=== PATIENT | male | born 1950 | race Two or more races ===

== ENCOUNTER 2024-10-28 11:52 | Inpatient (IN) | payer MEDICARE, MEDICAID ==
[2024-10-28] VITALS (27 sets, daily range): BP systolic 96–140; BP diastolic 65–86; PULSE 37–60; RESP 22–25; TEMP 96.8–99; O2SAT 93–100
[~2024-10-28] VITALS: Ht 177.8 cm; Wt 62.0 kg
[2024-10-28] MEDS: NOREPINEPHRINE 8 MG/250ML KIT 250 ML IV SCH (12:00)
--- NOTE | 2024-10-28 12:04 | ED.PDOC ---
CPR-HPI HPI Comments 72-year-old male with reported PMHx HTN, CAD brought in by EMS presents s/p cardiac arrest. Per EMS, patient was in the car with his and then suddenly became unresponsive. Bystander CPR was commenced for a total of 5 minutes till EMS arrived on scene. Patient was down for approximately 20 minutes then stable ROSC was achieved. Patient was given 3 rounds of Epi, 1 Sodium Bicarb, and 1 Calcium. Blood sugar for EMS was 130. Time Seen by MD: 11:48 Reviewed Notes: Automobile Service Advisor Notes, Medications, Allergies Allergies: Coded Allergies: UNOBTAINABLE (Unverified , 10/28/24) Information Source: Emergency Med Personnel Mode of Arrival: EMS Timing: Minutes Duration: Down time prior EMS: (5 mins), Total time prior hopital: (25 minutes) Onset: At rest, Witnessed Available Hx: Prior Cardiac Disease Inital rhythm: PEA Treatment: CPR, IV, Epinephrine Response: Sustained return of pulse Past Medical History PAST MEDICAL HISTORY: CAD, HTN Surgical History: Unknown Family History Family History: Unknown Social History Smoker: Unknown Alcohol: Unknown Drugs: Unknown Lives In: Home Constitutional: denies: chills, diaphoresis, fatigue, fever, malaise, sweats, weakness, others EENTM: denies: blurred vision, double vision, ear bleeding, ear discharge, ear drainage, ear pain, ear ringing, eye pain, eye redness, hearing loss, mouth pain, mouth swelling, nasal discharge, nose bleeding, nose congestion, nose pain, photophobia, tearing, throat pain, throat swelling, voice changes, others Respiratory: denies: cough, hemoptysis, orthopnea, SOB at rest, shortness of breath, SOB with excertion, stridor, wheezing, others Cardiovascular: denies: chest pain, dizzy spells, diaphoresis, Dyspnea on exertion, edema, irregular heart beat, left arm pain, lightheadedness, palpitations, PND, syncope, others Gastrointestinal: denies: abdomen distended, abdominal pain, blood streaked bowels, constipated, diarrhea, dysphagia, difficulty swallowing, hematemesis, melena, nausea, poor appetite, poor fluid intake, rectal bleeding, rectal pain, vomiting, others Genitourinary: denies: burning, dysuria, flank pain, frequency, hematuria, incontinence, penile discharge, penile sore, pain, testicle pain, testicle swelling, urgency, others Neurological: denies: dizziness, fainting, headache, left sided numbness, left sided weakness, numbness, paresthesia, pre-existing deficit, right sided numbness, right sided weakness, seizure, speech problems, tingling, tremors, weakness, others Musculoskeletal: denies: back pain, gout, joint pain, joint swelling, muscle pain, muscle stiffness, neck pain, others Integumetry: denies: bruises, change in color, change in hair/nails, dryness, laceration, lesions, lumps, rash, wounds, others Allergic/Immunocompromised: denies: Difficulty Healing, Frequent Infections, Hives, Itching, others Hematologic/Lymphatic: denies: anemia, blood clots, easy bleeding, easy bruising, swollen glands, others Endocrine: denies: excessive hunger, excessive sweating, excessive thirst, excessive urination, flushing, intolerance to cold, intolerance to heat, unexplained weight gain, unexplained weight loss, others Psychiatric: denies: anxiety, bipolar disorder, depression, hopeless, panic disorder, schizophrenia, sleepless, suicidal, others Unable to Obtain due to: Medical Urgency (S/P CPR) All Other Systems: Reviewed and Negative Physical Exam General Appearance: Severe Distress (S/P CPR) HEENT: NOT DONE Neck: NOT DONE Respiratory: NOT DONE Cardiovascular: NOT DONE Breast Exam: Deferred Gastrointestinal: NOT DONE Genitalia: Deferred Pelvic: Deferred Rectal: Deferred Extremities: NOT DONE Neurologic: NOT DONE Cerebellar Function: NOT DONE Reflexes: NOT DONE Skin: NOT DONE Lymphatic: NOT DONE Was a procedure done? 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 Physician, Other (Assisted by resident) Indication: Hypotension, Volume resuscitation Room prepared for procedure: Yes Production Foreman performed hand hygien: Yes Maximal sterile barrier precau: Mask/Eye shield, Sterile gown, Cap, Sterlie gloves, Large sterlie drape Skin Preparation: Chlorhexidine gluconate Skin preparation completely dr: Yes Insertion site: Right, Internal jugular Central line catheter type: [id number] dialysis Number of lumens: 3 Central line exchanged over a: Yes Antiseptic ointment applied to: Yes Post Assessment: Chest X-Ray, Proper placement, No Pneumothorax Informed consent obtained: No Risks/benefits/alt described: No Differential Dx CPR Differential Diagnosis: Cardiopulmonary arrest, Cardiac Tamponade, Heart Block, Myocardial Infarction, Pneumothorax, Pulmonary Embolus, Respiratory Failure X-Ray, Labs, Meds, VS Vital Signs Date Time Temp Pulse Resp B/P (MAP) Pulse Ox O2 Delivery O2 Flow Rate FiO2 10/28/24 15:48 44 24 166/83 (110) 40 94 10/28/24 15:21 163/88 10/28/24 15:07 98.6 57 25 135/86 97 100 98.6 10/28/24 15:00 96.3 43 24 168/85 (112) 94 96.3 10/28/24 15:00 168/85 10/28/24 14:45 44 24 94 10/28/24 14:45 163/76 10/28/24 14:41 98.6 57 25 135/86 97 98.6 10/28/24 14:41 57 25 97 Mechanical Ventilator+ 100 100 10/28/24 14:30 96.4 37 23 156/129 (138) 100 96.4 10/28/24 14:30 37 23 100 Mechanical Ventilator+ 50 50 10/28/24 14:30 156/129 10/28/24 14:30 44 21 163/76 (105) 95 10/28/24 14:15 37 23 156/129 (138) 100 10/28/24 14:00 48 24 149/78 (101) 100 10/28/24 14:00 149/78 10/28/24 14:00 149/78 10/28/24 14:00 149/78 10/28/24 13:47 46 24 102/60 (74) 50 96 10/28/24 13:45 130/64 10/28/24 13:30 145/79 10/28/24 13:30 45 24 145/79 (101) 100 10/28/24 13:15 48 22 102/60 (74) 100 10/28/24 13:00 94/49 10/28/24 13:00 94/49 10/28/24 13:00 42 24 94/49 (64) 100 10/28/24 12:45 42 17 79/44 (56) 98 10/28/24 12:30 42 20 100/61 (74) 98 10/28/24 12:15 43 15 107/58 (74) 100 10/28/24 12:06 45 24 65/38 (47) 100 100 10/28/24 12:00 54 18 70/36 (47) 99 10/28/24 12:00 66/35 10/28/24 12:00 66/35 10/28/24 11:54 51 10/28/24 11:52 98.6 57 25 135/86 (102) 98.6 Lab Test 10/28/24 17:32 10/28/24 17:10 10/28/24 15:54 10/28/24 15:02 Range/Units Sodium Level 137 136-145 mmol/L Potassium Level 4.9 # 3.5-5.1 mmol/L Chloride Level 105 98-107 mmol/L Carbon Dioxide Level 23 20-31 mmol/L Anion Gap 9 5-15 Blood Urea Nitrogen 61 #H 9-23 mg/dL Creatinine 4.93 H 0.700-1.30 mg/dL Glomerular Filtration Rate Calc 12 >90 mL/min BUN/Creatinine Ratio 12.4 10.0-20.0 Serum Glucose 127 H 74-106 mg/dL Lactic Acid Level 2.6 *H 0.4-2.0 mmol/L Calcium Level 7.3 L 8.7-10.4 mg/dL Total Bilirubin 0.6 0.2-1.0 mg/dL Direct Bilirubin 0.3 <0.3 mg/dL Aspartate Amino Transferase (AST) Pending Alanine Aminotransferase (ALT) Pending Alkaline Phosphatase 68 46-116 U/L Troponin I High Sensitivity 337 *H 238 *H </=54 ng/L Total Protein 4.9 L 5.7-8.2 g/dL Albumin 3.3 3.2-4.8 g/dL POC Glucose 140 H 114 H 70-106 mg/dl Test 10/28/24 14:54 10/28/24 13:48 10/28/24 13:46 10/28/24 12:10 Range/Units Sodium Level 135 L 136 136-145 mmol/L Potassium Level 7.4 *H 6.0 *H 3.5-5.1 mmol/L Chloride Level 103 104 98-107 mmol/L Carbon Dioxide Level 17 L 15 L 20-31 mmol/L Anion Gap 15 17 H 5-15 Blood Urea Nitrogen 50 H 55 H 9-23 mg/dL Creatinine 4.83 H 4.69 H 0.700-1.30 mg/dL Glomerular Filtration Rate Calc 12 13 >90 mL/min BUN/Creatinine Ratio 10.4 11.7 10.0-20.0 Serum Glucose 117 H 136 H 74-106 mg/dL Calcium Level 7.7 L 8.0 L 8.7-10.4 mg/dL Total Bilirubin 0.5 0.4 0.2-1.0 mg/dL Aspartate Amino Transferase (AST) 2686 H 2766 H 13-40 U/L Alanine Aminotransferase (ALT) 2252 H 2388 H 7-40 U/L Alkaline Phosphatase 71 72 46-116 U/L Total Protein 5.2 L 5.3 L 5.7-8.2 g/dL Albumin 3.4 3.5 3.2-4.8 g/dL Blood Gas Specimen Type Arterial Blood Gas Sample Site Left radial Blood Gas Patient Temperature 37.0 Arterial Blood Date Drawn [id number] Arterial Blood pH 7.214 *L 7.350-7.450 Arterial Blood Partial Pressure CO2 42.1 35.0-48.0 mmHg Arterial Blood Partial Pressure O2 517.9 *H 83.0-108.0 mmHg Arterial Blood HCO3 16.6 L 21.0-28.0 mmol/L Arterial Blood Oxygen Saturation 99.9 H 94.0-98.0 % Arterial Blood Base Excess -10.6 L -2.0-3.0 mmol/L Arterial Blood Oxyhemoglobin 98.3 H 94.0-98.0 % Arterial Blood Carboxyhemoglobin 1.1 0.5-1.5 % Arterial Blood Methemoglobin 0.5 0.0-1.5 % Cristhian Test Modified Blood Gas Total Hemoglobin 11.30 L 13.5-17.5 g/dL Blood Gas Set Respiration Rate 24.0 Blood Gas Modality Vent - ac Blood Gas Spontaneous Rate 24 FiO2 % 100.0 Blood Gas Tidal Volume 500.0 Blood Gas PEEP or CPAP 5.0 Blood Gas Critical Value Read Back Yes Blood Gas Notified Whom Blood Gas Notified Time [id number] Blood Gas Notified By Nakita yang Lactic Acid Level 4.9 *H 0.4-2.0 mmol/L Troponin I High Sensitivity 298 *H </=54 ng/L B-Type Natriuretic Peptide 661.66 0-100 pg/mL Urine Color Pending Urine Clarity Pending Urine pH Pending Urine Specific [place] Pending Urine Protein Pending Urine Ketones Pending Urine Blood Pending Urine Nitrite Pending Urine Bilirubin Pending Urine Urobilinogen Pending Urine Leukocyte Esterase Pending Urine RBC Pending Urine Microscopic WBC Pending Urine Squamous Epithelial Cells Pending Urine Bacteria Pending Urine Glucose Pending Phosphorus Level 11.7 H 2.4-5.1 mg/dL Magnesium Level 1.9 1.6-2.6 mg/dL Lipase 155 H 12-53 U/L Test 10/28/24 12:00 Range/Units White Blood Count 21.2 H 4.4-10.8 10^3/uL Red Blood Count 4.82 4.5-5.90 10^6/uL Hemoglobin 10.8 L 13.5-17.5 g/dL Hematocrit 39.2 L 41.0-53.0 % Mean Corpuscular Volume 81.2 80.0-100.0 fL Mean Corpuscular Hemoglobin 22.3 L 28.0-32.0 pg Mean Corpuscular Hemoglobin Concent 27.5 L 32.0-36.0 g/dL Red Cell Distribution Width 19.0 H 11.8-14.3 % Platelet Count 183 140-450 10^3/uL Mean Platelet Volume 8.5 6.9-10.8 fL Neutrophils (%) (Auto) 37.0-80.0 % Lymphocytes (%) (Auto) 10.0-50.0 % Monocytes (%) (Auto) 0.0-12.0 % Basophils (%) (Auto) 0.0-2.0 % Neutrophils # (Auto) 1.6-8.6 10 ^3/uL Lymphocytes # (Auto) 0.4-5.4 10 ^3/uL Monocytes # (Auto) 0-1.3 10 ^3/uL Differential Total Cells Counted 100.0 100 Neutrophils % (Manual) 78 37.0-80.0 Band Neutrophils % (Manual) 7 Lymphocytes % (Manual) 10 10.0-50.0 Monocytes % (Manual) 5 0-12 Eosinophils % (Manual) 0 0-7 Basophils % (Manual) 0 0.0-2.0 Metamyelocytes % (manual) 0 Myelocytes % (Manual) 0 Promyelocytes % (Manual) 0 Blast Cells % (Manual) 0 Reactive Lymphocytes 0 Platelet Estimate Adequate Hypochromasia (manual) Moderate Lactic Acid Level 7.7 *H 0.4-2.0 mmol/L Troponin I High Sensitivity 326 *H </=54 ng/L Current Medications Medications (Trade) Dose Ordered Sig/Sarita Route Start Time Stop Time Status Last Admin Calcium Gluconate/ Sodium Chloride 50 ml @ 100 mls/hr Q30M ONCE IV 10/28/24 13:15 10/28/24 13:44 DC 10/28/24 12:50 Sodium Bicarbonate 100 ml ONCE ONCE IV 10/28/24 13:15 10/28/24 13:16 DC 10/28/24 12:50 Cefepime HCl 50 ml @ 12.5 mls/hr ONCE ONCE IV 10/28/24 13:45 10/28/24 17:44 DC 10/28/24 15:08 Insulin Human Regular (InsuLIN R) 10 units ONCE ONCE IV 10/28/24 13:45 10/28/24 13:46 DC 10/28/24 15:37 Dextrose 50 ml ONCE ONCE IV 10/28/24 13:45 10/28/24 13:46 DC 10/28/24 15:37 Calcium Gluconate/ Sodium Chloride 50 ml @ 100 mls/hr Q30M IV 10/28/24 13:45 10/28/24 14:44 DC 10/28/24 14:00 Dopamine HCl/ Dextrose 250 ml @ 15.375 mls/ hr [id number] IV 10/28/24 13:45 10/28/24 14:00 Midazolam HCl 50 ml @ 1 mls/hr Q24H IV 10/28/24 14:45 10/28/24 15:21 Norepinephrine Bitartrate 250 ml @ 3.75 mls/hr Q24H IV 10/28/24 15:00 10/28/24 12:00 Time of 1ST Reevaluation: 12:00 Reevaluation 1ST: Unchanged Patient Education/Counseling: Pt Unresponsive Family Education/Counseling: No Family Present SEPSIS Sepsis Screen Physician Orders Ventilator Orders (10/28/24 12:00) Abg W/ Co-Ox (10/28/24 13:00) Respiratory Culture W/ Gs (10/28/24 12:00) Electrocardigram (10/28/24 11:59) Urinalysis (10/28/24 12:10) Chest Portable (10/28/24 12:10) Blood Culture (10/28/24 12:10) Head Without Contrast (10/28/24 12:10) Dobutamine 1000mcg/Ml (Dobutrex) (10/28/24 13:15) Sodium Chl 0.9% (So... W/Vasopressin (10/28/24 13:15) Dopamine 1600mcg/Ml D5w (10/28/24 13:45) Midazolam Drip 50 Mg/50ml (Versed Drip 5 (10/28/24 14:45) Rass Sedation Scale Q1HR (10/28/24 14:35) Norepinephrine 8 Mg/250ml Kit (Levophed) (10/28/24 15:00) Communication Order (10/28/24 14:52) Communication Order (10/28/24 14:52) Troponin-I Hs (10/28/24 16:56) Troponin-I Hs (10/28/24 18:56) Wound Culture W/ Gs (10/28/24 16:42) Comprehensive Metabolic Panel (10/28/24 17:17) Basic Metabolic Panel (10/28/24 21:39) Basic Metabolic Panel (10/29/24 01:39) Basic Metabolic Panel (10/29/24 05:39) Basic Metabolic Panel (10/29/24 09:39) Basic Metabolic Panel (10/29/24 13:39) Basic Metabolic Panel (10/29/24 17:39) Basic Metabolic Panel (10/29/24 21:39) Basic Metabolic Panel (10/30/24 01:39) Basic Metabolic Panel (10/30/24 05:39) Vancomycin Per Pharmacy (10/28/24 17:45) Piperacillin-Tazob 3.375gm (Zosyn 3.375g (10/28/24 18:00) Vital Signs Date Time Temp Pulse Resp B/P (MAP) Pulse Ox O2 Delivery O2 Flow Rate FiO2 10/28/24 15:48 44 24 166/83 (110) 40 94 10/28/24 15:21 163/88 10/28/24 15:07 98.6 57 25 135/86 97 100 98.6 10/28/24 15:00 96.3 43 24 168/85 (112) 94 96.3 7/30/25 15:00 168/85 10/28/24 14:45 44 24 94 10/28/24 14:45 163/76 10/28/24 14:41 98.6 57 25 135/86 97 98.6 10/28/24 14:41 57 25 97 Mechanical Ventilator+ 100 100 10/28/24 14:30 96.4 37 23 156/129 (138) 100 96.4 10/28/24 14:30 37 23 100 Mechanical Ventilator+ 50 50 10/28/24 14:30 156/129 10/28/24 14:30 44 21 163/76 (105) 95 10/28/24 14:15 37 23 156/129 (138) 100 10/28/24 14:00 48 24 149/78 (101) 100 10/28/24 14:00 149/78 10/28/24 14:00 149/78 10/28/24 14:00 149/78 10/28/24 13:47 46 24 102/60 (74) 50 96 10/28/24 13:45 130/64 10/28/24 13:30 145/79 10/28/24 13:30 45 24 145/79 (101) 100 10/28/24 13:15 48 22 102/60 (74) 100 10/28/24 13:00 94/49 10/28/24 13:00 94/49 10/28/24 13:00 42 24 94/49 (64) 100 10/28/24 12:45 42 17 79/44 (56) 98 10/28/24 12:30 42 20 100/61 (74) 98 10/28/24 12:15 43 15 107/58 (74) 100 10/28/24 12:06 45 24 65/38 (47) 100 100 10/28/24 12:00 54 18 70/36 (47) 99 10/28/24 12:00 66/35 10/28/24 12:00 66/35 10/28/24 11:54 51 10/28/24 11:52 98.6 57 25 135/86 (102) 98.6 Laboratory Tests Test 10/28/24 12:00 10/28/24 13:46 10/28/24 17:32 Lactic Acid Level 7.7 mmol/L (0.4-2.0) *H 4.9 mmol/L (0.4-2.0) *H 2.6 mmol/L (0.4-2.0) *H White Blood Count 21.2 10^3/uL (4.4-10.8) H Medications Medications Dose Ordered Sig/Sarita Route Start Time Stop Time Status Last Admin Dose Admin Calcium Gluconate/ Sodium Chloride 50 ml @ 100 mls/hr Q30M IV 10/28/24 13:45 10/28/24 14:44 DC 10/28/24 14:00 Calcium Gluconate/ Sodium Chloride 50 ml @ 100 mls/hr Q30M ONCE IV 10/28/24 13:15 10/28/24 13:44 DC 10/28/24 12:50 Cefepime HCl 50 ml @ 12.5 mls/hr ONCE ONCE IV 10/28/24 13:45 10/28/24 17:44 DC 10/28/24 15:08 Dextrose 50 ml ONCE ONCE IV 10/28/24 13:45 10/28/24 13:46 DC 10/28/24 15:37 Dopamine HCl/ Dextrose 250 ml @ 15.375 mls/ hr [id number] IV 10/28/24 13:45 10/28/24 14:00 Insulin Human Regular 10 units ONCE ONCE IV 10/28/24 13:45 10/28/24 13:46 DC 10/28/24 15:37 Midazolam HCl 50 ml @ 1 mls/hr Q24H IV 10/28/24 14:45 10/28/24 15:21 Norepinephrine Bitartrate 250 ml @ 3.75 mls/hr Q24H IV 10/28/24 15:00 10/28/24 12:00 Sodium Bicarbonate 100 ml ONCE ONCE IV 10/28/24 13:15 10/28/24 13:16 DC 10/28/24 12:50 Departure 1 Departure Time of Disposition: 18:43 (Patient presented in status post cardiac arrest. Patient was intubated in the field. A central line placed emergently and was started on vasopressors. Patient's empirically cover with antibiotics. We will admit patient for further workup and expert consultation) Impression: Primary Impression: Cardiac arrest Additional Impression: Acute hypoxic respiratory failure Disposition: ADMITTED INPATIENT Admit to: ICU Condition: Critical Critical Care Note Critical Care Time?: Yes Critical care comment: Status post cardiac arrest Authorized and Performed by: Ludwin Robertson MD Total critical care time: Approximately 192 minutes Due to a high probability of clinically significant, life threatening deterioration, the patient required my highest level of preparedness to intervene emergently and I personally spent this critical care time directly and personally managing the patient. This critical care time included obtaining a history; examining the patient; pulse oximetry; ordering and review of studies; arranging urgent treatment with development of a management plan; evaluation of patient's response to treatment; frequent reassessment; and, discussions with other providers. This critical care time was performed to assess and manage the high probability of imminent, life-threatening deterioration that could result in multi-organ failure. It was exclusive of separately billable procedures and treating other patients and teaching time. Please see my other sections and the rest of the note for further information on patient assessment and treatment. Heart Score Heart Score: Heart Score Response (Comments) Value History Highly Suspicious [address]-Deviation 2 Age >65 2 Risk Factors >3 or Hx ASHD 2 Troponin >3 x's Normal limit 2 Total 10 Stability Stability form required: No I personally scribed for LUDWIN ROBERTSON MD ([email or web address]) on 10/28/24 at 12:04. Electronically submitted by Scott Middleton [email or web address]). LUDWIN ROBERTSON MD Oct 28, 2024 12:04
[2024-10-28 12:46] LABS: Mean Corpuscular Volume 81.2 fL (80.0-100.0)
[2024-10-28 12:48] LABS: Hematocrit 39.2 % (41.0-53.0); Hemoglobin 10.8 g/dL (13.5-17.5); Mean Corpuscular Hemoglobin 22.3 pg (28.0-32.0)
[2024-10-28] MEDS: SODIUM BICARB 8.4% 50Meq/50ml SYR Vial IV ONE ×2 (12:50→14:32)
[2024-10-28] MEDS: CALCIUM GLUC 1,000mg/50ml-NS 50 ML IV ONE ×2 (12:50→18:52)
[2024-10-28 13:07] LABS: Lactic Acid w/Reflex 7.7 mmol/L (0.4-2.0)
--- NOTE | 2024-10-28 13:11 | DVHNC2 ---
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: Name of pallet stone inserter (BrayanDyllan) Indication: Hypotension, CVP monitoring, Volume resuscitation Room prepared for procedure: Yes Log Roper performed hand hygien: Yes Maximal sterile barrier precau: Mask/Eye shield, Sterile gown, Cap, Sterlie gloves, Large sterlie drape Skin Preparation: Chlorhexidine gluconate, Providine iodine Skin preparation completely dr: Yes Insertion site: Right, Internal jugular Central line catheter type: [id number] dialysis Number of lumens: 3 Central line exchanged over a: No Antiseptic ointment applied to: Yes Post Assessment: Chest X-Ray, No Pneumothorax Notes . A time out was performed. My hands were washed and used a sterile gown and gloves. RIGHT chest region was prepped using chlorhexidine scrub and draped in sterile fashion using a full drape and sterile probe cover and sterile gel employed. The medial and lateral heads of the sternocleidomastoid muscle were identified as was the carotid pulse. The Internal Jugular vein was identified using the ultrasound. Anesthesia was achieved over the vein using 1% lidocaine. Using real-time out of plane guidance, the introducer needle was inserted into the Internal Jugular vein under direct ultrasound visualization. Venous blood was withdrawn. The syringe was removed and a guidewire was advanced into the introducer needle. The guidewire was visualized in the Internal Jugular Vein by ultrasound. A small incision was made at the skin surface with a scalpel and the introducer needle was exchanged for a dilator over the guidewire. After appropriate dilation was obtained, the dilator was exchanged over the wire for a _ central venous catheter. The wire was removed and the catheter was sutured in place at 2 places. A sterile sorbaview shield was placed over the catheter at the insertion site. The patient tolerated the procedure without any hemodynamic compromise. At time of procedure completion, all ports aspirated and flushed properly. Post-procedure chest x-ray ruled out pneumothorax. Date of Service: Oct 28, 2024 Billing Provider: LUDWIN RIVAS MD Common Visit Codes: PROCEDURE ONLY Procedure Codes: 44755-SWPHFP NON-TUNNEL CV CATH DYLLAN CARDONA RESIDENT Oct 28, 2024 13:11
[2024-10-28 13:12] LABS: Albumin 3.5 g/dL (3.2-4.8); Alkaline Phosphatase 72 U/L (46-116); Anion Gap 17 (5-15); BUN/Creatinine Ratio 11.7 (10.0-20.0); Bilirubin, Total 0.4 mg/dL (0.2-1.0); Chloride 104 mmol/L (98-107); Magnesium 1.9 mg/dL (1.6-2.6)
[2024-10-28] MEDS: DOBUTamine 1000MCG/ML 250 ML IV ONE ×2 (13:15→14:33)
[2024-10-28] MEDS: VASOPRESSIN 20 UNITS in SODIUM CHL 0.9% 99 ML IV SCH (13:15)
[2024-10-28 13:26] LABS: Alanine Aminotransferase 2388 U/L (7-40); Blood Urea Nitrogen 55 mg/dL (9-23); Calcium 8.0 mg/dL (8.7-10.4); Carbon Dioxide 15 mmol/L (20-31); Glucose 136 mg/dL (74-106); Lipase 155 U/L (12-53); Sodium 136 mmol/L (136-145); Total Protein 5.3 g/dL (5.7-8.2)
[2024-10-28 13:30] LABS: Potassium 6.0 mmol/L (3.5-5.1)
[2024-10-28] MEDS: CALCIUM GLUC 1,000mg/50ml-NS 50 ML IV SCH (13:30)
[2024-10-28 13:32] LABS: Total Cells Counted 100.0 (100)
--- NOTE | 2024-10-28 13:40 | DVH ---
CHEST RADIOGRAPH Indication: cardiac arrest Technique: Single frontal view of the chest was obtained COMPARISON: None FINDINGS: Lines and Tubes: Endotracheal tube, enteric catheter and right central venous catheter in satisfactor y position. Lungs: Clear Pleura: No effusion. No pneumothorax. Cardiomediastinal contours: Unremarkable Bones: Unremarkable IMPRESSION: Endotracheal tube, enteric catheter and right central venous catheter in satisfactory position.
[2024-10-28 13:57] LABS: Base Excess -10.6 mmol/L (-2.0-3.0)
[2024-10-28] MEDS: DOPamine 1600MCG/ML D5W 250 ML IV SCH (14:00)
--- NOTE | 2024-10-28 14:31 | DVH ---
EXAM: CT HEAD WITHOUT CONTRAST HISTORY: cardiac arrest COMPARISON: None TECHNIQUE: Noncontrast axial CT images of the head were performed. Sagittal and coronal reformatted i mages were obtained. This CT exam was performed using 1 or more of the following dose reduction techn iques: Automated exposure control, adjustment of the mA and/or kv according to patient size, or the u se of iterative reconstruction techniques. Radiation Dose: CTDI volume is 55.89 mGy. Dose-length product is 1099.68 mGy*cm FINDINGS: There is mild global brain atrophy. No intracranial hemorrhage, mass, midline shift, hydrocephalus, o r evidence of acute large vessel infarct. There is mild sclerosis and fluid density in the bilateral mastoid air cells. There is mucosal thickening of the right ethmoid and sphenoid sinuses. No cranial fracture or scalp edema. Endotracheal tube and left NG tube are partially visualized. The patient is completely edentulous. IMPRESSION: 1. No acute intracranial process. 2. Mechanical ventilation with partially visualized Endotracheal tube and Left NG tube. 3. Mild right ethmoid and sphenoid sinus disease. 4. 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
[2024-10-28] MEDS: NOREPINEPHRINE 8 MG/250ML KIT 250 ML IV ONE (14:32)
[2024-10-28] MEDS: VASOPRESSIN 20 UNIT/ML ONE (14:34)
[2024-10-28] MEDS: CALCIUM GLUC 1,000mg/50ml-NS 100 ML IV ONE (14:34)
[2024-10-28] MEDS: MIDAZOLAM DRIP 50 mg/50mL 50 ML IV ONE (14:35)
[2024-10-28] MEDS: CEFEPIME 2GM/50ML NS 50 ML IV ONE (15:08)
[2024-10-28] MEDS: MIDAZOLAM DRIP 50 mg/50mL 50 ML IV SCH (15:21)
[2024-10-28] MEDS: DEXTROSE (50%) 50ML SYRG IV ONE (15:37)
[2024-10-28] MEDS: InsuLIN REG 1unit/0.01ml Soln (100units/ml) IV ONE ×2 (15:37→18:32)
[2024-10-28 16:45] LABS: Albumin 3.4 g/dL (3.2-4.8); Bilirubin, Total 0.5 mg/dL (0.2-1.0)
[2024-10-28 16:46] LABS: Chloride 103 mmol/L (98-107)
[2024-10-28 16:54] LABS: BUN/Creatinine Ratio 10.4 (10.0-20.0)
[2024-10-28 17:02] LABS: Sodium 135 mmol/L (136-145)
[2024-10-28 17:04] LABS: Alanine Aminotransferase 2252 U/L (7-40); Alkaline Phosphatase 71 U/L (46-116); Anion Gap 15 (5-15); Blood Urea Nitrogen 50 mg/dL (9-23); Calcium 7.7 mg/dL (8.7-10.4); Carbon Dioxide 17 mmol/L (20-31); Glucose 117 mg/dL (74-106); Potassium 7.4 mmol/L (3.5-5.1); Total Protein 5.2 g/dL (5.7-8.2)
[2024-10-28] MEDS ORDERED: VANCOMYCIN PER PHARMACY 0 MG IV SCH (17:45)
[2024-10-28] MEDS ORDERED: HYDROmorphone HCL 2 MG/ML VL/or syr IV PRN (17:45)
[2024-10-28] MEDS ORDERED: ONDANSETRON HCL 4 MG/2 ML VIAL IV PRN (17:45)
--- NOTE | 2024-10-28 17:56 | DVHHP2 ---
Admitting Diagnosis: Cardiac arrest achieved rosc History of Present Illness 72-year-old male with reported PMHx HTN, CAD brought in by EMS presents s/p cardiac arrest. Per EMS, patient was in the car with his and then suddenly became unresponsive. Bystander CPR was commenced for a total of 5 minutes till EMS arrived on scene. Patient was down for approximately 20 minutes then stable ROSC was achieved. Patient was given 3 rounds of Epi, 1 Sodium Bicarb, and 1 Calcium. Blood sugar for EMS was 130. PAST MEDICAL HISTORY: CAD, HTN Surgical History: Unknown Family History Family History: Unknown Social History Smoker: Unknown Alcohol: Unknown Drugs: Unknown Lives In: Home Allergies: Coded Allergies: UNOBTAINABLE (Unverified , 10/28/24) Current Medications Current Medications Medications (Trade) Dose Ordered Sig/Sarita Route PRN Reason Start Time Stop Time Status Last Admin Vasopressin 20 units/Sodium Chloride 100 ml @ 9 mls/hr Q11H7M IV 10/28/24 13:15 Calcium Gluconate/ Sodium Chloride 50 ml @ 100 mls/hr Q30M IV 10/28/24 13:45 10/28/24 14:44 DC 10/28/24 14:00 Dopamine HCl/ Dextrose 250 ml @ 15.375 mls/ hr [id number] IV 10/28/24 13:45 10/28/24 14:00 Midazolam HCl 50 ml @ 1 mls/hr Q24H IV 10/28/24 14:45 10/28/24 15:21 Norepinephrine Bitartrate 250 ml @ 3.75 mls/hr Q24H IV 10/28/24 15:00 10/28/24 12:00 Vancomycin HCl 0 ml @ 0 mls/hr UD IV 10/28/24 17:45 UNV Piperacillin Sod/ Tazobactam Sod 100 ml @ 100 mls/hr Q8H IV 10/28/24 17:45 UNV Sodium Chloride (Saline Lock Ns) 10 ml Q8HR IV 10/28/24 22:00 UNV Hydromorphone HCl (Dilaudid Injection) 0.5 mg Q4HP PRN IV SEVERE PAIN (7-10 PAIN SCALE) 10/28/24 17:45 UNV Ondansetron HCl (Zofran) 4 mg Q4HP PRN IV NAUSEA / VOMITING 10/28/24 17:45 UNV Vital Signs Vital Signs Date Time Temp Pulse Resp B/P (MAP) Pulse Ox O2 Delivery O2 Flow Rate FiO2 10/28/24 15:48 44 24 166/83 (110) 40 94 10/28/24 15:07 98.6 98.6 10/28/24 14:41 Mechanical Ventilator+ Physical Exam Generally-72 years old male, intubated, sedated. No apparent distress HEENT-atraumatic, normocephalic nine heart-sinus bradycardic Clear to auscultate bilaterally Abdomen soft nontender nondistended Musculoskeletal-no edema cyanosis Neuro-intubated and sedated SEPSIS Sepsis Screen Date sepsis recognized/suspect: Oct 28, 2024 Time Sepsis recognized/suspect: 115 Recent Procedure: No On Antibiotic Therapy: No Respiratory Rate >20: Yes Heart Rate >90: No Temp<36 C (96.8 F) or >38.3 C: No SBP <90 or MAP <65 mmHG: No New Acute Mental Status Change: Yes Is the patient on CPAP, BIPAP,: Yes Physician Orders Ventilator Orders (10/28/24 12:00) Abg W/ Co-Ox (10/28/24 13:00) Respiratory Culture W/ Gs (10/28/24 12:00) Electrocardigram (10/28/24 11:59) Urinalysis (10/28/24 12:10) Chest Portable (10/28/24 12:10) Blood Culture (10/28/24 12:10) Head Without Contrast (10/28/24 12:10) Dobutamine 1000mcg/Ml (Dobutrex) (10/28/24 13:15) Sodium Chl 0.9% (So... W/Vasopressin (10/28/24 13:15) Cefepime 2gm/50ml Ns (Maxipime 2gm/50ml) (10/28/24 13:45) Dopamine 1600mcg/Ml D5w (10/28/24 13:45) Midazolam Drip 50 Mg/50ml (Versed Drip 5 (10/28/24 14:45) Rass Sedation Scale Q1HR (10/28/24 14:35) Norepinephrine 8 Mg/250ml Kit (Levophed) (10/28/24 15:00) Communication Order (10/28/24 14:52) Communication Order (10/28/24 14:52) Troponin-I Hs (10/28/24 15:56) Troponin-I Hs (10/28/24 16:56) Troponin-I Hs (10/28/24 18:56) Lactic Acid W/ Reflex Order (10/28/24 15:56) Echo 2d Mode Cardiac Dop (10/28/24 15:56) Wound Culture W/ Gs (10/28/24 16:42) Comprehensive Metabolic Panel (10/28/24 17:17) Insulin R (Human) (Insulin R) (10/28/24 17:45) Calcitriol Injectable (Calcitriol Inject (10/28/24 17:45) Basic Metabolic Panel (10/28/24 17:39) Basic Metabolic Panel (10/28/24 21:39) Basic Metabolic Panel (10/29/24 01:39) Basic Metabolic Panel (10/29/24 05:39) Basic Metabolic Panel (10/29/24 09:39) Basic Metabolic Panel (10/29/24 13:39) Basic Metabolic Panel (10/29/24 17:39) Basic Metabolic Panel (10/29/24 21:39) Basic Metabolic Panel (10/30/24 01:39) Basic Metabolic Panel (10/30/24 05:39) Vancomycin Per Pharmacy (10/28/24 17:45) Piperacillin-Tazob 3.375gm (Zosyn 3.375g (10/28/24 17:45) Admit (10/28/24 17:40) Code Status (10/28/24 17:40) Vital Signs .PER UNIT PROTOCOL (10/28/24 17:40) Review Orders With Adm. (10/28/24 17:40) Encourage Activity As Tolerate (10/28/24 17:40) Npo (Nothing By Mouth) Diet (10/28/24 Dinner) Sodium Chloride Lock (Saline Lock Ns) (10/28/24 22:00) Notify Md Of Changes From Base (10/28/24 17:40) Advance Directive (10/28/24 17:40) Patient Condition (10/28/24 17:40) Allergies (10/28/24 17:40) Hydromorphone Injection (Dilaudid Inject (10/28/24 17:45) Ondansetron Hcl (Zofran) (10/28/24 17:45) Complete Blood Count (10/29/24 05:00) Complete Blood Count (10/30/24 05:00) Complete Blood Count (10/31/24 05:00) Complete Blood Count (11/01/24 05:00) Complete Blood Count (11/02/24 05:00) Comprehensive Metabolic Panel (10/29/24 05:00) Comprehensive Metabolic Panel (10/30/24 05:00) Comprehensive Metabolic Panel (10/31/24 05:00) Comprehensive Metabolic Panel (11/01/24 05:00) Comprehensive Metabolic Panel (11/02/24 05:00) Vital Signs Date Time Temp Pulse Resp B/P (MAP) Pulse Ox O2 Delivery O2 Flow Rate FiO2 10/28/24 15:48 44 24 166/83 (110) 40 94 10/28/24 15:21 163/88 10/28/24 15:07 98.6 57 25 135/86 97 100 98.6 10/28/24 15:00 168/85 10/28/24 14:45 44 24 94 10/28/24 14:45 163/76 10/28/24 14:41 98.6 57 25 135/86 97 98.6 10/28/24 14:41 57 25 97 Mechanical Ventilator+ 100 100 10/28/24 14:30 96.4 37 23 156/129 (138) 100 96.4 10/28/24 14:30 37 23 100 Mechanical Ventilator+ 50 50 10/28/24 14:30 156/129 10/28/24 14:30 44 21 163/76 (105) 95 10/28/24 14:15 37 23 156/129 (138) 100 10/28/24 14:00 48 24 149/78 (101) 100 10/28/24 14:00 149/78 10/28/24 14:00 149/78 10/28/24 14:00 149/78 10/28/24 13:47 46 24 102/60 (74) 50 96 10/28/24 13:45 130/64 10/28/24 13:30 145/79 10/28/24 13:30 45 24 145/79 (101) 100 10/28/24 13:15 48 22 102/60 (74) 100 10/28/24 13:00 94/49 10/28/24 13:00 94/49 10/28/24 13:00 42 24 94/49 (64) 100 10/28/24 12:45 42 17 79/44 (56) 98 10/28/24 12:30 42 20 100/61 (74) 98 10/28/24 12:15 43 15 107/58 (74) 100 10/28/24 12:06 45 24 65/38 (47) 100 100 10/28/24 12:00 54 18 70/36 (47) 99 10/28/24 12:00 66/35 10/28/24 12:00 66/35 10/28/24 11:54 51 10/28/24 11:52 98.6 57 25 135/86 (102) 98.6 Laboratory Tests Test 10/28/24 12:00 10/28/24 13:46 Lactic Acid Level 7.7 mmol/L (0.4-2.0) *H 4.9 mmol/L (0.4-2.0) *H White Blood Count 21.2 10^3/uL (4.4-10.8) H Medications Medications Dose Ordered Sig/Sarita Route Start Time Stop Time Status Last Admin Dose Admin Calcium Gluconate/ Sodium Chloride 50 ml @ 100 mls/hr Q30M IV 10/28/24 13:45 10/28/24 14:44 DC 10/28/24 14:00 Calcium Gluconate/ Sodium Chloride 50 ml @ 100 mls/hr Q30M ONCE IV 10/28/24 13:15 10/28/24 13:44 DC 10/28/24 12:50 Cefepime HCl 50 ml @ 12.5 mls/hr ONCE ONCE IV 10/28/24 13:45 10/28/24 17:44 10/28/24 15:08 Dextrose 50 ml ONCE ONCE IV 10/28/24 13:45 10/28/24 13:46 DC 10/28/24 15:37 Dopamine HCl/ Dextrose 250 ml @ 15.375 mls/ hr [id number] IV 10/28/24 13:45 10/28/24 14:00 Insulin Human Regular 10 units ONCE ONCE IV 10/28/24 13:45 10/28/24 13:46 DC 10/28/24 15:37 Midazolam HCl 50 ml @ 1 mls/hr Q24H IV 10/28/24 14:45 10/28/24 15:21 Norepinephrine Bitartrate 250 ml @ 3.75 mls/hr Q24H IV 10/28/24 15:00 10/28/24 12:00 Sodium Bicarbonate 100 ml ONCE ONCE IV 10/28/24 13:15 10/28/24 13:16 DC 10/28/24 12:50 Results Labs Test 10/28/24 17:10 10/28/24 15:54 10/28/24 14:54 10/28/24 13:48 Range/Units POC Glucose 140 H 70-106 mg/dl Troponin I High Sensitivity 238 *H </=54 ng/L Sodium Level 135 L 136-145 mmol/L Potassium Level 7.4 *H 3.5-5.1 mmol/L Chloride Level 103 98-107 mmol/L Carbon Dioxide Level 17 L 20-31 mmol/L Anion Gap 15 5-15 Blood Urea Nitrogen 50 H 9-23 mg/dL Creatinine 4.83 H 0.700-1.30 mg/dL Glomerular Filtration Rate Calc 12 >90 mL/min BUN/Creatinine Ratio 10.4 10.0-20.0 Serum Glucose 117 H 74-106 mg/dL Calcium Level 7.7 L 8.7-10.4 mg/dL Total Bilirubin 0.5 0.2-1.0 mg/dL Aspartate Amino Transferase (AST) 2686 H 13-40 U/L Alanine Aminotransferase (ALT) 2252 H 7-40 U/L Alkaline Phosphatase 71 46-116 U/L Total Protein 5.2 L 5.7-8.2 g/dL Albumin 3.4 3.2-4.8 g/dL Blood Gas Specimen Type Arterial Blood Gas Sample Site Left radial Blood Gas Patient Temperature 37.0 Arterial Blood Date Drawn [id number] Arterial Blood pH 7.214 *L 7.350-7.450 Arterial Blood Partial Pressure CO2 42.1 35.0-48.0 mmHg Arterial Blood Partial Pressure O2 517.9 *H 83.0-108.0 mmHg Arterial Blood HCO3 16.6 L 21.0-28.0 mmol/L Arterial Blood Oxygen Saturation 99.9 H 94.0-98.0 % Arterial Blood Base Excess -10.6 L -2.0-3.0 mmol/L Arterial Blood Oxyhemoglobin 98.3 H 94.0-98.0 % Arterial Blood Carboxyhemoglobin 1.1 0.5-1.5 % Arterial Blood Methemoglobin 0.5 0.0-1.5 % Cristhian Test Modified Blood Gas Total Hemoglobin 11.30 L 13.5-17.5 g/dL Blood Gas Set Respiration Rate 24.0 Blood Gas Modality Vent - ac Blood Gas Spontaneous Rate 24 FiO2 % 100.0 Blood Gas Tidal Volume 500.0 Blood Gas PEEP or CPAP 5.0 Blood Gas Critical Value Read Back Yes Blood Gas Notified Whom Blood Gas Notified Time [id number] Blood Gas Notified By Nakita ernandez rt Test 10/28/24 13:46 10/28/24 12:10 10/28/24 12:00 Range/Units Lactic Acid Level 4.9 *H 0.4-2.0 mmol/L B-Type Natriuretic Peptide 661.66 0-100 pg/mL Phosphorus Level 11.7 H 2.4-5.1 mg/dL Magnesium Level 1.9 1.6-2.6 mg/dL Lipase 155 H 12-53 U/L White Blood Count 21.2 H 4.4-10.8 10^3/uL Red Blood Count 4.82 4.5-5.90 10^6/uL Hemoglobin 10.8 L 13.5-17.5 g/dL Hematocrit 39.2 L 41.0-53.0 % Mean Corpuscular Volume 81.2 80.0-100.0 fL Mean Corpuscular Hemoglobin 22.3 L 28.0-32.0 pg Mean Corpuscular Hemoglobin Concent 27.5 L 32.0-36.0 g/dL Red Cell Distribution Width 19.0 H 11.8-14.3 % Platelet Count 183 140-450 10^3/uL Mean Platelet Volume 8.5 6.9-10.8 fL Neutrophils (%) (Auto) 37.0-80.0 % Lymphocytes (%) (Auto) 10.0-50.0 % Monocytes (%) (Auto) 0.0-12.0 % Basophils (%) (Auto) 0.0-2.0 % Neutrophils # (Auto) 1.6-8.6 10 ^3/uL Lymphocytes # (Auto) 0.4-5.4 10 ^3/uL Monocytes # (Auto) 0-1.3 10 ^3/uL Differential Total Cells Counted 100.0 100 Neutrophils % (Manual) 78 37.0-80.0 Band Neutrophils % (Manual) 7 Lymphocytes % (Manual) 10 10.0-50.0 Monocytes % (Manual) 5 0-12 Eosinophils % (Manual) 0 0-7 Basophils % (Manual) 0 0.0-2.0 Metamyelocytes % (manual) 0 Myelocytes % (Manual) 0 Promyelocytes % (Manual) 0 Blast Cells % (Manual) 0 Reactive Lymphocytes 0 Platelet Estimate Adequate Hypochromasia (manual) Moderate Primary Diagnosis Cardiac arrest achieved cirrhosis Septic shock Elevated troponin rule out ACS Lactic acidosis Left knee edema Acute hypoxic respiratory failure requiring intubation WILMER on CKD Hyperkalemia Plan Patient is on pressors for pressure support. goal MAP > 65 while septic IV vanco/zosyn Check BCx, sputum culture, urine culture daily abg continue vent daily SBT/SAT monitor urine output trend lactic acid until normalize trend trop until plateau. if elevated repeat ekg check echo cardiology consult nephrology consult checkurine sodium, urine creatinine check BMP q4h until normalize if elevated, follow hyperkalemia protocol or page physician full code NPO inset NGT scd for dvt ppx ppi for gi ppx Plan discussed with: Patient Problems List: (1) Cardiac arrest (2) WILMER (acute kidney injury) (3) Acute hypoxic respiratory failure Date of Service: Oct 28, 2024 Billing Provider: KELLY WALL MD Common Visit Codes: [id number] CARE 30-74 MIN, [id number] CARE-EACH +30MIN KELLY WALL MD Oct 28, 2024 17:56
[2024-10-28] MEDS: SODIUM CHLORIDE 0.9% 1,000 ML IV ONE (18:05)
[2024-10-28 18:12] LABS: Alkaline Phosphatase 68 U/L (46-116); BUN/Creatinine Ratio 12.4 (10.0-20.0); Carbon Dioxide 23 mmol/L (20-31)
[2024-10-28 18:13] LABS: Albumin 3.2 g/dL (3.2-4.8); Bilirubin, Total 0.6 mg/dL (0.2-1.0)
[2024-10-28 18:15] LABS: Anion Gap 9 (5-15)
[2024-10-28 18:16] LABS: Blood Urea Nitrogen 61 mg/dL (9-23); Calcium 7.3 mg/dL (8.7-10.4); Chloride 105 mmol/L (98-107); Glucose 127 mg/dL (74-106); Potassium 4.9 mmol/L (3.5-5.1); Sodium 137 mmol/L (136-145); Total Protein 4.9 g/dL (5.7-8.2)
[2024-10-28 18:17] LABS: Lactic Acid w/Reflex 2.6 mmol/L (0.4-2.0)
[2024-10-28 18:20] LABS: Albumin 3.3 g/dL (3.2-4.8); Alkaline Phosphatase 68.0 U/L (46-116); Bilirubin, Direct 0.3 mg/dL (<0.3); Bilirubin, Total 0.6 mg/dL (0.2-1.0); Total Protein 4.9 g/dL (5.7-8.2)
[2024-10-28] MEDS: CALCITRIOL 1 MCG/ML AMPULE IV ONE (18:24)
[2024-10-28] MEDS: PIPERACILLIN-TAZOB 3.375GM 100 ML IV ONE (18:36)
[2024-10-28 18:45] LABS: Alanine Aminotransferase 2140.0 U/L (7-40)
[2024-10-28 18:46] LABS: Alanine Aminotransferase 2147 U/L (7-40)
--- NOTE | 2024-10-28 19:37 | DVH ---
ABDOMINAL ULTRASOUND CLINICAL HISTORY: elevated liver enzyme and abeba TECHNIQUE: Multiple grayscale and color Doppler ultrasound images were obtained of the abdomen. WID: COMPARISON: None FINDINGS: Liver and Biliary System: Homogeneous echotexture, normal size measuring 16.1 cm. No focal hepatic observations. No intrahepatic bile duct dilatation. The common duct measures 0.8 cm at the malina h epatis. The gallbladder is distended with wall thickening and edema measuring 1.1 cm. There is 0.3 cm polyp along the gallbladder wall. Pancreas: Not well seen due to overlying bowel gas. Spleen: is within normal limits. Kidneys: The right kidney is 11.4 cm and the left kidney is 8.3 cm. Increased echogenicity of the bilateral kidneys. No hydronephrosis. There is a nonobstructing left lower pole renal calculus measur ing 1.4 cm Aorta: Visualized portions are normal in caliber. IVC: Visualized portions are normal in caliber. Peritoneal Space: Mild ascites IMPRESSION: Distention of the gallbladder with wall thickening and edema. No cholelithiasis. Acute acalculous cho lecystitis is in the differential. Mild dilatation of the common bile duct. If there is clinical concern for biliary obstruction, MRCP could be pursued for further evaluation. Increased echogenicity of the bilateral kidneys which could be due to medical renal disease. Mild ascites. Nonobstructing left lower pole renal calculus measuring 1.4 cm
[2024-10-28 20:12] LABS: INR 1.74 (0.9-1.15); Prothrombin Time 17.5 sec (9.3-11.8)
[2024-10-28] MEDS: VANCOMYCIN 1.5GM/300ML 300 ML IV ONE (20:25)
[2024-10-28 21:52] LABS: Chloride 104 mmol/L (98-107); Potassium 5.0 mmol/L (3.5-5.1); Sodium 137 mmol/L (136-145)
[2024-10-28 21:53] LABS: Anion Gap 12 (5-15); Carbon Dioxide 21 mmol/L (20-31)
[2024-10-28 21:58] LABS: BUN/Creatinine Ratio 11.6 (10.0-20.0); Glucose 106 mg/dL (74-106)
[2024-10-28] MEDS: SODIUM CHLOR 0.9% PF (SALINE LOCK) 10ML VIAL/SYR IV SCH (22:04)
[2024-10-28 22:09] LABS: Blood Urea Nitrogen 59 mg/dL (9-23); Calcium 7.3 mg/dL (8.7-10.4)
[2024-10-28 22:50] LABS: Hematocrit 33.7 % (41.0-53.0); Hemoglobin 10.3 g/dL (13.5-17.5); Mean Corpuscular Hemoglobin 22.3 pg (28.0-32.0); Mean Corpuscular Volume 73.0 fL (80.0-100.0); Nucleated Red Blood Cells % 0.0 %
[2024-10-28 23:03] LABS: INR 1.82 (0.9-1.15); Partial Thromboplastin Time 30.8 SEC (24.5-34.5); Prothrombin Time 18.2 sec (9.3-11.8)
[2024-10-28] MEDS: HEPARIN SODIUM (PORCINE) 5000 UNITS/ML 1ML VIAL IV ONE (23:26)
[2024-10-28] MEDS: HEPARIN DRIP/D5W 100UNITS/ML 250 ML IV SCH (23:27)
[2024-10-29] VITALS (111 sets, daily range): BP systolic 82–129; BP diastolic 52–82; PULSE 49–76; RESP 4–24; TEMP 98.1–100.4; O2SAT 91–100
[2024-10-29 05:24] LABS: Hematocrit 34.2 % (41.0-53.0); Hemoglobin 10.5 g/dL (13.5-17.5); Mean Corpuscular Hemoglobin 22.4 pg (28.0-32.0); Mean Corpuscular Volume 73.0 fL (80.0-100.0); Nucleated Red Blood Cells % 0.1 %
[2024-10-29] MEDS: PIPERACILLIN-TAZOB 3.375GM 100 ML IV SCH (05:37)
[2024-10-29 05:46] LABS: Alkaline Phosphatase 64 U/L (46-116); Anion Gap 12 (5-15); BUN/Creatinine Ratio 11.9 (10.0-20.0); Chloride 105 mmol/L (98-107); Glucose 98 mg/dL (74-106); Potassium 4.7 mmol/L (3.5-5.1); Sodium 136 mmol/L (136-145)
[2024-10-29 05:47] LABS: Bilirubin, Total 0.5 mg/dL (0.2-1.0)
[2024-10-29 05:56] LABS: INR 1.71 (0.9-1.15); Prothrombin Time 17.2 sec (9.3-11.8)
[2024-10-29 06:03] LABS: Alanine Aminotransferase 1762 U/L (7-40); Albumin 3.0 g/dL (3.2-4.8); Blood Urea Nitrogen 61 mg/dL (9-23); Calcium 6.5 mg/dL (8.7-10.4); Carbon Dioxide 19 mmol/L (20-31); Total Protein 4.9 g/dL (5.7-8.2)
[2024-10-29 06:06] LABS: Partial Thromboplastin Time 114.2 SEC (24.5-34.5)
[2024-10-29 06:21] LABS: Base Excess -6.8 mmol/L (-2.0-3.0)
[2024-10-29] MEDS: HEPARIN DRIP/D5W 100UNITS/ML 250 ML IV SCH ×2 (07:16→22:00)
[2024-10-29] MEDS: PANTOPRAZOLE 40 MG/10 ML VIAL INJ IV SCH (07:37)
--- NOTE | 2024-10-29 09:26 | DVHINCON2 ---
Date Seen: Oct 29, 2024 Referring Physician MD Silas Reason for Consultation Elevated troponin, rule out ACS History of Present Illness This is a 74-year-old male patient who presents to emergency room status post cardiopulmonary arrest with return of spontaneous circulation. At the time of assessment, the patient remains chemically sedated and mechanically ventilated. The patient's Antonette is at bedside and able to provide accurate history. Per the patient's , the patient was getting ready to take their dog to it's veterinary appointment. The patient was driving and suddenly became unresponsive. The patient's then pulled his cell phone out of his pocket and called emergency medical services. She states that it appeared that the patient had stopped breathing and she was not able to feel a pulse. She did not start CPR and waited for EMS to arrive. When EMS arrived, they began CPR and continued CPR en route to the hospital. According to ER documentation, ROS was achieved prior to emergency room arrival. Estimated downtime approximately 20 minutes per ER physician documentation. Initial twelve lead electrocardiogram done in the emergency room reveals sinus bradycardia with PVC and abnormal T- wave inversion in anterolateral leads. Initial troponin level of 326ng/L with flat trend thereafter. Significant past medical history includes coronary artery disease not amenable to catheter based intervention, myocardial infarction, and heavy tobacco use. The patient's state that the patient sees rn invasive in [place]. She states that the patient underwent a coronary angiogram over 10 years ago in which they found that the patient does have significant blockage but it was not amenable to any catheter based intervention; thus, patient does not have any stents placed. Past Medical History Past medical history reviewed. No other significant than mentioned above. Past Surgical History Right [id number] amputation Left knee replacement Left arm fasciotomy Family History Family history reviewed. Social History Patient has a 50 pack-year history, smokes approximately one pack per day No illicit drug use per patient's No alcohol use, per patient's Allergies: Coded Allergies: UNOBTAINABLE (Unverified , 10/28/24) Home Meds Unable to obtain Current Medications Current Medications Medications (Trade) Dose Ordered Sig/Sarita Route PRN Reason Start Time Stop Time Status Last Admin Vasopressin 20 units/Sodium Chloride 100 ml @ 9 mls/hr Q11H7M IV 10/28/24 13:15 Calcium Gluconate/ Sodium Chloride 50 ml @ 100 mls/hr Q30M IV 10/28/24 13:45 10/28/24 14:44 DC 10/28/24 14:00 Dopamine HCl/ Dextrose 250 ml @ 15.375 mls/ hr [id number] IV 10/28/24 13:45 10/29/24 02:10 Midazolam HCl 50 ml @ 1 mls/hr Q24H IV 10/28/24 14:45 10/29/24 04:21 Norepinephrine Bitartrate 250 ml @ 3.75 mls/hr Q24H IV 10/28/24 15:00 10/28/24 12:00 Vancomycin HCl 0 ml @ 0 mls/hr UD IV 10/28/24 17:45 Sodium Chloride (Saline Lock Ns) 10 ml Q8HR IV 10/28/24 22:00 10/29/24 07:37 Hydromorphone HCl (Dilaudid Injection) 0.5 mg Q4HP PRN IV SEVERE PAIN (7-10 PAIN SCALE) 10/28/24 17:45 Ondansetron HCl (Zofran) 4 mg Q4HP PRN IV NAUSEA / VOMITING 10/28/24 17:45 Piperacillin Sod/ Tazobactam Sod 100 ml @ 25 mls/hr Q12H IV 10/29/24 06:00 10/29/24 05:37 Pantoprazole Sodium (Protonix) 40 mg DAILY IV 10/29/24 10:00 10/29/24 07:37 Heparin Sodium/ Dextrose 250 ml @ 15 mls/hr [id number] IV 10/28/24 23:30 10/29/24 06:27 DC 10/28/24 23:27 Heparin Sodium/ Dextrose 250 ml @ 12 mls/hr [id number] IV 10/29/24 07:00 10/29/24 07:16 Review of Systems Constitutional: No symptom reported Ears, Nose, & Throat: No symptom reported Eyes: No symptom reported Neurological: No symptoms reported Pulmonary/Respiratory: Cardiopulmonary arrest Cardiovascular: Cardiopulmonary arrest Gastrointestinal: No symptom reported Genitourinary: No symptom reported Musculoskeletal: No symptom reported Skin: No symptom reported Psychiatric: No symptom reported Endocrine: No symptom reported Hematologic/Lymphatic: No symptom reported Vital Signs Vital Signs Date Time Temp Pulse Resp B/P (MAP) Pulse Ox O2 Delivery O2 Flow Rate FiO2 10/29/24 09:00 99.7 59 24 129/80 (96) 96 99.7 10/29/24 08:02 30 10/29/24 08:01 Mechanical Ventilator+ Physical Exam General Appearance: Calm, relaxed. Pulmonary/Respiratory: Clear, bilateral breaths sounds. Mechanically ventilated Cardiovascular/Chest: Regular rate and rhythm. Peripheral Pulses: 2+ Radial (R). 2+ Radial (L). Abdominal Exam: Normal bowel sounds. Ankle Exam: Negative ankle edema Lower extremities: Negative lower extremity edema Neuro/Mental Status: Chemically sedated Thoughts/Psych: Deferred Appearance: No acute distress. Skin Exam: Normal inspection. Normal color. Warm and dry. Right [id number] amputation Labs/Diagnostic Data Labs Test 10/29/24 06:13 10/29/24 04:43 10/28/24 21:35 10/28/24 19:30 Range/Units Blood Gas Specimen Type Arterial Blood Gas Sample Site Left radial Blood Gas Patient Temperature 37.0 Arterial Blood Date Drawn [id number] Arterial Blood pH 7.372 7.350-7.450 Arterial Blood Partial Pressure CO2 30.6 L 35.0-48.0 mmHg Arterial Blood Partial Pressure O2 74.5 L 83.0-108.0 mmHg Arterial Blood HCO3 17.4 L 21.0-28.0 mmol/L Arterial Blood Oxygen Saturation 92.6 L 94.0-98.0 % Arterial Blood Base Excess -6.8 L -2.0-3.0 mmol/L Arterial Blood Oxyhemoglobin 91.2 L 94.0-98.0 % Arterial Blood Carboxyhemoglobin 1.0 0.5-1.5 % Arterial Blood Methemoglobin 0.5 0.0-1.5 % Cristhian Test Modified Blood Gas Total Hemoglobin 11.10 L 13.5-17.5 g/dL Blood Gas Set Respiration Rate 24.0 Blood Gas Modality Vent - ac Blood Gas Spontaneous Rate 24 FiO2 % 30.0 Blood Gas Tidal Volume 500.0 Blood Gas PEEP or CPAP 5.0 White Blood Count 19.9 H 4.4-10.8 10^3/uL Red Blood Count 4.69 4.5-5.90 10^6/uL Hemoglobin 10.5 L 13.5-17.5 g/dL Hematocrit 34.2 L 41.0-53.0 % Mean Corpuscular Volume 73.0 L 80.0-100.0 fL Mean Corpuscular Hemoglobin 22.4 L 28.0-32.0 pg Mean Corpuscular Hemoglobin Concent 30.6 L 32.0-36.0 g/dL Red Cell Distribution Width 18.8 H 11.8-14.3 % Platelet Count 138 L 140-450 10^3/uL Mean Platelet Volume 8.1 6.9-10.8 fL Neutrophils (%) (Auto) 90.6 H 37.0-80.0 % Lymphocytes (%) (Auto) 3.6 L 10.0-50.0 % Monocytes (%) (Auto) 5.5 0.0-12.0 % Eosinophils (%) (Auto) 0.1 0.0-7.0 % Basophils (%) (Auto) 0.2 0.0-2.0 % Neutrophils # (Auto) 18.0 H 1.6-8.6 10 ^3/uL Lymphocytes # (Auto) 0.7 0.4-5.4 10 ^3/uL Monocytes # (Auto) 1.1 0-1.3 10 ^3/uL Eosinophils # (Auto) 0 0-0.8 10 ^3/uL Basophils # (Auto) 0 0-0.2 10 ^3/uL Nucleated Red Blood Cells 0.1 % Prothrombin Time 17.2 H 9.3-11.8 sec Prothrombin Time INR 1.71 H 0.9-1.15 Activated Partial Thromboplast Time 114.2 *H 24.5-34.5 SEC Sodium Level 136 136-145 mmol/L Potassium Level 4.7 3.5-5.1 mmol/L Chloride Level 105 98-107 mmol/L Carbon Dioxide Level 19 L 20-31 mmol/L Anion Gap 12 5-15 Blood Urea Nitrogen 61 H 9-23 mg/dL Creatinine 5.14 H 0.700-1.30 mg/dL Glomerular Filtration Rate Calc 11 >90 mL/min BUN/Creatinine Ratio 11.9 10.0-20.0 Serum Glucose 98 74-106 mg/dL Calcium Level 6.5 L 8.7-10.4 mg/dL Total Bilirubin 0.5 0.2-1.0 mg/dL Aspartate Amino Transferase (AST) 1267 H 13-40 U/L Alanine Aminotransferase (ALT) 1762 H 7-40 U/L Alkaline Phosphatase 64 46-116 U/L Total Protein 4.9 L 5.7-8.2 g/dL Albumin 3.0 L 3.2-4.8 g/dL Random Vancomycin Level 20.3 H 5-10 ug/mL Troponin I High Sensitivity 408 *H </=54 ng/L D-Dimer, Quantitative 9.19 H 0.0-0.49 mg/L FEU Test 10/28/24 17:32 10/28/24 17:10 10/28/24 13:48 10/28/24 13:46 Range/Units Lactic Acid Level 2.6 *H 0.4-2.0 mmol/L Direct Bilirubin 0.3 <0.3 mg/dL POC Glucose 140 H 70-106 mg/dl Blood Gas Critical Value Read Back Yes Blood Gas Notified Whom Blood Gas Notified Time [id number] Blood Gas Notified By Nakita ernandez rt B-Type Natriuretic Peptide 661.66 0-100 pg/mL Test 10/28/24 12:10 10/28/24 12:00 Range/Units Phosphorus Level 11.7 H 2.4-5.1 mg/dL Magnesium Level 1.9 1.6-2.6 mg/dL Lipase 155 H 12-53 U/L Differential Total Cells Counted 100.0 100 Neutrophils % (Manual) 78 37.0-80.0 Band Neutrophils % (Manual) 7 Lymphocytes % (Manual) 10 10.0-50.0 Monocytes % (Manual) 5 0-12 Eosinophils % (Manual) 0 0-7 Basophils % (Manual) 0 0.0-2.0 Metamyelocytes % (manual) 0 Myelocytes % (Manual) 0 Promyelocytes % (Manual) 0 Blast Cells % (Manual) 0 Reactive Lymphocytes 0 Platelet Estimate Adequate Hypochromasia (manual) Moderate Assessment Cardiopulmonary arrest status post CPR and return of spontaneous circulation NSTEMI, likely type 1 Shock, possibly mixed cardiogenic and septic Rule out structural heart disease History myocardial infarction History of coronary artery disease not amenable to catheter based intervention Acute kidney injury Shock liver Heavy tobacco use Plan/Recommendation We will continue following plan/recommendations (Dr. Landeros): * Transthoracic echocardiogram to evaluate cardiac function * Heparin drip per ACS protocol * Eventual coronary angiogram * Vasopressors for hemodynamic support * Close Cardiac surveillance; notify cardiology team immediately for any ECG changes Case discussed with . NSTEMI, likely type 1. Estimated downtime approximately 20 minutes before ROSC achieved. During physical assessment, pat ient is pupils are pinpoint and nonreactive. The patient would benefit from a coronary angiogram with left heart catheterization with proven intact neurological function. Consider Neurology consult. Thank you for allowing us to care for this patient. Please call with any questions or concerns. Critical care time spent: 44 minutes This medical document was created using an electronic medical record system with voice recognition software and computerized dictation system. Although this document has been carefully reviewed, there might still be some phonetic and typographical errors. Occasional wrong-word or ``sound-alike substitutions may have occurred due to the inherent limitations of voice recognition software. These areas are purely typographical due to imperfections of the software programs and do not reflect any compromise in the patient's medical care. Ple ase read the chart carefully and recognize, using context, where these substitutions have occurred. Plan discussed with: Spouse NYHA Physical activity limitations: NA Date of Service: Oct 29, 2024 Billing Provider: ROGER PENA Cardiology Common Codes: [id number] INP/OBS CARE (High) Cardiology Consultation Codes: [id number] CONSULT <45MIN ROGER PENA Oct 29, 2024 09:26
[2024-10-29] MEDS: SODIUM CHLORIDE 0.9% 1,000 ML IV ONE (10:45)
[2024-10-29] MEDS: MAGNESIUM SULFATE 1GM/100ML 100 ML IV ONE ×3 (10:45→21:45)
[2024-10-29 11:14] LABS: Chloride 103 mmol/L (98-107); Potassium 4.4 mmol/L (3.5-5.1); Sodium 137 mmol/L (136-145)
[2024-10-29 11:15] LABS: Anion Gap 14 (5-15); Calcium 6.7 mg/dL (8.7-10.4); Carbon Dioxide 20 mmol/L (20-31)
[2024-10-29 11:20] LABS: BUN/Creatinine Ratio 11.8 (10.0-20.0); Glucose 93 mg/dL (74-106)
[2024-10-29 11:21] LABS: Blood Urea Nitrogen 68 mg/dL (9-23)
--- NOTE | 2024-10-29 11:26 | DVHPNRES ---
Progress Note Date Seen: Oct 29, 2024 Resident Creating Document: BLANCA FRIEDMAN RESIDENT Medical Necessity Reason Pt with a Central, PICC or Fol: Yes The following are medically ne: Central Line, Carrasco Catheter Subjective Review of Systems Patient is a 74-year-old male hyperlipidemia, 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 As per the patient was going out in his car and when the stopped to give him a message, he rolled down the window and when she started speaking to him she noticed that he was staring blankly and was not responding. Emergency services were called and CPR was initiated. Patient was defibrillated 4 times as per the . According to the report from the emergency physician bystander CPR was commenced for a total of 5 minutes still EMS arrived on the scene and patient was down for approximately 20 minutes before achieving ROSC in the field. Patient was given 3 rounds of epinephrine, 1 sodium bicarb, 1 calcium. Prior to the event patient was apparently normal, no recent surgery, no history of immobilization, no recent cancer diagnosis and the did not report of patient complaining of any chest pain, shortness of breath, fever, cough, abdominal pain, dysuria. She reported that yesterday patient did say he was not feeling well and was feeling achy. On arrival to the ED patient was bradycardic with the ECG showing sinus bradycardia, T-wave inversions in the lead V3-V4 and troponin levels were elevated. He had low blood pressure and was started on vasopressors with norepinephrine and dopamine. 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 Peripheral artery disease Surgical history: Right below-knee amputation, multiple surgeries for left knee replacement Social history: Patient is a long-term smoker with a 50 pack year smoking history, no alcohol or any other drug usage reported Home medications: Albuterol, testosterone, carvedilol 12.5 b.i.d., Protonix, aspirin Review of systems Patient seen and examined at the bedside. Currently sedated and on mechanical ventilation Patient had urine output of about a 150-175 mL till the afternoon, 1 L of fluid was given in the end the patient was put on 75 mL per hour of maintenance fluid Patient's heart rate was stable and dopamine drip was discontinued, continue on norepinephrine drip. Cardiology were consulted Objective vital signs Vital Sign Date Time Temp Pulse Resp B/P (MAP) Pulse Ox O2 Delivery O2 Flow Rate FiO2 10/29/24 10:30 99.7 70 22 96/63 (74) 94 99.7 10/29/24 09:56 30 10/29/24 08:01 Mechanical Ventilator+ Total Intake and Output 10/28/24 10/28/24 10/29/24 15:00 23:00 07:00 Intake Total 125.375 ml 624.875 ml 1044.325 ml Output Total 80 ml Balance 125.375 ml 624.875 ml 964.325 ml medications Current Medications Medications Dose Ordered Sig/Sarita Route Start Time Stop Time Status Last Admin Dose Admin Vasopressin 20 units/Sodium Chloride 100 ml @ 9 mls/hr [id number] IV 10/28/24 13:15 Midazolam HCl 50 ml @ 1 mls/hr Q24H IV 10/28/24 14:45 10/29/24 04:21 5 MLS/HR Norepinephrine Bitartrate 250 ml @ 3.75 mls/hr Q24H IV 10/28/24 15:00 10/28/24 12:00 37.5 MLS/HR Vancomycin HCl 0 ml @ 0 mls/hr UD IV 10/28/24 17:45 Sodium Chloride 10 ml Q8HR IV 10/28/24 22:00 10/29/24 07:37 10 ML Piperacillin Sod/ Tazobactam Sod 100 ml @ 25 mls/hr Q12H IV 10/29/24 06:00 10/29/24 05:37 25 MLS/HR Pantoprazole Sodium 40 mg DAILY IV 10/29/24 10:00 10/29/24 07:37 40 MG Heparin Sodium/ Dextrose 250 ml @ 12 mls/hr [id number] IV 10/29/24 07:00 10/29/24 07:16 12 MLS/HR Examination Gen - no pallor, no icterus, no cyanosis, no clubbing, no LAD, no edema . Skin - Patients skin is warm and dry. HEENT - normocephalic, atraumatic, moist mucous membranes. Neck - full ROM, no LAD, no JVD Pulmonary - B/L equal breath sounds with mild rales, no wheezing, no stridor. cardiovascular - regular S1,S2 heard, no added sounds, no murmurs heard. peripheral pulses normal radial 2+, poor pedal pulses in the left side. capillary refill normal <2 secs in upper extremities GI - soft, abdomen. Bowel sounds normoactive Neurological - patient is sedated and on mechanical ventilation with a RASS of - 4 laboratory and microbiology Laboratory Tests 10/29/24 10:15 10/29/24 04:43 Test 10/29/24 10:15 Range/Units Serum Glucose Pending Labs and/or images reviewed: Labs reviewed by me Problem List/Assessment/Plan Problem List/Assessment/Plan Neurology Acute metabolic encephalopathy s/p cardiopulmonary arrest - head CT shows no acute intracranial abnormality, mild right ethmoid and sphenoid sinus disease - patient has a good gag reflex and grimaces on painful physical stimulation Cardiovascular S/p cardiopulmonary arrest with ROSC Cardiogenic shock NSTEMI likely type 1 H/o coronary artery disease without any intervention Sinus bradycardia, resolving Probable underlying heart failure, systolic versus diastolic - initial ECG showed sinus bradycardia with a PVCs and T-wave inversions in lead V3 V4, troponins elevated - on norepinephrine - discontinuing dopamine - judicious fluid use - on heparin drip as per ACS protocol Respiratory Status post cardiopulmonary arrest on mechanical ventilation pulmonary vascular congestion likely due to cardiogenic shock Probable COPD - chest x-ray shows mild cephalization of pulmonary vessels - judicious fluids - FiO2 30%, peep of 5, Nephrology/metabolic WILMER on CKD likely due to acute tubular necrosis from shock Probable underlying CKD Anion gap metabolic acidosis is likely from lactic acidosis from shock - low urine output - given IV fluids, 75 mL/hour - monitor input output - monitor kidney function - lactic acid improving, acidosis resolved GI Shock liver Possible infectious/inflammatory colitis Possible cholecystitis Mild colonic diverticulosis - transaminases trending down - abdominal ultrasound showed distended gallbladder with wall thickening and edema, mild dilatation of the CBD, increased echogenicity of bilateral kidneys - CT abdomen pelvis without contrast showed mild wall thickening throughout the large bowel, bladder wall thickening, distended gallbladder Infectious disease Sepsis possible from cholecystitis/UTI/knee wound/pneumonia - on broad-spectrum antibiotic coverage with vancomycin and Zosyn - wound cultures, urine cultures, blood cultures, sputum cultures pending Hematology Microcytic hypochromic anemia likely from iron-deficiency Possible anemia from CKD - monitor H&H DVT prophylaxis: On heparin drip PUD prophylaxis: On Protonix Right IJV CVC inserted on 10/28 Intubated on 10/28 Carrasco's catheter on 10/28 Goals of care discussed with the for over 25 minutes. All questions and concerns were answered and was explained about the critical condition of the patient Code status: Full code Critical care time spent excluding procedures: 87 minutes Plan discussed with Dr. Nascimento Plan discussed with: Spouse, Other (RN Ciara) My Orders My Orders Orders - BLANCA FRIEDMAN Procedure Category Date Status Time Ventilator Orders RT 10/29/24 Transmitted 09:56 Abg W/ Co-Ox RT 10/29/24 Logged 13:00 Magnesium LAB 10/29/24 In Process 10:36 Lipid Panel LAB 10/29/24 In Process 10:36 Urine Sodium LAB 10/29/24 Logged 10:36 Urine LAB 10/29/24 Logged Protein/Creatinine Sodium Chloride 0.9% PHA 10/29/24 Logged 10:45 Urine Bacterial PARTHA 10/29/24 Uncollected Culture 10:36 Magnesium Sulfate PHA 10/29/24 Logged 1gm/100ml 10:45 Date of Service: Oct 29, 2024 Billing Provider: JOSE A NASCIMENTO MD Common Visit Codes: 93390-[id number] CARE 30-74 MIN, [id number] CARE-EACH +30MIN BLANCA FRIEDMAN Oct 29, 2024 11:26 JOSE A NASCIMENTO MD Oct 31, 2024 12:29
[2024-10-29 11:30] LABS: Triglycerides 88.0 mg/dL (< 150)
[2024-10-29 11:31] LABS: Magnesium 1.5 mg/dL (1.6-2.6)
[2024-10-29 11:32] LABS: Cholesterol 78.0 mg/dL (< 200); HDL Cholesterol 23.0 mg/dL (40-59)
[2024-10-29 12:18] LABS: Protein, Urine 91.5 mg/dL (1-14)
[2024-10-29 13:48] LABS: INR 1.54 (0.9-1.15); Partial Thromboplastin Time 38.9 SEC (24.5-34.5); Prothrombin Time 15.6 sec (9.3-11.8)
[2024-10-29] MEDS: DOPamine 1600MCG/ML D5W 250 ML IV SCH (14:00)
[2024-10-29] MEDS: SODIUM CHLORIDE 0.9% 1,000 ML IV SCH (14:00)
--- NOTE | 2024-10-29 14:16 | DVH ---
INDICATION: resp failure TECHNIQUE: Single frontal view of the chest was obtained COMPARISON: XY CHEST PORTABLE on DOS: 10/28/24, XY CHEST PORTABLE on DOS: 10/28/24 FINDINGS: Lines and Tubes: Endotracheal tube, enteric catheter and right central venous catheter in satisfactor y position. Lungs: Clear Pleura: No effusion. No pneumothorax. Cardiomediastinal contours: Unremarkable Bones: Unremarkable IMPRESSION: No interval change.
[2024-10-29 14:39] LABS: Base Excess -7.4 mmol/L (-2.0-3.0)
--- NOTE | 2024-10-29 14:41 | CONS ---
Pharmacy Clinical Information: 10/29/24 @ 1310 aPTT: 38.9 Current rate: 1200 units/hr No bolus Increase rate 200 units/hr @ 1310 New rate: 1400 units/hr Next aPTT order @ 1900 INDIRA Bustillos [facility] Oct 29, 2024 14:41
--- NOTE | 2024-10-29 15:39 | DVHINCON2 ---
Date of service: Oct 29, 2024 Referring Physician Reason for Consultation WILMER History of Present Illness 74 years old male with past medical history of coronary artery disease, hypertension, right below-knee amputation, back surgery with implant, presented with chief complaints of altered mental status and having cardiac arrest inpatients driveway suddenly when he was about to start driving out of home, HPI obtained from who is bedside approximately 25 minutes CPR was done Currently patient intubated and sedated on multiple vasopressors has Carrasco catheter Patient's denies having Chronic kidney disease Past Medical History per hpi Past Surgical History per hpi Allergies: Coded Allergies: UNOBTAINABLE (Unverified , 10/28/24) Current Medications Current Medications Medications (Trade) Dose Ordered Sig/Sarita Route PRN Reason Start Time Stop Time Status Last Admin Vancomycin HCl 0 ml @ 0 mls/hr UD IV 10/28/24 17:45 Sodium Chloride (Saline Lock Ns) 10 ml Q8HR IV 10/28/24 22:00 10/29/24 07:37 Hydromorphone HCl (Dilaudid Injection) 0.5 mg Q4HP PRN IV SEVERE PAIN (7-10 PAIN SCALE) 10/28/24 17:45 10/29/24 11:03 DC Ondansetron HCl (Zofran) 4 mg Q4HP PRN IV NAUSEA / VOMITING 10/28/24 17:45 10/29/24 11:03 DC Piperacillin Sod/ Tazobactam Sod 100 ml @ 25 mls/hr Q12H IV 10/29/24 06:00 10/29/24 05:37 Pantoprazole Sodium (Protonix) 40 mg DAILY IV 10/29/24 10:00 10/29/24 07:37 Heparin Sodium/ Dextrose 250 ml @ 15 mls/hr [id number] IV 10/28/24 23:30 10/29/24 06:27 DC 10/28/24 23:27 Heparin Sodium/ Dextrose 250 ml @ 14 mls/hr [id number] IV 10/29/24 07:00 10/29/24 07:16 Sodium Chloride 1,000 ml @ 75 mls/hr [id number] IV 10/29/24 13:00 UNV Dopamine HCl/ Dextrose 250 ml @ 15.375 mls/ hr [id number] IV 10/29/24 13:15 UNV Review of Systems Patient intubated H&P Exam Vital Signs/I&O Vital Sign Date Time Temp Pulse Resp B/P (MAP) Pulse Ox O2 Delivery O2 Flow Rate FiO2 10/29/24 15:00 98.6 64 22 109/71 (84) 95 98.6 10/29/24 14:11 30 10/29/24 08:01 Mechanical Ventilator+ Intake and Output 10/28/24 10/29/24 19:00 07:00 Intake Total 262.750 ml 1531.825 ml Output Total 80 ml Balance 262.750 ml 1451.825 ml Intake Oral 0 ml IV Total 262.750 ml 1531.825 ml Output Urine Total 80 ml Physical Exam General-intubated and sedated HEENT-normocephalic, , no pallor, neck supple Respiratory-fair air entry bilateral, [id number] heard, no murmurs appreciated Abdominal-soft, nontender, nondistended Musculoskeletal-right BKA Labs/Diagnostic Data Labs/Diagnostic Data Laboratory Tests Test 10/29/24 14:30 10/29/24 13:10 10/29/24 11:30 10/29/24 10:15 Range/Units Blood Gas Specimen Type Arterial Blood Gas Sample Site Left radial Blood Gas Patient Temperature 37.0 Arterial Blood Date Drawn [id number] Arterial Blood pH 7.294 L 7.350-7.450 Arterial Blood Partial Pressure CO2 39.0 35.0-48.0 mmHg Arterial Blood Partial Pressure O2 79.5 L 83.0-108.0 mmHg Arterial Blood HCO3 18.5 L 21.0-28.0 mmol/L Arterial Blood Oxygen Saturation 92.5 L 94.0-98.0 % Arterial Blood Base Excess -7.4 L -2.0-3.0 mmol/L Arterial Blood Oxyhemoglobin 91.3 L 94.0-98.0 % Arterial Blood Carboxyhemoglobin 0.6 0.5-1.5 % Arterial Blood Methemoglobin 0.7 0.0-1.5 % Cristhian Test Modified Blood Gas Total Hemoglobin 10.50 L 13.5-17.5 g/dL Blood Gas Set Respiration Rate 22.0 Blood Gas Modality Vent - ac Blood Gas Spontaneous Rate 22 FiO2 % 30.0 Blood Gas Tidal Volume 450.0 Blood Gas PEEP or CPAP 5.0 Prothrombin Time 15.6 H 9.3-11.8 sec Prothrombin Time INR 1.54 H 0.9-1.15 Activated Partial Thromboplast Time 38.9 H 24.5-34.5 SEC Urine Creatinine 55.93 30.0-125.0 mg/dL Urine Protein/Creatinine Ratio 1.64 Urine Sodium 51 40-220 mmol/L Urine Total Protein 91.5 H 1-14 mg/dL Sodium Level 137 136-145 mmol/L Potassium Level 4.4 3.5-5.1 mmol/L Chloride Level 103 98-107 mmol/L Carbon Dioxide Level 20 20-31 mmol/L Anion Gap 14 5-15 Blood Urea Nitrogen 68 H 9-23 mg/dL Creatinine 5.76 H 0.700-1.30 mg/dL Glomerular Filtration Rate Calc 10 >90 mL/min BUN/Creatinine Ratio 11.8 10.0-20.0 Serum Glucose 93 74-106 mg/dL Calcium Level 6.7 L 8.7-10.4 mg/dL Test 10/29/24 06:13 10/29/24 04:43 10/28/24 22:30 10/28/24 21:35 Range/Units Blood Gas Specimen Type Arterial Blood Gas Sample Site Left radial Blood Gas Patient Temperature 37.0 Arterial Blood Date Drawn [id number] Arterial Blood pH 7.372 7.350-7.450 Arterial Blood Partial Pressure CO2 30.6 L 35.0-48.0 mmHg Arterial Blood Partial Pressure O2 74.5 L 83.0-108.0 mmHg Arterial Blood HCO3 17.4 L 21.0-28.0 mmol/L Arterial Blood Oxygen Saturation 92.6 L 94.0-98.0 % Arterial Blood Base Excess -6.8 L -2.0-3.0 mmol/L Arterial Blood Oxyhemoglobin 91.2 L 94.0-98.0 % Arterial Blood Carboxyhemoglobin 1.0 0.5-1.5 % Arterial Blood Methemoglobin 0.5 0.0-1.5 % Cristhian Test Modified Blood Gas Total Hemoglobin 11.10 L 13.5-17.5 g/dL Blood Gas Set Respiration Rate 24.0 Blood Gas Modality Vent - ac Blood Gas Spontaneous Rate 24 FiO2 % 30.0 Blood Gas Tidal Volume 500.0 Blood Gas PEEP or CPAP 5.0 White Blood Count 19.9 H 19.5 H 4.4-10.8 10^3/uL Red Blood Count 4.69 4.61 4.5-5.90 10^6/uL Hemoglobin 10.5 L 10.3 L 13.5-17.5 g/dL Hematocrit 34.2 L 33.7 #L 41.0-53.0 % Mean Corpuscular Volume 73.0 L 73.0 #L 80.0-100.0 fL Mean Corpuscular Hemoglobin 22.4 L 22.3 L 28.0-32.0 pg Mean Corpuscular Hemoglobin Concent 30.6 L 30.5 L 32.0-36.0 g/dL Red Cell Distribution Width 18.8 H 18.8 H 11.8-14.3 % Platelet Count 138 L 141 140-450 10^3/uL Mean Platelet Volume 8.1 8.0 6.9-10.8 fL Neutrophils (%) (Auto) 90.6 H 90.9 H 37.0-80.0 % Lymphocytes (%) (Auto) 3.6 L 4.0 L 10.0-50.0 % Monocytes (%) (Auto) 5.5 4.8 0.0-12.0 % Eosinophils (%) (Auto) 0.1 0.0 0.0-7.0 % Basophils (%) (Auto) 0.2 0.3 0.0-2.0 % Neutrophils # (Auto) 18.0 H 17.7 H 1.6-8.6 10 ^3/uL Lymphocytes # (Auto) 0.7 0.8 0.4-5.4 10 ^3/uL Monocytes # (Auto) 1.1 0.9 0-1.3 10 ^3/uL Eosinophils # (Auto) 0 0 0-0.8 10 ^3/uL Basophils # (Auto) 0 0 0-0.2 10 ^3/uL Nucleated Red Blood Cells 0.1 0.0 % Prothrombin Time 17.2 H 18.2 H 9.3-11.8 sec Prothrombin Time INR 1.71 H 1.82 H 0.9-1.15 Activated Partial Thromboplast Time 114.2 *H 30.8 24.5-34.5 SEC Sodium Level 136 137 136-145 mmol/L Potassium Level 4.7 5.0 3.5-5.1 mmol/L Chloride Level 105 104 98-107 mmol/L Carbon Dioxide Level 19 L 21 20-31 mmol/L Anion Gap 12 12 5-15 Blood Urea Nitrogen 61 H 59 H 9-23 mg/dL Creatinine 5.14 H 5.09 H 0.700-1.30 mg/dL Glomerular Filtration Rate Calc 11 11 >90 mL/min BUN/Creatinine Ratio 11.9 11.6 10.0-20.0 Serum Glucose 98 106 74-106 mg/dL Calcium Level 6.5 L 7.3 L 8.7-10.4 mg/dL Magnesium Level 1.5 L 1.6-2.6 mg/dL Total Bilirubin 0.5 0.2-1.0 mg/dL Aspartate Amino Transferase (AST) 1267 H 13-40 U/L Alanine Aminotransferase (ALT) 1762 H 7-40 U/L Alkaline Phosphatase 64 46-116 U/L Total Protein 4.9 L 5.7-8.2 g/dL Albumin 3.0 L 3.2-4.8 g/dL Triglycerides Level 88 < 150 mg/dL Cholesterol Level 78 < 200 mg/dL LDL Cholesterol 43 < 100 mg/dL HDL Cholesterol 23 L 40-59 mg/dL Random Vancomycin Level 20.3 H 5-10 ug/mL Troponin I High Sensitivity 408 *H </=54 ng/L Test 10/28/24 19:30 10/28/24 17:32 10/28/24 17:10 10/28/24 15:54 Range/Units Prothrombin Time 17.5 H 9.3-11.8 sec Prothrombin Time INR 1.74 H 0.9-1.15 D-Dimer, Quantitative 9.19 H 0.0-0.49 mg/L FEU Troponin I High Sensitivity 369 *H 337 *H 238 *H </=54 ng/L Sodium Level 137 136-145 mmol/L Potassium Level 4.9 # 3.5-5.1 mmol/L Chloride Level 105 98-107 mmol/L Carbon Dioxide Level 23 20-31 mmol/L Anion Gap 9 5-15 Blood Urea Nitrogen 61 #H 9-23 mg/dL Creatinine 4.93 H 0.700-1.30 mg/dL Glomerular Filtration Rate Calc 12 >90 mL/min BUN/Creatinine Ratio 12.4 10.0-20.0 Serum Glucose 127 H 74-106 mg/dL Lactic Acid Level 2.6 *H 0.4-2.0 mmol/L Calcium Level 7.3 L 8.7-10.4 mg/dL Total Bilirubin 0.6 0.2-1.0 mg/dL Direct Bilirubin 0.3 <0.3 mg/dL Aspartate Amino Transferase (AST) 2163 H 13-40 U/L Alanine Aminotransferase (ALT) 2140 H 7-40 U/L Alkaline Phosphatase 68 46-116 U/L Total Protein 4.9 L 5.7-8.2 g/dL Albumin 3.3 3.2-4.8 g/dL POC Glucose 140 H 70-106 mg/dl Test 10/28/24 15:02 10/28/24 14:54 10/28/24 13:48 10/28/24 13:46 Range/Units POC Glucose 114 H 70-106 mg/dl Sodium Level 135 L 136-145 mmol/L Potassium Level 7.4 *H 3.5-5.1 mmol/L Chloride Level 103 98-107 mmol/L Carbon Dioxide Level 17 L 20-31 mmol/L Anion Gap 15 5-15 Blood Urea Nitrogen 50 H 9-23 mg/dL Creatinine 4.83 H 0.700-1.30 mg/dL Glomerular Filtration Rate Calc 12 >90 mL/min BUN/Creatinine Ratio 10.4 10.0-20.0 Serum Glucose 117 H 74-106 mg/dL Calcium Level 7.7 L 8.7-10.4 mg/dL Total Bilirubin 0.5 0.2-1.0 mg/dL Aspartate Amino Transferase (AST) 2686 H 13-40 U/L Alanine Aminotransferase (ALT) 2252 H 7-40 U/L Alkaline Phosphatase 71 46-116 U/L Total Protein 5.2 L 5.7-8.2 g/dL Albumin 3.4 3.2-4.8 g/dL Blood Gas Specimen Type Arterial Blood Gas Sample Site Left radial Blood Gas Patient Temperature 37.0 Arterial Blood Date Drawn [id number] Arterial Blood pH 7.214 *L 7.350-7.450 Arterial Blood Partial Pressure CO2 42.1 35.0-48.0 mmHg Arterial Blood Partial Pressure O2 517.9 *H 83.0-108.0 mmHg Arterial Blood HCO3 16.6 L 21.0-28.0 mmol/L Arterial Blood Oxygen Saturation 99.9 H 94.0-98.0 % Arterial Blood Base Excess -10.6 L -2.0-3.0 mmol/L Arterial Blood Oxyhemoglobin 98.3 H 94.0-98.0 % Arterial Blood Carboxyhemoglobin 1.1 0.5-1.5 % Arterial Blood Methemoglobin 0.5 0.0-1.5 % Cristhian Test Modified Blood Gas Total Hemoglobin 11.30 L 13.5-17.5 g/dL Blood Gas Set Respiration Rate 24.0 Blood Gas Modality Vent - ac Blood Gas Spontaneous Rate 24 FiO2 % 100.0 Blood Gas Tidal Volume 500.0 Blood Gas PEEP or CPAP 5.0 Blood Gas Critical Value Read Back Yes Blood Gas Notified Whom Blood Gas Notified Time [id number] Blood Gas Notified By Nakita yang Lactic Acid Level 4.9 *H 0.4-2.0 mmol/L Troponin I High Sensitivity 298 *H </=54 ng/L B-Type Natriuretic Peptide 661.66 0-100 pg/mL Test 10/28/24 12:10 10/28/24 12:00 Range/Units Sodium Level 136 136-145 mmol/L Potassium Level 6.0 *H 3.5-5.1 mmol/L Chloride Level 104 98-107 mmol/L Carbon Dioxide Level 15 L 20-31 mmol/L Anion Gap 17 H 5-15 Blood Urea Nitrogen 55 H 9-23 mg/dL Creatinine 4.69 H 0.700-1.30 mg/dL Glomerular Filtration Rate Calc 13 >90 mL/min BUN/Creatinine Ratio 11.7 10.0-20.0 Serum Glucose 136 H 74-106 mg/dL Calcium Level 8.0 L 8.7-10.4 mg/dL Phosphorus Level 11.7 H 2.4-5.1 mg/dL Magnesium Level 1.9 1.6-2.6 mg/dL Total Bilirubin 0.4 0.2-1.0 mg/dL Aspartate Amino Transferase (AST) 2766 H 13-40 U/L Alanine Aminotransferase (ALT) 2388 H 7-40 U/L Alkaline Phosphatase 72 46-116 U/L Total Protein 5.3 L 5.7-8.2 g/dL Albumin 3.5 3.2-4.8 g/dL Lipase 155 H 12-53 U/L White Blood Count 21.2 H 4.4-10.8 10^3/uL Red Blood Count 4.82 4.5-5.90 10^6/uL Hemoglobin 10.8 L 13.5-17.5 g/dL Hematocrit 39.2 L 41.0-53.0 % Mean Corpuscular Volume 81.2 80.0-100.0 fL Mean Corpuscular Hemoglobin 22.3 L 28.0-32.0 pg Mean Corpuscular Hemoglobin Concent 27.5 L 32.0-36.0 g/dL Red Cell Distribution Width 19.0 H 11.8-14.3 % Platelet Count 183 140-450 10^3/uL Mean Platelet Volume 8.5 6.9-10.8 fL Neutrophils (%) (Auto) 37.0-80.0 % Lymphocytes (%) (Auto) 10.0-50.0 % Monocytes (%) (Auto) 0.0-12.0 % Basophils (%) (Auto) 0.0-2.0 % Neutrophils # (Auto) 1.6-8.6 10 ^3/uL Lymphocytes # (Auto) 0.4-5.4 10 ^3/uL Monocytes # (Auto) 0-1.3 10 ^3/uL Differential Total Cells Counted 100.0 100 Neutrophils % (Manual) 78 37.0-80.0 Band Neutrophils % (Manual) 7 Lymphocytes % (Manual) 10 10.0-50.0 Monocytes % (Manual) 5 0-12 Eosinophils % (Manual) 0 0-7 Basophils % (Manual) 0 0.0-2.0 Metamyelocytes % (manual) 0 Myelocytes % (Manual) 0 Promyelocytes % (Manual) 0 Blast Cells % (Manual) 0 Reactive Lymphocytes 0 Platelet Estimate Adequate Hypochromasia (manual) Moderate Lactic Acid Level 7.7 *H 0.4-2.0 mmol/L Troponin I High Sensitivity 326 *H </=54 ng/L Assessment Acute kidney injury likely acute tubular necrosis ischemic in the setting of shock Status post cardiac arrest status post CPR/ROSC Ventilator-dependent hypoxic respiratory failure Septic shock NSTEMI CAD - Recommendations gentle ivf continue for now await echo results on pressors evaluate WET WHEELER needs daily d/w bedside ct abd noted Reviewed vital signs, lab work, imaging studies, medications, microbiology, other physician recommendations Total time spent 70 minutes More than 50% of the time spent providing direct [id number] care . Thank you for allowing me to participate in the care of your patient. Plan discussed with: Patient JESUS BOLTON MD Oct 29, 2024 15:39
--- NOTE | 2024-10-29 16:28 | DVH ---
CLINICAL HISTORY: shock TECHNIQUE: CT of the abdomen and pelvis was performed without intravenous contrast. This exam was per formed according to our departmental dose optimization program. Up-to-date CT equipment and radiation dose reduction techniques are utilized as appropriate. 16.52 CTDI: 16.52 DLP: 3.92 WID: COMPARISON: None FINDINGS: Lower Thorax: Upper limits of normal-sized heart with trace pericardial effusion. Small bilateral ple ural effusions. Hypodensity of the blood pool relative to the myocardium indicative of anemia. Mild aortic valve and coronary artery calcifications partially imaged. Mild dependent opacities in the trupti ateral lower lobes likely atelectasis. Liver and Biliary system: Dilated gallbladder measuring 5.9 cm. No biliary ductal dilatation. Grossl y unremarkable unopacified liver. Spleen: Unremarkable. Adrenal Glands and Kidneys: Normal adrenal glands. Nonobstructing calculus in the lower pole left kid yadi measuring 1 cm on series 2, image 36. No hydronephrosis in either kidney. Nonspecific bilateral perinephric stranding / edema. Pancreas and Retroperitoneum: Mild atrophy of the pancreas. No grossly enlarged retroperitoneal lymph nodes. There is mild retroperitoneal edema. Aorta and Major Vessels: Aortoiliac vessels are normal in caliber containing xies-bu-zksumdoq calcifi ed atherosclerotic plaque. Bowel, Mesentery and Peritoneal space: Normal caliber small and large bowel. There is a rectal tube in place. Mild colonic diverticulosis. Mild wall thickening throughout the large bowel which may be i n part due to underdistention. Normal appendix. Mild ascites. No free air or fluid collection. Mesent silvia venous congestion. Pelvis: There is a Carrasco catheter in the urinary bladder. Mild bladder wall thickening. Nondependen t gas in the urinary bladder likely related to instrumentation. No pelvic lymphadenopathy. Abdominal wall and Osseous Structures: Mild body wall edema. Multilevel lower thoracic and lumbar spo ndylosis. Grade 1 retrolisthesis at L2-L3. Prior laminectomy at L2. Posterior spinal fixation hardwa re with bilateral rods and transpedicular screws at L2-L3. There is a battery pack in the posterior left abdominal wall and stimulator leads coursing into the spinal canal at the level of T12-L1. No de structive osseous lesion. IMPRESSION: Volume overload and/or CHF with small bilateral pleural effusions, mild ascites and mesenteric venous congestion, body wall edema. Mild wall thickening throughout the large bowel which may be in part due to underdistention versus mi ld infectious or inflammatory colitis. Bladder wall thickening, nonspecific. Correlate with urinalysis if there is clinical concern for cys titis. Dilated gallbladder measuring 5.9 cm. DDX includes fasting state or cholecystitis. Nonobstructing left lower pole renal calculus. Mild colonic diverticulosis. Anemia suggested. Correlate with CBC. Mild aortic valve and coronary artery calcifications, partially imaged.
--- NOTE | 2024-10-29 17:14 | DVHSR ---
APPROVED REPORT EXAM: Two-dimensional and M-mode echocardiogram with Doppler and color Doppler. Blood Pressure: 163/83 mmHg INDICATION Cardiac Arrest RISK FACTORS Height: 5' 10", Weight: 180 DIMENSIONS LVDd4.8 (3.8-5.7cm)LA (2D)4.6 (1.9-4.0cm)Aortic Root3.5 (2.0-3.7cm) LVDs3.6 (2.5-4.0cm)LA (MM) (1.9-4.0cm)Aortic Cusp Exc1.7 (1.5-2.0cm) EF (%) 50.0 (55-70%)Rt. Atrium4.7 (1.9-4.0cm)Asc. Aorta cm IVSd1.0 (0.7-1.1cm)RV (D) (1.8-2.4cm) PWd0.8 (0.7-1.1cm) Mitral Valve MitralMitral Stenosis E wave0.70m/sMV Mean GR.mmHg A wave0.80m/sMV Peak GR.mmHg E/A ratio0.92D MVAcm2 Aortic Valve Aortic ValveAortic Stenosis V10.90m/Anna Mean GR.5mmHg V21.40m/Anna Peak GR.8mmHg LVOT Diameter2.3 (1.8-2.4cm)Doppler AVA2.67cm2 Pulmonic Valve V20.70m/s Tricuspid Valve TR Velocity2.50m/s [id number] Other Information Quality : Technically LimitedRhythm : Technically limited study due to body habitus, patient position and patient on vent. Conclusion Sinus rhythm. Enlarged left atrium. Right atrial enlargement. Valves are normal. There was moderate aortic sclerosis with thickening and calcification of the aort ic leaflets however with good excursion. The tricuspid and pulmonic appear to be structurally normal as does the mitral. Left ventricular function is mildly impaired. EF is about 50% with impaired diastolic relaxation. T he LV is not dilated. Doppler reveals mild tricuspid regurgitation. No pericardial effusion masses or vegetations.
[2024-10-29] MEDS ORDERED: SODIUM CHLORIDE 0.9% 1,000 ML IV SCH (19:45)
[2024-10-29 20:36] LABS: INR 1.54 (0.9-1.15); Prothrombin Time 15.6 sec (9.3-11.8)
[2024-10-29 20:43] LABS: Partial Thromboplastin Time 115.1 SEC (24.5-34.5)
[2024-10-30] VITALS (108 sets, daily range): BP systolic 83–127; BP diastolic 52–76; PULSE 64–78; RESP 16–25; TEMP 53.6–99.3; O2SAT 94–100
[2024-10-30] MEDS: IPRATROPIUM BROM 0.5 MG/2.5ML INH SOL NEB SCH (01:04)
[2024-10-30] MEDS: ALBUTEROL SULF 2.5 MG/0.5ML(0.5%) NEB SOLN NEB SCH (01:04)
[2024-10-30 04:10] LABS: Hematocrit 34.4 % (41.0-53.0); Hemoglobin 10.5 g/dL (13.5-17.5); Nucleated Red Blood Cells % 0.1 %
[2024-10-30 04:12] LABS: Mean Corpuscular Hemoglobin 22.5 pg (28.0-32.0); Mean Corpuscular Volume 73.6 fL (80.0-100.0)
[2024-10-30 04:27] LABS: Alkaline Phosphatase 59 U/L (46-116); Anion Gap 14 (5-15); BUN/Creatinine Ratio 9.1 (10.0-20.0); Magnesium 2.1 mg/dL (1.6-2.6); Potassium 4.8 mmol/L (3.5-5.1); Sodium 137 mmol/L (136-145)
[2024-10-30 04:28] LABS: Bilirubin, Total 0.5 mg/dL (0.2-1.0)
[2024-10-30 04:38] LABS: Albumin 2.9 g/dL (3.2-4.8); Blood Urea Nitrogen 57 mg/dL (9-23); Calcium 6.8 mg/dL (8.7-10.4); Carbon Dioxide 15 mmol/L (20-31); Chloride 108 mmol/L (98-107); Glucose 52 mg/dL (74-106); Total Protein 4.7 g/dL (5.7-8.2)
[2024-10-30 04:46] LABS: Alanine Aminotransferase 1185 U/L (7-40)
[2024-10-30] MEDS: DEXTROSE (50%) 50ML SYRG IV ONE ×3 (05:26→22:44)
[2024-10-30 06:07] LABS: INR 1.43 (0.9-1.15); Partial Thromboplastin Time 61.4 SEC (24.5-34.5); Prothrombin Time 14.6 sec (9.3-11.8)
--- NOTE | 2024-10-30 07:43 | DVH ---
CHEST RADIOGRAPH Indication: RESP FAILURE Technique: Single frontal view of the chest was obtained Comparison: XY CHEST PORTABLE on DOS: 10/29/24 FINDINGS: Lines and Tubes: The endotracheal tube terminates 4.7 cm above the teresa. Right central venous cath eter terminates in the superior vena cava. The enteric tube courses below the left hemidiaphragm and the tip extends outside the field of view. Lungs: No focal consolidation. Pleura: No effusion. No pneumothorax. Cardiomediastinal contours: Unremarkable Bones: No acute osseous abnormality. IMPRESSION: 1. Stable position of the support lines and tubes. 2. No acute cardiopulmonary disease.
[2024-10-30 08:26] LABS: Base Excess -8.6 mmol/L (-2.0-3.0)
[2024-10-30 12:13] LABS: INR 1.42 (0.9-1.15); Partial Thromboplastin Time 51.5 SEC (24.5-34.5); Prothrombin Time 14.5 sec (9.3-11.8)
[2024-10-30] MEDS: cefTRIAXone 2GM/50ML D5W 50 ML IV ONE (13:59)
[2024-10-30] MEDS: VANCOMYCIN 500mg/100mL 100 ML IV ONE (14:00)
--- NOTE | 2024-10-30 14:00 | DVHPN2 ---
Progress Note - Dictate Date Seen: Oct 30, 2024 Medical Necessity Reason Pt with a Central, PICC or Fol: Yes The following are medically ne: Central Line, Carrasco Catheter Subjective Patient's and patient's son at bedside vital signs Vital Sign Date Time Temp Pulse Resp B/P (MAP) Pulse Ox O2 Delivery O2 Flow Rate FiO2 10/30/24 13:44 66 24 108/70 (83) 97 30 10/30/24 11:00 99.1 210.4 10/30/24 10:00 Mechanical Ventilator+ Total Intake and Output 10/29/24 10/29/24 10/30/24 14:59 22:59 06:59 Intake Total 1529.125 ml 1004.95 ml 284.0 ml Output Total 450 ml 300 ml Balance 1529.125 ml 554.95 ml -16.0 ml medications Current Medications Medications Dose Ordered Sig/Sarita Route Start Time Stop Time Status Last Admin Dose Admin Vasopressin 20 units/Sodium Chloride 100 ml @ 9 mls/hr Q11H7M IV 10/28/24 13:15 Midazolam HCl 50 ml @ 1 mls/hr Q24H IV 10/28/24 14:45 10/30/24 13:00 6 MLS/HR Norepinephrine Bitartrate 250 ml @ 3.75 mls/hr Q24H IV 10/28/24 15:00 10/30/24 05:56 3.75 MLS/HR Vancomycin HCl 0 ml @ 0 mls/hr UD IV 10/28/24 17:45 Sodium Chloride 10 ml Q8HR IV 10/28/24 22:00 10/30/24 05:26 10 ML Pantoprazole Sodium 40 mg DAILY IV 10/29/24 10:00 10/30/24 09:48 40 MG Dopamine HCl/ Dextrose 250 ml @ 15.375 mls/ hr [id number] IV 10/29/24 13:15 10/29/24 14:00 15.375 MLS/HR Heparin Sodium/ Dextrose 250 ml @ 11 mls/hr [id number] IV 10/29/24 22:00 10/29/24 22:00 11 MLS/HR Albuterol 2.5 mg Q6HR NEB 10/30/24 06:00 10/30/24 12:11 2.5 MG Ipratropium [place] 0.5 mg Q6HR NEB 10/30/24 06:00 10/30/24 12:11 0.5 MG Enteral Nutritional Formula 1,000 ml 30ML/HR GT 10/30/24 13:15 Ceftriaxone Sodium/Dextrose 50 ml @ 50 mls/hr DAILY IV 10/31/24 10:00 objective Gen: nad, intubated and sedated heent: nc/at, mmm lungs: Coarse breath sounds cvs: no rub ext: Right lower extremity amputation laboratory and microbiology Laboratory Tests 10/30/24 02:48 Test 10/30/24 02:48 Range/Units Serum Glucose 52 L 74-106 mg/dL Assessment/Plan Acute kidney injury likely acute tubular necrosis ischemic in the setting of shock Status post cardiac arrest status post CPR/ROSC Ventilator-dependent hypoxic respiratory failure Septic shock NSTEMI CAD - Recommendations - trial of loop diuretic to augment urine volumes - discussed risks, benefits of dialysis therapy for acute kidney injury. Patient's and patient's son were agreement to initiate dialysis As clinically indicated. - plan to repeat basic chemistry panels at 1800. Dietary Evaluation Review Comments: 1. consider TF Nepro @30ml/hr providing 58g Protein, 1274kcal 523ml free water, supporting 89% protein needs and 78% energy needs 2. Low ju score, reassess for wound healing when pt is nutritionally stablized Expected Outcomes/Goals: lessons uremic syndrome, gradual wt loss Plan discussed with: Spouse, Son ERIC GIBBONS MD Oct 30, 2024 14:00
--- NOTE | 2024-10-30 15:27 | DVHPN2 ---
Consult Progress Note Subjective Other Systems: The patient remains in normal sinus rhythm on engine monitor No cardiac events reported overnight Objective vital signs Vital Sign Date Time Temp Pulse Resp B/P (MAP) Pulse Ox O2 Delivery O2 Flow Rate FiO2 10/30/24 14:30 87.6 66 24 107/72 (84) 98 189.7 10/30/24 14:00 30 10/30/24 10:00 Mechanical Ventilator+ Total Intake and Output 10/29/24 10/29/24 10/30/24 15:00 23:00 07:00 Intake Total 1650.675 ml 845.80 ml 287.75 ml Output Total 450 ml 300 ml Balance 1650.675 ml 395.80 ml -12.25 ml medications Current Medications Medications Dose Ordered Sig/Sarita Route Start Time Stop Time Status Last Admin Dose Admin Vasopressin 20 units/Sodium Chloride 100 ml @ 9 mls/hr Q11H7M IV 10/28/24 13:15 Midazolam HCl 50 ml @ 1 mls/hr Q24H IV 10/28/24 14:45 10/30/24 13:00 6 MLS/HR Norepinephrine Bitartrate 250 ml @ 3.75 mls/hr Q24H IV 10/28/24 15:00 10/30/24 05:56 3.75 MLS/HR Vancomycin HCl 0 ml @ 0 mls/hr UD IV 10/28/24 17:45 Sodium Chloride 10 ml Q8HR IV 10/28/24 22:00 10/30/24 14:55 10 ML Pantoprazole Sodium 40 mg DAILY IV 10/29/24 10:00 10/30/24 09:48 40 MG Dopamine HCl/ Dextrose 250 ml @ 15.375 mls/ hr [id number] IV 10/29/24 13:15 10/29/24 14:00 15.375 MLS/HR Heparin Sodium/ Dextrose 250 ml @ 11 mls/hr [id number] IV 10/29/24 22:00 10/29/24 22:00 11 MLS/HR Albuterol 2.5 mg Q6HR NEB 10/30/24 06:00 10/30/24 12:11 2.5 MG Ipratropium [place] 0.5 mg Q6HR NEB 10/30/24 06:00 10/30/24 12:11 0.5 MG Enteral Nutritional Formula 1,000 ml 30ML/HR GT 10/30/24 13:15 Ceftriaxone Sodium/Dextrose 50 ml @ 50 mls/hr DAILY IV 10/31/24 10:00 Examination: GENERAL:Abnormal, LUNGS:Abnormal (Mechanically ventilated), CVS:Normal, NEURO:Abnormal (Chemically sedated) laboratory and microbiology Laboratory Tests 10/30/24 02:48 Test 10/30/24 14:15 Range/Units Serum Glucose Pending Problem List/Assessment/Plan Problem List/Assessment/Plan Cardiopulmonary arrest status post CPR and return of spontaneous circulation NSTEMI, likely type 1 Shock, possibly mixed cardiogenic and septic History myocardial infarction Mild tricuspid valve regurgitation History of coronary artery disease not amenable to catheter based intervention Acute kidney injury Shock liver Heavy tobacco use Plan/Recommendations (Dr. Landeros): * Transthoracic echocardiogram reveals EF 50% * Heparin drip per ACS protocol * Eventual coronary angiogram if neurological function intact * Vasopressors for hemodynamic support * Close Cardiac surveillance; notify cardiology team immediately for any ECG changes Case discussed with . NSTEMI, likely type 1. Estimated downtime approximately 20 minutes before ROSC achieved. The patient would benefit from a coronary angiogram with left heart catheterization with proven intact neurological function. Consider Neurology consult. Thank you for allowing us to care for this patient. Please call with any questions or concerns. Critical care time spent: 44 minutes.This medical document was created using an electronic medical record system with voice recognition software and computerized dictation system. Although this document has been carefully reviewed, there might still be some phonetic and typographical errors. Occasional wrong-word or ``sound-alike substitutions may have occurred due to the inherent limitations of voice recognition software. These areas are purely typographical due to imperfections of the software programs and do not reflect any compromise in the patient's medical care. Please read the chart carefully and recognize, using context, where these substitutions have occurred. Plan discussed with: Spouse, Other (Bedside RN) Dietary Evaluation Review Comments: 1. consider TF Nepro @30ml/hr providing 58g Protein, 1274kcal 523ml free water, supporting 89% protein needs and 78% energy needs 2. Low ju score, reassess for wound healing when pt is nutritionally stablized Expected Outcomes/Goals: lessons uremic syndrome, gradual wt loss Date of Service: Oct 30, 2024 Billing Provider: ROGER PENA Common Visit Codes: 86139-CGXXPRAV CARE 30-74 MIN ROGER PENA Oct 30, 2024 15:27
[2024-10-30 16:23] LABS: Potassium 4.2 mmol/L (3.5-5.1); Sodium 137 mmol/L (136-145)
[2024-10-30 16:24] LABS: Anion Gap 12 (5-15); Chloride 107 mmol/L (98-107)
[2024-10-30 16:25] LABS: Calcium 7.0 mg/dL (8.7-10.4); Carbon Dioxide 18 mmol/L (20-31)
[2024-10-30 16:30] LABS: BUN/Creatinine Ratio 10.4 (10.0-20.0)
--- NOTE | 2024-10-30 16:33 | DVHPNRES ---
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 As per the patient was going out in his car and when the stopped to give him a message, he rolled down the window and when she started speaking to him she noticed that he was staring blankly and was not responding. Emergency services were called and CPR was initiated. Patient was defibrillated 4 times as per the . According to the report from the emergency physician bystander CPR was commenced for a total of 5 minutes still EMS arrived on the scene and patient was down for approximately 20 minutes before achieving ROSC in the field. Patient was given 3 rounds of epinephrine, 1 sodium bicarb, 1 calcium. Prior to the event patient was apparently normal, no recent surgery, no history of immobilization, no recent cancer diagnosis and the did not report of patient complaining of any chest pain, shortness of breath, fever, cough, abdominal pain, dysuria. She reported that yesterday patient did say he was not feeling well and was feeling achy. On arrival to the ED patient was bradycardic with the ECG showing sinus bradycardia, T-wave inversions in the lead V3-V4 and troponin levels were elevated. He had low blood pressure and was started on vasopressors with norepinephrine and dopamine. 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 Peripheral artery disease Surgical history: Right below-knee amputation, multiple surgeries for left knee replacement Social history: Patient is a long-term smoker with a 50 pack year smoking history, no alcohol or any other drug usage reported Home medications: Albuterol, testosterone, carvedilol 12.5 b.i.d., Protonix, aspirin Review of systems Patient seen and examined at the bedside. Currently sedated and on mechanical ventilation Patient had urine output of about a 750 mL till the afternoon, no fluids were given started on tube feedings no dialysis as of now Objective vital signs Vital Sign Date Time Temp Pulse Resp B/P (MAP) Pulse Ox O2 Delivery O2 Flow Rate FiO2 10/30/24 15:57 68 24 118/74 (89) 100 30 10/30/24 15:45 96.6 205.9 10/30/24 10:00 Mechanical Ventilator+ Total Intake and Output 10/29/24 10/29/24 10/30/24 15:00 23:00 07:00 Intake Total 1650.675 ml 845.80 ml 287.75 ml Output Total 450 ml 300 ml Balance 1650.675 ml 395.80 ml -12.25 ml medications Current Medications Medications Dose Ordered Sig/Sarita Route Start Time Stop Time Status Last Admin Dose Admin Vasopressin 20 units/Sodium Chloride 100 ml @ 9 mls/hr Q11H7M IV 10/28/24 13:15 Midazolam HCl 50 ml @ 1 mls/hr Q24H IV 10/28/24 14:45 10/30/24 13:00 6 MLS/HR Norepinephrine Bitartrate 250 ml @ 3.75 mls/hr Q24H IV 10/28/24 15:00 10/30/24 05:56 3.75 MLS/HR Vancomycin HCl 0 ml @ 0 mls/hr UD IV 10/28/24 17:45 Sodium Chloride 10 ml Q8HR IV 10/28/24 22:00 10/30/24 14:55 10 ML Pantoprazole Sodium 40 mg DAILY IV 10/29/24 10:00 10/30/24 09:48 40 MG Dopamine HCl/ Dextrose 250 ml @ 15.375 mls/ hr [id number] IV 10/29/24 13:15 10/29/24 14:00 15.375 MLS/HR Heparin Sodium/ Dextrose 250 ml @ 11 mls/hr [id number] IV 10/29/24 22:00 10/29/24 22:00 11 MLS/HR Albuterol 2.5 mg Q6HR NEB 10/30/24 06:00 10/30/24 12:11 2.5 MG Ipratropium [place] 0.5 mg Q6HR NEB 10/30/24 06:00 10/30/24 12:11 0.5 MG Enteral Nutritional Formula 1,000 ml 30ML/HR GT 10/30/24 13:15 Ceftriaxone Sodium/Dextrose 50 ml @ 50 mls/hr DAILY IV 10/31/24 10:00 Examination Gen - no pallor, no icterus, no cyanosis, no clubbing, no LAD, 1+ edema in the left lower extremity . Skin - Patients skin is warm and dry. HEENT - normocephalic, atraumatic, moist mucous membranes. Neck - full ROM, no LAD, no JVD Pulmonary - B/L equal breath sounds with mild rales, no wheezing, no stridor. cardiovascular - regular S1,S2 heard, no added sounds, no murmurs heard. peripheral pulses normal radial 2+, poor pedal pulses in the left side. capillary refill normal <2 secs in upper extremities GI - soft, abdomen. Bowel sounds normoactive Neurological - patient is sedated and on mechanical ventilation with a RASS of - 5 laboratory and microbiology Laboratory Tests 10/30/24 02:48 Test 10/30/24 14:15 Range/Units Serum Glucose Pending Microbiology Date/Time Source Procedure Growth Status 10/29/24 11:50 Urine - [place] Urine Culture - Preliminary Resulted 10/29/24 05:39 Nose MRSA Screen - Final Complete 10/28/24 12:00 Sputum Expectorated Sputum Gram Stain - Final Resulted 10/28/24 12:00 Respiratory Culture - Preliminary Serratia marcescens Resulted 10/28/24 12:00 Blood Blood Culture - Preliminary NO GROWTH AFTER 48 HOURS OF INCUBATION. Resulted Problem List/Assessment/Plan Problem List/Assessment/Plan Neurology Acute metabolic encephalopathy s/p cardiopulmonary arrest - head CT shows no acute intracranial abnormality, mild right ethmoid and sphenoid sinus disease - patient sedated and on mechanical ventilation Cardiovascular S/p cardiopulmonary arrest with ROSC Cardiogenic shock NSTEMI likely type 1 H/o coronary artery disease without any intervention Sinus bradycardia, resolving Probable underlying heart failure, systolic versus diastolic - initial ECG showed sinus bradycardia with a PVCs and T-wave inversions in lead V3 V4, troponins elevated - on norepinephrine - discontinuing dopamine - judicious fluid use - on heparin drip as per ACS protocol - Respiratory Status post cardiopulmonary arrest on mechanical ventilation pulmonary vascular congestion likely due to cardiogenic shock Probable COPD - chest x-ray shows mild cephalization of pulmonary vessels - judicious fluids - FiO2 30%, peep of 5, Vt 500ml Nephrology/metabolic WILMER on CKD likely due to acute tubular necrosis from shock Probable underlying CKD Anion gap metabolic acidosis is likely from lactic acidosis from shock - low urine output, diuretic challenge with 40mg IV lasix - no IV fluids - kidney function worsening - acidosis improved GI Shock liver Possible infectious/inflammatory colitis Possible cholecystitis Mild colonic diverticulosis - transaminases trending down - abdominal ultrasound showed distended gallbladder with wall thickening and edema, mild dilatation of the CBD, increased echogenicity of bilateral kidneys - CT abdomen pelvis without contrast showed mild wall thickening throughout the large bowel, bladder wall thickening, distended gallbladder Infectious disease Sepsis possible from cholecystitis/UTI/knee wound/pneumonia - on broad-spectrum antibiotic coverage with vancomycin and Zosyn - wound cultures, urine cultures, blood cultures, sputum cultures pending Hematology Microcytic hypochromic anemia likely from iron-deficiency Possible anemia from CKD - monitor H&H DVT prophylaxis: On heparin drip PUD prophylaxis: On Protonix Right IJV CVC inserted on 10/28 Intubated on 10/28 Carrasco's catheter on 10/28 tube feedings Goals of care discussed with the and the son for over 25 minutes. Meeting with from nephrology, dialysis to be held as of now, patient Code status: Full code Critical care time spent excluding procedures: 59 minutes Plan discussed with Dr. Johnston. Continue close monitoring for kidney function,cardiopulmonary status. Diuretic challenge with one dose of 40mg lasix to augment urine output as the patient is fluid overloaded. No IV fluids Plan discussed with: Spouse, Son, Other (SHRAVAN Tellez) My Orders My Orders Orders - BLANCA FRIEDMAN RESIDENT Procedure Category Date Status Time Ventilator Orders RT 10/29/24 Transmitted 17:58 Chest Portable XY 10/30/24 Resulted 03:47 Abg W/ Co-Ox RT 10/30/24 Logged 06:00 Nutritional PHA 10/30/24 In Process Supplements (Nepro 13:15 Ceftriaxone 2gm/50ml PHA 10/31/24 In Process D5w (Rocephin 2gm/5 10:00 Chest Xray 1 View XY 10/31/24 Logged 04:00 Abg W/ Co-Ox RT 10/31/24 Logged 04:00 Furosemide Injection PHA 10/30/24 Transmitted (Lasix Injection) 16:15 Dietary Evaluation Review Comments: 1. consider TF Nepro @30ml/hr providing 58g Protein, 1274kcal 523ml free water, supporting 89% protein needs and 78% energy needs 2. Low ju score, reassess for wound healing when pt is nutritionally stablized Expected Outcomes/Goals: lessons uremic syndrome, gradual wt loss BLANCA FRIEDMAN RESIDENT Oct 30, 2024 16:33
[2024-10-30 16:39] LABS: Blood Urea Nitrogen 69 mg/dL (9-23); Glucose 55 mg/dL (74-106)
[2024-10-30] MEDS: FUROSEMIDE 40 MG/4 ML VIAL IV ONE (17:09)
[2024-10-30] MEDS: DEXTROSE 50% SYRINGE 50 ML IV ONE (17:19)
[2024-10-30 17:42] LABS: INR 1.37 (0.9-1.15); Partial Thromboplastin Time 56.3 SEC (24.5-34.5); Prothrombin Time 14.1 sec (9.3-11.8)
[2024-10-30] MEDS: Nepro With Carb Steady 1 Liter Bottle GT SCH (17:48)
[2024-10-30] MEDS ORDERED: DEXTROSE (50%) 50ML SYRG IV PRN ×2 (22:30→23:00)
[2024-10-30] MEDS: ACCU-CHEK COMFORT CURVE STRIP VI SCH (23:43)
[2024-10-31] VITALS (107 sets, daily range): BP systolic 90–119; BP diastolic 53–71; PULSE 68–89; RESP 21–25; TEMP 97.9–100; O2SAT 95–100
[2024-10-31] MEDS ORDERED: ACCU-CHEK COMFORT CURVE STRIP VI SCH
[2024-10-31 04:39] LABS: Hemoglobin 9.9 g/dL (13.5-17.5); Mean Corpuscular Hemoglobin 22.5 pg (28.0-32.0)
[2024-10-31 04:41] LABS: INR 1.31 (0.9-1.15); Partial Thromboplastin Time 49.3 SEC (24.5-34.5); Prothrombin Time 13.5 sec (9.3-11.8)
[2024-10-31 04:42] LABS: Hematocrit 31.8 % (41.0-53.0); Mean Corpuscular Volume 72.3 fL (80.0-100.0); Nucleated Red Blood Cells % 0.1 %
[2024-10-31 04:48] LABS: Alkaline Phosphatase 50 U/L (46-116); Anion Gap 12 (5-15); BUN/Creatinine Ratio 8.6 (10.0-20.0); Chloride 107 mmol/L (98-107); Magnesium 1.9 mg/dL (1.6-2.6); Potassium 4.0 mmol/L (3.5-5.1); Sodium 138 mmol/L (136-145)
[2024-10-31 04:49] LABS: Bilirubin, Total 0.4 mg/dL (0.2-1.0)
[2024-10-31 04:52] LABS: Alanine Aminotransferase 823 U/L (7-40); Albumin 3.0 g/dL (3.2-4.8); Blood Urea Nitrogen 60 mg/dL (9-23); Calcium 7.7 mg/dL (8.7-10.4); Carbon Dioxide 19 mmol/L (20-31); Glucose 67 mg/dL (74-106); Total Protein 4.9 g/dL (5.7-8.2)
[2024-10-31] MEDS: HEPARIN DRIP/D5W 100UNITS/ML 250 ML IV SCH ×2 (05:00→19:00)
[2024-10-31] MEDS ORDERED: HEPARIN DRIP/D5W 100UNITS/ML 250 ML IV SCH (05:45)
--- NOTE | 2024-10-31 05:47 | DVH ---
CHEST RADIOGRAPH Indication: on vent Technique: Single frontal view of the chest was obtained Comparison: XY CHEST PORTABLE on DOS: 10/30/24, XY CHEST PORTABLE on DOS: 10/29/24, XY CHEST PORTABLE on DOS: 10/28/24 FINDINGS: Lines and Tubes: Unchanged endotracheal tube, enteric tube, and right IJ catheter. Lungs: Bilateral perihilar interstitial opacities and basilar airspace disease remains. Pleura: No evident effusion or pneumothorax. Cardiomediastinal contours: Unchanged. Bones: Unchanged. IMPRESSION: 1. No significant change from the previous study. Stable support devices.
[2024-10-31 07:44] LABS: Base Excess -8.2 mmol/L (-2.0-3.0)
[2024-10-31] MEDS: cefTRIAXone 2GM/50ML D5W 50 ML IV SCH (10:22)
[2024-10-31 12:21] LABS: INR 1.3 (0.9-1.15); Partial Thromboplastin Time 65.6 SEC (24.5-34.5); Prothrombin Time 13.4 sec (9.3-11.8)
--- NOTE | 2024-10-31 15:32 | DVHPN2 ---
Progress Note - Dictate Date Seen: Oct 31, 2024 Medical Necessity Reason Pt with a Central, PICC or Fol: Yes The following are medically ne: Central Line, Carrasco Catheter Subjective Urine output increased vital signs Vital Sign Date Time Temp Pulse Resp B/P (MAP) Pulse Ox O2 Delivery O2 Flow Rate FiO2 10/31/24 14:00 24 98 Mechanical Ventilator+ 30 30 10/31/24 14:00 77 10/31/24 13:24 103/63 (76) 10/31/24 11:15 98.8 209.8 10/31/24 10:00 30 Total Intake and Output 10/30/24 10/30/24 10/31/24 15:00 23:00 07:00 Intake Total 238.50 ml 278.25 ml 439.25 ml Output Total 550 ml 1200 ml Balance 238.50 ml -271.75 ml -760.75 ml medications Current Medications Medications Dose Ordered Sig/Sarita Route Start Time Stop Time Status Last Admin Dose Admin Vasopressin 20 units/Sodium Chloride 100 ml @ 9 mls/hr Q11H7M IV 10/28/24 13:15 Midazolam HCl 50 ml @ 1 mls/hr Q24H IV 10/28/24 14:45 10/31/24 11:54 6 MLS/HR Norepinephrine Bitartrate 250 ml @ 3.75 mls/hr Q24H IV 10/28/24 15:00 10/30/24 05:56 3.75 MLS/HR Vancomycin HCl 0 ml @ 0 mls/hr UD IV 10/28/24 17:45 Sodium Chloride 10 ml Q8HR IV 10/28/24 22:00 10/31/24 14:19 10 ML Pantoprazole Sodium 40 mg DAILY IV 10/29/24 10:00 10/31/24 10:22 40 MG Dopamine HCl/ Dextrose 250 ml @ 15.375 mls/ hr [id number] IV 10/29/24 13:15 10/29/24 14:00 15.375 MLS/HR Albuterol 2.5 mg Q6HR NEB 10/30/24 06:00 10/31/24 11:08 2.5 MG Ipratropium [place] 0.5 mg Q6HR NEB 10/30/24 06:00 10/31/24 11:08 0.5 MG Enteral Nutritional Formula 1,000 ml 30ML/HR GT 10/30/24 13:15 10/30/24 17:48 1,000 ML Ceftriaxone Sodium/Dextrose 50 ml @ 50 mls/hr DAILY IV 10/31/24 10:00 10/31/24 10:22 50 MLS/HR Dextrose 50 ml PRN PRN IV 10/30/24 23:00 Diagnostic Test (Pha) 1 strip Q4HPRN 10/31/24 00:00 10/31/24 14:20 1 STRIP Heparin Sodium/ Dextrose 250 ml @ 13 mls/hr [id number] IV 10/31/24 05:00 10/31/24 05:00 13 MLS/HR objective Gen: nad, intubated and sedated heent: nc/at, mmm lungs: Coarse breath sounds cvs: no rub ext: Right lower extremity amputation laboratory and microbiology Laboratory Tests 10/31/24 04:06 Test 10/31/24 04:06 Range/Units Serum Glucose 67 L 74-106 mg/dL Assessment/Plan Acute kidney injury likely acute tubular necrosis ischemic in the setting of shock Status post cardiac arrest status post CPR/ROSC Ventilator-dependent hypoxic respiratory failure Septic shock NSTEMI CAD - Recommendations - we will continue to monitor for signs of renal recovery, noted initial improvement in urine volumes Over previous 12 hours. - currently without urgent indication for dialysis. - we will coordinate with Cardiology if left heart catheterization is planned, scheduled we will plan to Ask for dialysis catheter and initiate dialysis therapy Dietary Evaluation Review Comments: 1. consider TF Nepro @30ml/hr providing 58g Protein, 1274kcal 523ml free water, supporting 89% protein needs and 78% energy needs 2. Low ju score, reassess for wound healing when pt is nutritionally stablized Expected Outcomes/Goals: lessons uremic syndrome, gradual wt loss Plan discussed with: Other ERIC GIBBONS MD Oct 31, 2024 15:32
--- NOTE | 2024-10-31 16:38 | DVHPN2 ---
Subjective Patient is intubated, sedated. Currently in bed. No apparent distress. is at bedside. Questions nondistended. Cardiology and Nephrology recommendation review. Plan for possible cardiac catheterization after patient neurologically is intact. Holding off dialysis at this time due to urine output. Daily SAT, SBT. No fever chills. WBC trending down. Orthopedic consult for left knee fluid recommendation. Per patient gastritis IV 3-4 weeks. Etiology unknown at this time pertinent further vascular surgery outpatient evaluation. Reason for visit: Cardiac arrest achieved ROSC Reviewed: Care Plan, Radiology Changes from previous H/P or p: No Changes System Changes ros limited due to intubated and sedated Objective Vitals Vital Signs Date Time Temp Pulse Resp B/P (MAP) Pulse Ox O2 Delivery O2 Flow Rate FiO2 10/31/24 16:15 98.6 78 24 102/64 (77) 97 209.5 10/31/24 15:22 30 10/31/24 14:00 Mechanical Ventilator+ 10/31/24 10:00 30 Intake/Output Intake and Output 10/31/24 07:00 Intake Total 956.00 ml Output Total 1750 ml Balance -794.00 ml Intake Oral 60 ml IV Total 625.00 ml Tube Feeding 271 ml Output Urine Total 1750 ml General Appearance: Other (TBI nondistended) HEENT: Atraumatic Lungs: Clear to auscultation, Normal air movement Cardiovascular: Regular rate, Normal S1, Normal S2 Abdomen: Normal bowel sounds, Soft Musculoskeletal: Other (Intubated and sedated) Medications Current Medications Medications Dose Ordered Sig/Sarita Route Start Time Stop Time Status Last Admin Dose Admin Vasopressin 20 units/Sodium Chloride 100 ml @ 9 mls/hr [id number] IV 10/28/24 13:15 Midazolam HCl 50 ml @ 1 mls/hr Q24H IV 10/28/24 14:45 10/31/24 11:54 6 MLS/HR Norepinephrine Bitartrate 250 ml @ 3.75 mls/hr Q24H IV 10/28/24 15:00 10/30/24 05:56 3.75 MLS/HR Vancomycin HCl 0 ml @ 0 mls/hr UD IV 10/28/24 17:45 Sodium Chloride 10 ml Q8HR IV 10/28/24 22:00 10/31/24 14:19 10 ML Pantoprazole Sodium 40 mg DAILY IV 10/29/24 10:00 10/31/24 10:22 40 MG Dopamine HCl/ Dextrose 250 ml @ 15.375 mls/ hr [id number] IV 10/29/24 13:15 10/29/24 14:00 15.375 MLS/HR Albuterol 2.5 mg Q6HR NEB 10/30/24 06:00 10/31/24 11:08 2.5 MG Ipratropium [place] 0.5 mg Q6HR NEB 10/30/24 06:00 10/31/24 11:08 0.5 MG Enteral Nutritional Formula 1,000 ml 30ML/HR GT 10/30/24 13:15 10/30/24 17:48 1,000 ML Ceftriaxone Sodium/Dextrose 50 ml @ 50 mls/hr DAILY IV 10/31/24 10:00 10/31/24 10:22 50 MLS/HR Dextrose 50 ml PRN PRN IV 10/30/24 23:00 Diagnostic Test (Pha) 1 strip Q4HPRN 10/31/24 00:00 10/31/24 14:20 1 STRIP Heparin Sodium/ Dextrose 250 ml @ 13 mls/hr [id number] IV 10/31/24 05:00 10/31/24 16:16 13 MLS/HR Laboratory Results Laboratory Tests 10/31/24 04:06 Chemistry Test 10/31/24 04:06 Albumin 3.0 g/dL (3.2-4.8) L Calcium Level 7.7 mg/dL (8.7-10.4) L Magnesium Level 1.9 mg/dL (1.6-2.6) Total Protein 4.9 g/dL (5.7-8.2) L Coagulation Test 10/30/24 17:15 10/31/24 04:06 10/31/24 11:32 Prothrombin Time 14.1 sec (9.3-11.8) H 13.5 sec (9.3-11.8) H 13.4 sec (9.3-11.8) H Prothrombin Time INR 1.37 (0.9-1.15) H 1.31 (0.9-1.15) H 1.30 (0.9-1.15) H Activated Partial Thromboplast Time 56.3 SEC (24.5-34.5) H 49.3 SEC (24.5-34.5) H 65.6 SEC (24.5-34.5) H LFT Test 10/31/24 04:06 Alanine Aminotransferase (ALT) 823 U/L (7-40) H Alkaline Phosphatase 50 U/L (46-116) Aspartate Amino Transferase (AST) 199 U/L (13-40) H Total Bilirubin 0.4 mg/dL (0.2-1.0) Urinalysis Test 10/29/24 11:30 Urine Creatinine 55.93 mg/dL (30.0-125.0) Urine Protein/Creatinine Ratio 1.64 Urine Sodium 51 mmol/L (40-220) Urine Total Protein 91.5 mg/dL (1-14) H Blood Gas Results Test 10/31/24 07:00 Arterial Blood pH 7.324 (7.350-7.450) FiO2 % 30.0 Microbiology Microbiology Date/Time Source Procedure Growth Status 10/29/24 11:50 Urine - [place] Urine Culture - Final Complete 10/29/24 05:39 Nose MRSA Screen - Final Complete 10/28/24 12:00 Sputum Expectorated Sputum Gram Stain - Final Resulted 10/28/24 12:00 Respiratory Culture - Preliminary Serratia marcescens Proteus mirabilis Resulted 10/28/24 12:00 Blood Blood Culture - Preliminary NO GROWTH AFTER 72 HOURS OF INCUBATION. Resulted Labs and/or images reviewed: Labs reviewed by me Assessment/Plan Assessment/Plan Acute metabolic encephalopathy s/p cardiopulmonary arrest - head CT shows no acute intracranial abnormality, mild right ethmoid and sphenoid sinus disease - patient sedated and on mechanical ventilation Cardiovascular S/p cardiopulmonary arrest with ROSC Cardiogenic shock NSTEMI likely type 1 H/o coronary artery disease without any intervention Sinus bradycardia, resolving Probable underlying heart failure, systolic versus diastolic - initial ECG showed sinus bradycardia with a PVCs and T-wave inversions in lead V3 V4, troponins elevated - on norepinephrine. map goal > 65 - on heparin drip as per ACS protocol - cardiac cath if stable per cardiology Respiratory Status post cardiopulmonary arrest on mechanical ventilation pulmonary vascular congestion likely due to cardiogenic shock Probable COPD - chest x-ray shows mild cephalization of pulmonary vessels - judicious fluids - FiO2 30%, peep of 5, Vt 500ml - daily sbt/sat - wean off vent as tolerated Nephrology/metabolic WILMER on CKD likely due to acute tubular necrosis from shock Probable underlying CKD Anion gap metabolic acidosis is likely from lactic acidosis from shock - low urine output, diuretic challenge with 40mg IV lasix - no IV fluids - kidney function worsening - acidosis improved - nephro rec appreciated. Continue monitor UO GI Shock liver Possible infectious/inflammatory colitis Possible cholecystitis Mild colonic diverticulosis - transaminases trending down - abdominal ultrasound showed distended gallbladder with wall thickening and edema, mild dilatation of the CBD, increased echogenicity of bilateral kidneys - CT abdomen pelvis without contrast showed mild wall thickening throughout the large bowel, bladder wall thickening, distended gallbladder Infectious disease Sepsis possible from cholecystitis/UTI/knee wound/pneumonia - on broad-spectrum antibiotic coverage with vancomycin and Zosyn - wound cultures, urine cultures, blood cultures, sputum cultures pending - wbc trending down Hematology Microcytic hypochromic anemia likely from iron-deficiency Possible anemia from CKD - monitor H&H DVT prophylaxis: On heparin drip PUD prophylaxis: On Protonix Right IJV CVC inserted on 10/28 Intubated on 10/28 Carrasco's catheter on 10/28 tube feedings Code status: Full code Critical care time spent excluding procedures: 55 min Plan discussed with: Patient, Spouse My Orders Orders - KELLY WALL MD Procedure Category Date Status Time Heparin Per Pharmacy [facility] 10/30/24 In Process Protocol 18:12 Heparin Drip/D5w PHA 10/31/24 In Process 100units/Ml 05:00 Heparin Per Pharmacy [facility] 10/31/24 In Process Protocol 05:00 PTPTT LAB 10/31/24 Logged 17:30 Heparin Per Pharmacy [facility] 10/31/24 In Process Protocol 12:40 Vancomycin,Random LAB 11/01/24 Verified 05:00 Vancomycin Per [facility] 10/31/24 In Process Pharmacy Protoc 15:55 * Orthopedic Consult CONS 10/31/24 Transmitted 16:30 Date of Service: Oct 31, 2024 Billing Provider: KELLY WALL MD Common Visit Codes: [id number] CARE 30-74 MIN KELLY WALL MD Oct 31, 2024 16:38
[2024-10-31 18:34] LABS: INR 1.3 (0.9-1.15); Prothrombin Time 13.4 sec (9.3-11.8)
[2024-10-31 18:36] LABS: Partial Thromboplastin Time 84.9 SEC (24.5-34.5)
[2024-10-31] MEDS: ACCU-CHEK COMFORT CURVE STRIP VI SCH (20:12)
--- NOTE | 2024-10-31 23:50 | DVHPN2 ---
Progress Note - Dictate Date Seen: Oct 31, 2024 Medical Necessity Reason Pt with a Central, PICC or Fol: Yes The following are medically ne: Central Line, Andre Catheter Reason for andre catheter: Strict I&O Subjective Gen.: Patient lying in bed in medical ICU. Sedated, intubated on mechanical ventilator. Head: Normocephalic, atraumatic. Eyes: PERRLA. Ears: Normal external anatomy. Throat: Endotracheal tube and orogastric tube in place. Neck: Supple, trachea midline. Chest: Transmitted breath sounds bilaterally. Decreased air entry bilaterally. No wheezing. Bibasilar crackles. Cardiovascular: Positive S1, positive S2. Regular rate and rhythm. Abdomen: Positive bowel sounds in all 4 quadrants. Soft, nontender, nondistended. : Andre in place. Normal external genitalia. Rectal: Deferred. Skin: Warm, dry. Intact. Extremities: 2+ radial pulses bilaterally. No lower extremity edema. Neuro: Sedated. vital signs Vital Sign Date Time Temp Pulse Resp B/P (MAP) Pulse Ox O2 Delivery O2 Flow Rate FiO2 10/31/24 22:01 85 24 106/66 (79) 100 30 10/31/24 22:00 Mechanical Ventilator+ 10/31/24 21:30 98.8 209.8 10/31/24 10:00 30 Total Intake and Output 10/30/24 10/30/24 10/31/24 14:59 22:59 06:59 Intake Total 238.50 ml 282.00 ml 444.75 ml Output Total 550 ml 1200 ml Balance 238.50 ml -268.00 ml -755.25 ml medications Current Medications Medications Dose Ordered Sig/Sarita Route Start Time Stop Time Status Last Admin Dose Admin Vasopressin 20 units/Sodium Chloride 100 ml @ 9 mls/hr Q11H7M IV 10/28/24 13:15 Midazolam HCl 50 ml @ 1 mls/hr Q24H IV 10/28/24 14:45 10/31/24 20:18 6 MLS/HR Norepinephrine Bitartrate 250 ml @ 3.75 mls/hr Q24H IV 10/28/24 15:00 10/30/24 05:56 3.75 MLS/HR Vancomycin HCl 0 ml @ 0 mls/hr UD IV 10/28/24 17:45 Sodium Chloride 10 ml Q8HR IV 10/28/24 22:00 10/31/24 21:43 10 ML Pantoprazole Sodium 40 mg DAILY IV 10/29/24 10:00 10/31/24 10:22 40 MG Dopamine HCl/ Dextrose 250 ml @ 15.375 mls/ hr [id number] IV 10/29/24 13:15 10/29/24 14:00 15.375 MLS/HR Albuterol 2.5 mg Q6HR NEB 10/30/24 06:00 10/31/24 18:41 2.5 MG Ipratropium [place] 0.5 mg Q6HR NEB 10/30/24 06:00 10/31/24 18:41 0.5 MG Enteral Nutritional Formula 1,000 ml 30ML/HR GT 10/30/24 13:15 10/30/24 17:48 1,000 ML Ceftriaxone Sodium/Dextrose 50 ml @ 50 mls/hr DAILY IV 10/31/24 10:00 10/31/24 10:22 50 MLS/HR Dextrose 50 ml PRN PRN IV 10/30/24 23:00 Heparin Sodium/ Dextrose 250 ml @ 11 mls/hr [id number] IV 10/31/24 18:45 Diagnostic Test (Pha) 1 strip Q4H 10/31/24 20:00 10/31/24 20:12 1 STRIP objective Gen.: Patient lying in bed in medical ICU. Sedated, intubated on mechanical ventilator. Head: Normocephalic, atraumatic. Eyes: PERRLA. Ears: Normal external anatomy. Throat: Endotracheal tube and orogastric tube in place. Neck: Supple, trachea midline. Chest: Transmitted breath sounds bilaterally. Decreased air entry bilaterally. No wheezing. Bibasilar crackles. Cardio vascular: Positive S1, positive S2. Regular rate and rhythm. Abdomen: Positive bowel sounds in all 4 quadrants. Soft, nontender, nondistended. : Andre in place. Normal external genitalia. Rectal: Deferred Skin: Warm, dry. Intact. Extremities: 2+ radial pulses bilaterally. No lower extremity edema. Neuro: Sedated. laboratory and microbiology Laboratory Tests 10/31/24 04:06 Test 10/31/24 04:06 Range/Units Serum Glucose 67 L 74-106 mg/dL Assessment/Plan Impression: Acute hypoxic respiratory failure On mechanical ventilator Acute metabolic encephalopathy S/p cardiac arrest Cardiogenic shock Plan: s/p intubation on mechanical ventilator On AC mode with RR 24, VT 500, PEEP 5, FiO2 30% CXR reviewed; no significant change - Bilateral perihilar interstitial opacities and basilar airspace disease. ABG reviewed - acidemia d/t metabolic acidosis. Sedated on Versed Heparin drip for anticoagulation Titrate FIO2 to keep O2 saturation above 92%. VAP bundle Daily ABG and CXR while intubated. Sedate for ventilatory synchrony Pressors as necessary for hemodynamic support. Titrate to keep MAP above 65 mmHg/SBP above 90 mmHg. Continue antibiotics. F/u cultures. Sputum cultures grew Serratia marcescens and Proteus mirabilis. Monitor renal function Monitor electrolytes. Supplement as necessary. Nutritional support. GI/DVT prophylaxis. Condition: Critical Prognosis: Poor given multiple comorbidities. Rest of plan per hospitalist and other consultants. A total of 35 minutes of critical care time was spent reviewing the patient record, examining the patient, making a diagnostic and therapeutic plan, discussing this plan with the medical personnel, following up on diagnostic studies and following the patient for clinical stability excluding any and all procedures. At least 50% of this time was spent in direct, [id number] contact. Thank you, Dr. Aburto, for allowing me to participate in this patient's care. Further recommendations will depend on patient's clinical course. Please do not hesitate to contact me if you have any questions or concerns. This medical document was created using an electronic medical record system with Sitem[employer]her dictation system. Although this document has been carefully reviewed, there may still be some phonetic and typographical errors. These areas are purely typographical due to imperfections of the software programs, and do not reflect any compromise in the patient's medical care. Dietary Evaluation Review Comments: 1. consider TF Nepro @30ml/hr providing 58g Protein, 1274kcal 523ml free water, supporting 89% protein needs and 78% energy needs 2. Low ju score, reassess for wound healing when pt is nutritionally stablized Expected Outcomes/Goals: lessons uremic syndrome, gradual wt loss Plan discussed with: Other (SHRAVAN Denson) Critical Care Time(min): 35 LYDIA RAMAN MD Oct 31, 2024 23:50
[2024-11-01] VITALS (107 sets, daily range): BP systolic 96–130; BP diastolic 55–77; PULSE 66–89; RESP 18–26; TEMP 97.5–99.3; O2SAT 98–100
[2024-11-01 01:44] LABS: INR 1.19 (0.9-1.15); Partial Thromboplastin Time 52.6 SEC (24.5-34.5); Prothrombin Time 12.4 sec (9.3-11.8)
[2024-11-01 03:59] LABS: Hematocrit 31.1 % (41.0-53.0); Hemoglobin 9.7 g/dL (13.5-17.5); Mean Corpuscular Hemoglobin 22.3 pg (28.0-32.0); Mean Corpuscular Volume 71.4 fL (80.0-100.0); Nucleated Red Blood Cells % 0.1 %
[2024-11-01 04:15] LABS: Alkaline Phosphatase 52 U/L (46-116); Anion Gap 13 (5-15); BUN/Creatinine Ratio 9.4 (10.0-20.0); Carbon Dioxide 20 mmol/L (20-31); Chloride 107 mmol/L (98-107); Glucose 80 mg/dL (74-106); Potassium 4.3 mmol/L (3.5-5.1); Sodium 140 mmol/L (136-145)
[2024-11-01 04:16] LABS: Alanine Aminotransferase 599 U/L (7-40); Albumin 3.2 g/dL (3.2-4.8); Bilirubin, Total 0.3 mg/dL (0.2-1.0); Blood Urea Nitrogen 70 mg/dL (9-23); Calcium 8.2 mg/dL (8.7-10.4); Total Protein 5.1 g/dL (5.7-8.2)
[2024-11-01 06:28] LABS: Base Excess -5.8 mmol/L (-2.0-3.0)
[2024-11-01 11:04] LABS: INR 1.15 (0.9-1.15); Partial Thromboplastin Time 48.7 SEC (24.5-34.5); Prothrombin Time 12.0 sec (9.3-11.8)
--- NOTE | 2024-11-01 11:16 | DVHPN2 ---
Progress Note - Dictate Date Seen: Nov 01, 2024 Medical Necessity Reason Pt with a Central, PICC or Fol: Yes The following are medically ne: Central Line, Andre Catheter Reason for andre catheter: Strict I&O Subjective remains intubated, somnolent vital signs Vital Sign Date Time Temp Pulse Resp B/P (MAP) Pulse Ox O2 Delivery O2 Flow Rate FiO2 11/01/24 10:45 68 24 106/65 (79) 99 11/01/24 10:15 Mechanical Ventilator+ 30 30 11/01/24 08:30 98.2 208.8 10/31/24 10:00 30 Total Intake and Output 10/31/24 10/31/24 11/01/24 15:00 23:00 07:00 Intake Total 202 ml 463 ml 293 ml Output Total 650 ml 510 ml Balance 202 ml -187 ml -217 ml medications Current Medications Medications Dose Ordered Sig/Sarita Route Start Time Stop Time Status Last Admin Dose Admin Vasopressin 20 units/Sodium Chloride 100 ml @ 9 mls/hr Q11H7M IV 10/28/24 13:15 Midazolam HCl 50 ml @ 1 mls/hr Q24H IV 10/28/24 14:45 11/01/24 08:22 6 MLS/HR Norepinephrine Bitartrate 250 ml @ 3.75 mls/hr Q24H IV 10/28/24 15:00 10/30/24 05:56 3.75 MLS/HR Vancomycin HCl 0 ml @ 0 mls/hr UD IV 10/28/24 17:45 Sodium Chloride 10 ml Q8HR IV 10/28/24 22:00 11/01/24 06:00 10 ML Pantoprazole Sodium 40 mg DAILY IV 10/29/24 10:00 11/01/24 09:57 40 MG Dopamine HCl/ Dextrose 250 ml @ 15.375 mls/ hr [id number] IV 10/29/24 13:15 10/29/24 14:00 15.375 MLS/HR Albuterol 2.5 mg Q6HR NEB 10/30/24 06:00 11/01/24 06:05 2.5 MG Ipratropium [place] 0.5 mg Q6HR NEB 10/30/24 06:00 11/01/24 06:05 0.5 MG Enteral Nutritional Formula 1,000 ml 30ML/HR GT 10/30/24 13:15 10/30/24 17:48 1,000 ML Ceftriaxone Sodium/Dextrose 50 ml @ 50 mls/hr DAILY IV 10/31/24 10:00 11/01/24 09:57 50 MLS/HR Dextrose 50 ml PRN PRN IV 10/30/24 23:00 Heparin Sodium/ Dextrose 250 ml @ 11 mls/hr [id number] IV 10/31/24 18:45 Diagnostic Test (Pha) 1 strip Q4H 10/31/24 20:00 11/01/24 08:12 1 STRIP objective Gen: nad, intubated and sedated heent: nc/at, mmm lungs: Coarse breath sounds cvs: no rub ext: Right lower extremity amputation laboratory and microbiology Laboratory Tests 11/01/24 03:00 Test 11/01/24 03:00 Range/Units Serum Glucose 80 74-106 mg/dL Assessment/Plan Acute kidney injury likely acute tubular necrosis ischemic in the setting of shock Status post cardiac arrest status post CPR/ROSC Ventilator-dependent hypoxic respiratory failure Septic shock NSTEMI CAD - Recommendations - despite metabolic parameters being susceptible, may consider initiation of dialysis therapy should kidney function not show meaningful recovery, plateau of serum creatinine. - discussed possibility of dialysis with the patient's and patient's son on October 30, they were in agreement with initiation of dialysis as needed. Dietary Evaluation Review Comments: 1. consider TF Nepro @30ml/hr providing 58g Protein, 1274kcal 523ml free water, supporting 89% protein needs and 78% energy needs 2. Low ju score, reassess for wound healing when pt is nutritionally stablized Expected Outcomes/Goals: lessons uremic syndrome, gradual wt loss Plan discussed with: Other ERIC GIBBONS MD Nov 01, 2024 11:15
--- NOTE | 2024-11-01 11:20 | CONS ---
Pharmacy Clinical Information: HEPARIN DRIP, ACS PROTOCOL @10:33 APTT: 48.7- NO BOLUS, INCREASE HEPARIN DRIP RATE TO 1300 UNITS/HR NEXT APTT DRAW SCHEDULED @1730 PER RX PROTOCOL CONFIRMED AND READ BACK WITH LUBNA JACKSON PHARMACIST Nov 01, 2024 11:20
[2024-11-01] MEDS: HEPARIN DRIP/D5W 100UNITS/ML 250 ML IV SCH (11:24)
--- NOTE | 2024-11-01 16:32 | DVH ---
EXAM: XY L KNEE 2V XRAY REASON FOR EXAM: POSSIBLE FLUID COLLECTION TECHNIQUE: AP and cross-table lateral views of the left knee are submitted for review. 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 Evaluation for knee effusion is degraded by obliquity of t he lateral view. There is severe diffuse soft tissue swelling about the knee, greatest anteriorly. No acute fracture is identified. IMPRESSION: No acute fracture or dislocation. Severe soft tissue swelling. Evaluation for joint effusion is degraded by obliquity of the lateral view.
--- NOTE | 2024-11-01 16:37 | DVHPN2 ---
Progress Note Date Seen: Nov 01, 2024 Medical Necessity Reason Pt with a Central, PICC or Fol: Yes The following are medically ne: Central Line, Andre Catheter Reason for andre catheter: Strict I&O Subjective Patient reports: Other Changes from previous H/P or p: No Changes Objective vital signs Vital Sign Date Time Temp Pulse Resp B/P (MAP) Pulse Ox O2 Delivery O2 Flow Rate FiO2 11/01/24 16:19 73 24 107/63 (78) 98 30 11/01/24 14:00 Mechanical Ventilator+ 11/01/24 12:00 98.6 98.6 10/31/24 10:00 30 Total Intake and Output 10/31/24 10/31/24 11/01/24 15:00 23:00 07:00 Intake Total 202 ml 463 ml 293 ml Output Total 650 ml 510 ml Balance 202 ml -187 ml -217 ml medications Current Medications Medications Dose Ordered Sig/Sarita Route Start Time Stop Time Status Last Admin Dose Admin Vasopressin 20 units/Sodium Chloride 100 ml @ 9 mls/hr Q11H7M IV 10/28/24 13:15 Midazolam HCl 50 ml @ 1 mls/hr Q24H IV 10/28/24 14:45 11/01/24 08:22 6 MLS/HR Norepinephrine Bitartrate 250 ml @ 3.75 mls/hr Q24H IV 10/28/24 15:00 10/30/24 05:56 3.75 MLS/HR Vancomycin HCl 0 ml @ 0 mls/hr UD IV 10/28/24 17:45 Sodium Chloride 10 ml Q8HR IV 10/28/24 22:00 11/01/24 14:00 10 ML Pantoprazole Sodium 40 mg DAILY IV 10/29/24 10:00 11/01/24 09:57 40 MG Dopamine HCl/ Dextrose 250 ml @ 15.375 mls/ hr [id number] IV 10/29/24 13:15 10/29/24 14:00 15.375 MLS/HR Albuterol 2.5 mg Q6HR NEB 10/30/24 06:00 11/01/24 11:43 2.5 MG Ipratropium [place] 0.5 mg Q6HR NEB 10/30/24 06:00 11/01/24 11:43 0.5 MG Enteral Nutritional Formula 1,000 ml 30ML/HR GT 10/30/24 13:15 10/30/24 17:48 1,000 ML Ceftriaxone Sodium/Dextrose 50 ml @ 50 mls/hr DAILY IV 10/31/24 10:00 11/01/24 09:57 50 MLS/HR Dextrose 50 ml PRN PRN IV 10/30/24 23:00 Diagnostic Test (Pha) 1 strip Q4H 10/31/24 20:00 11/01/24 16:03 1 STRIP Heparin Sodium/ Dextrose 250 ml @ 13 mls/hr [id number] IV 11/01/24 11:30 11/01/24 11:24 13 MLS/HR Examination General Appearance: 75 years old male, well nourished well developed. Intubated and sedated HEENT: Atraumatic Lungs: Clear to auscultation, Normal air movement Cardiovascular: Regular rate, Normal S1, Normal S2 Abdomen: Normal bowel sounds, Soft Musculoskeletal: Left knee edema, right knee amputation laboratory and microbiology Laboratory Tests 11/01/24 03:00 Test 11/01/24 03:00 Range/Units Serum Glucose 80 74-106 mg/dL Microbiology Date/Time Source Procedure Growth Status 10/29/24 11:50 Urine - Andre Port Urine Culture - Final Complete 10/29/24 05:39 Nose MRSA Screen - Final Complete 10/28/24 12:00 Sputum Expectorated Sputum Gram Stain - Final Complete 10/28/24 12:00 Respiratory Culture - Final Serratia marcescens Proteus mirabilis Staphylococcus aureus Complete 10/28/24 12:00 Blood Blood Culture - Preliminary NO GROWTH AFTER 72 HOURS OF INCUBATION. Resulted Problem List/Assessment/Plan Problem List/Assessment/Plan Acute metabolic encephalopathy s/p cardiopulmonary arrest - head CT shows no acute intracranial abnormality, mild right ethmoid and sphenoid sinus disease - patient sedated and on mechanical ventilation Cardiovascular S/p cardiopulmonary arrest with ROSC Cardiogenic shock NSTEMI likely type 1 H/o coronary artery disease without any intervention Sinus bradycardia, resolving Probable underlying heart failure, systolic versus diastolic - initial ECG showed sinus bradycardia with a PVCs and T-wave inversions in lead V3 V4, troponins elevated - on norepinephrine. map goal > 65 - on heparin drip as per ACS protocol - cardiac cath if stable per cardiology Respiratory Status post cardiopulmonary arrest on mechanical ventilation pulmonary vascular congestion likely due to cardiogenic shock Probable COPD - chest x-ray shows mild cephalization of pulmonary vessels - judicious fluids - FiO2 30%, peep of 5, Vt 500ml - daily sbt/sat - wean off vent as tolerated Nephrology/metabolic WILMER on CKD likely due to acute tubular necrosis from shock Probable underlying CKD Anion gap metabolic acidosis is likely from lactic acidosis from shock - low urine output, diuretic challenge with 40mg IV lasix - no IV fluids - kidney function worsening - acidosis improved - nephro rec appreciated. Continue monitor UO GI Shock liver Possible infectious/inflammatory colitis Possible cholecystitis Mild colonic diverticulosis - transaminases trending down - abdominal ultrasound showed distended gallbladder with wall thickening and edema, mild dilatation of the CBD, increased echogenicity of bilateral kidneys - CT abdomen pelvis without contrast showed mild wall thickening throughout the large bowel, bladder wall thickening, distended gallbladder Infectious disease Sepsis possible from cholecystitis/UTI/knee wound/pneumonia - on broad-spectrum antibiotic coverage with vancomycin and Zosyn - staph, proteus and tamanna - pend ortho eval for left knee fluid collection for drainage with culture Hematology Microcytic hypochromic anemia likely from iron-deficiency Possible anemia from CKD - monitor H&H DVT prophylaxis: On heparin drip PUD prophylaxis: On Protonix Right IJV CVC inserted on 10/28 Intubated on 10/28 Andre's catheter on 10/28 tube feedings Code status: Full code Plan discussed with: Patient My Orders My Orders Orders - KELLY WALL MD Procedure Category Date Status Time * Orthopedic Consult CONS 10/31/24 Transmitted 16:30 Heparin Drip/D5w PHA 11/01/24 In Process 100units/Ml 11:30 Heparin Per Pharmacy [facility] 11/01/24 In Process Protocol 11:21 PTPTT LAB 11/01/24 Logged 17:30 Dietary Evaluation Review Comments: 1. consider TF Nepro @30ml/hr providing 58g Protein, 1274kcal 523ml free water, supporting 89% protein needs and 78% energy needs 2. Low ju score, reassess for wound healing when pt is nutritionally stablized Expected Outcomes/Goals: lessons uremic syndrome, gradual wt loss Date of Service: Nov 01, 2024 Billing Provider: KELLY WALL MD Common Visit Codes: [id number] CARE 30-74 MIN KELLY WALL MD Nov 01, 2024 16:37
[2024-11-01 18:23] LABS: INR 1.14 (0.9-1.15); Partial Thromboplastin Time 52.7 SEC (24.5-34.5); Prothrombin Time 11.9 sec (9.3-11.8)
--- NOTE | 2024-11-01 18:30 | CONS ---
Pharmacy Clinical Information: HEPARIN DRIP, ACS PROTOCOL @1726 APTT: 52.7- NO BOLUS, NO CHANGE NEXT APTT DRAW SCHEDULED @0000 PER RX PROTOCOL CONFIRMED AND READ BACK WITH RN LUBNA MCNEAL PHARMACIST Nov 01, 2024 18:30
--- NOTE | 2024-11-01 18:39 | DVHPN2 ---
Subjective No cardiac event reported Remained sinus rhythm Reason for visit: Cardiac arrest achieved ROSC Reviewed: Care Plan, Radiology Changes from previous H/P or p: No Changes Objective Vitals Vital Signs Date Time Temp Pulse Resp B/P (MAP) Pulse Ox O2 Delivery O2 Flow Rate FiO2 11/01/24 18:08 77 11/01/24 18:08 24 99 Mechanical Ventilator+ 30 30 11/01/24 18:00 99.0 114/72 (86) 210.2 10/31/24 10:00 30 Intake/Output Intake and Output 11/01/24 07:00 Intake Total 958 ml Output Total 1160 ml Balance -202 ml IV Total 469 ml Tube Feeding 489 ml Output Urine Total 1150 ml Stool Total 0 ml Emesis 10 ml General Appearance: Other (Has been off sedation for 6 hours. Pupils pinpoint, hyperactive gag reflex) HEENT: Atraumatic Lungs: Clear to auscultation, Normal air movement Cardiovascular: Regular rate, Normal S1, Normal S2 Abdomen: Normal bowel sounds, Soft Musculoskeletal: Other (Intubated and sedated) Medications Current Medications Medications Dose Ordered Sig/Sarita Route Start Time Stop Time Status Last Admin Dose Admin Vasopressin 20 units/Sodium Chloride 100 ml @ 9 mls/hr [id number] IV 10/28/24 13:15 Midazolam HCl 50 ml @ 1 mls/hr Q24H IV 10/28/24 14:45 11/01/24 08:22 6 MLS/HR Norepinephrine Bitartrate 250 ml @ 3.75 mls/hr Q24H IV 10/28/24 15:00 10/30/24 05:56 3.75 MLS/HR Vancomycin HCl 0 ml @ 0 mls/hr UD IV 10/28/24 17:45 Sodium Chloride 10 ml Q8HR IV 10/28/24 22:00 11/01/24 14:00 10 ML Pantoprazole Sodium 40 mg DAILY IV 10/29/24 10:00 11/01/24 09:57 40 MG Dopamine HCl/ Dextrose 250 ml @ 15.375 mls/ hr [id number] IV 10/29/24 13:15 10/29/24 14:00 15.375 MLS/HR Albuterol 2.5 mg Q6HR NEB 10/30/24 06:00 11/01/24 11:43 2.5 MG Ipratropium [place] 0.5 mg Q6HR NEB 10/30/24 06:00 11/01/24 11:43 0.5 MG Enteral Nutritional Formula 1,000 ml 30ML/HR GT 10/30/24 13:15 10/30/24 17:48 1,000 ML Ceftriaxone Sodium/Dextrose 50 ml @ 50 mls/hr DAILY IV 10/31/24 10:00 11/01/24 09:57 50 MLS/HR Dextrose 50 ml PRN PRN IV 10/30/24 23:00 Diagnostic Test (Pha) 1 strip Q4H 10/31/24 20:00 11/01/24 16:03 1 STRIP Heparin Sodium/ Dextrose 250 ml @ 13 mls/hr [id number] IV 11/01/24 11:30 11/01/24 11:24 13 MLS/HR Laboratory Results Laboratory Tests 11/01/24 03:00 Chemistry Test 11/01/24 03:00 Albumin 3.2 g/dL (3.2-4.8) Calcium Level 8.2 mg/dL (8.7-10.4) L Total Protein 5.1 g/dL (5.7-8.2) L Coagulation Test 11/01/24 01:11 11/01/24 10:33 11/01/24 17:26 Prothrombin Time 12.4 sec (9.3-11.8) H 12.0 sec (9.3-11.8) H 11.9 sec (9.3-11.8) H Prothrombin Time INR 1.19 (0.9-1.15) H 1.15 (0.9-1.15) 1.14 (0.9-1.15) Activated Partial Thromboplast Time 52.6 SEC (24.5-34.5) H 48.7 SEC (24.5-34.5) H 52.7 SEC (24.5-34.5) H LFT Test 11/01/24 03:00 Alanine Aminotransferase (ALT) 599 U/L (7-40) H Alkaline Phosphatase 52 U/L (46-116) Aspartate Amino Transferase (AST) 144 U/L (13-40) H Total Bilirubin 0.3 mg/dL (0.2-1.0) Urinalysis Test 10/29/24 11:30 Urine Creatinine 55.93 mg/dL (30.0-125.0) Urine Protein/Creatinine Ratio 1.64 Urine Sodium 51 mmol/L (40-220) Urine Total Protein 91.5 mg/dL (1-14) H Blood Gas Results Test 11/01/24 06:22 Arterial Blood pH 7.355 (7.350-7.450) FiO2 % 30.0 Microbiology Microbiology Date/Time Source Procedure Growth Status 10/29/24 11:50 Urine - [place] Urine Culture - Final Complete 10/29/24 05:39 Nose MRSA Screen - Final Complete 10/28/24 12:00 Sputum Expectorated Sputum Gram Stain - Final Complete 10/28/24 12:00 Respiratory Culture - Final Serratia marcescens Proteus mirabilis Staphylococcus aureus Complete 10/28/24 12:00 Blood Blood Culture - Preliminary NO GROWTH AFTER 72 HOURS OF INCUBATION. Resulted Assessment/Plan Assessment/Plan Cardiopulmonary arrest status post CPR and return of spontaneous circulation NSTEMI, likely type 1 Shock, possibly mixed cardiogenic and septic History myocardial infarction Mild tricuspid valve regurgitation History of coronary artery disease not amenable to catheter based intervention Acute kidney injury Shock liver Heavy tobacco use Plan/Recommendations (Dr. Fleming): * Transthoracic echocardiogram reveals EF 50% * Heparin drip per ACS protocol * Eventual coronary angiogram if neurological function intact * Vasopressors for hemodynamic support * Close Cardiac surveillance; notify cardiology team immediately for any ECG changes Case discussed with . NSTEMI, likely type 1. Estimated downtime approximately 20 minutes before ROSC achieved. The patient would benefit from a coronary angiogram with left heart catheterization with proven intact neurological function. Consider Neurology consult. Thank you for allowing us to care for this patient. Please call with any questions or concerns. Critical care time spent: 44 minutes.This medical document was created using an electronic medical record system with voice recognition software and computerized dictation system. Although this document has been carefully reviewed, there might still be some phonetic and typographical errors. Occasional wrong-word or ``sound-alike substitutions may have occurred due to the inherent limitations of voice recognition software. These areas are purely typographical due to imperfections of the software programs and do not reflect any compromise in the patient's medical care. Please read the chart carefully and recognize, using context, where these substitutions have occurred. Plan discussed with: Spouse, Other (Bedside RN) Plan discussed with: Patient, Other (RN) Date of Service: Nov 01, 2024 Billing Provider: SARANYA FLEMING Sr., MD Common Visit Codes: CONSULT ONLY Consultation Codes: [id number] CONSULT <45MIN ANDREA PINON HELP DESK ASSISTANT Nov 01, 2024 18:39
--- NOTE | 2024-11-01 23:34 | DVHPN2 ---
Progress Note - Dictate Date Seen: Nov 01, 2024 Medical Necessity Reason Pt with a Central, PICC or Fol: Yes The following are medically ne: Central Line, Andre Catheter Reason for andre catheter: Strict I&O Subjective Patient seen and examined at bedside. intubated on mechanical ventilator. Overnight events reviewed. vital signs Vital Sign Date Time Temp Pulse Resp B/P (MAP) Pulse Ox O2 Delivery O2 Flow Rate FiO2 11/01/24 22:15 99.0 72 24 119/74 (89) 99 210.2 11/01/24 22:07 30 11/01/24 22:00 Mechanical Ventilator+ 10/31/24 10:00 30 Total Intake and Output 10/31/24 10/31/24 11/01/24 15:00 23:00 07:00 Intake Total 202 ml 463 ml 293 ml Output Total 650 ml 510 ml Balance 202 ml -187 ml -217 ml medications Current Medications Medications Dose Ordered Sig/Sarita Route Start Time Stop Time Status Last Admin Dose Admin Vasopressin 20 units/Sodium Chloride 100 ml @ 9 mls/hr Q11H7M IV 10/28/24 13:15 Midazolam HCl 50 ml @ 1 mls/hr Q24H IV 10/28/24 14:45 11/01/24 08:22 6 MLS/HR Norepinephrine Bitartrate 250 ml @ 3.75 mls/hr Q24H IV 10/28/24 15:00 10/30/24 05:56 3.75 MLS/HR Vancomycin HCl 0 ml @ 0 mls/hr UD IV 10/28/24 17:45 Sodium Chloride 10 ml Q8HR IV 10/28/24 22:00 11/01/24 21:05 10 ML Pantoprazole Sodium 40 mg DAILY IV 10/29/24 10:00 11/01/24 09:57 40 MG Dopamine HCl/ Dextrose 250 ml @ 15.375 mls/ hr [id number] IV 10/29/24 13:15 10/29/24 14:00 15.375 MLS/HR Albuterol 2.5 mg Q6HR NEB 10/30/24 06:00 11/01/24 18:43 2.5 MG Ipratropium [place] 0.5 mg Q6HR NEB 10/30/24 06:00 11/01/24 18:43 0.5 MG Enteral Nutritional Formula 1,000 ml 30ML/HR GT 10/30/24 13:15 10/30/24 17:48 1,000 ML Ceftriaxone Sodium/Dextrose 50 ml @ 50 mls/hr DAILY IV 10/31/24 10:00 11/01/24 09:57 50 MLS/HR Dextrose 50 ml PRN PRN IV 10/30/24 23:00 Diagnostic Test (Pha) 1 strip Q4H 10/31/24 20:00 11/01/24 16:03 1 STRIP Heparin Sodium/ Dextrose 250 ml @ 13 mls/hr [id number] IV 11/01/24 11:30 11/01/24 11:24 13 MLS/HR objective Gen.: Patient lying in bed in medical ICU. Intubated on mechanical ventilator. Head: Normocephalic, atraumatic. Eyes: PERRLA. Ears: Normal external anatomy. Throat: Endotracheal tube and orogastric tube in place. Neck: Supple, trachea midline. Chest: Transmitted breath sounds bilaterally. Decreased air entry bilaterally. No wheezing. Bibasilar crackles. Cardiovascular: Positive S1, positive S2. Regular rate and rhythm. Abdomen: Positive bowel sounds in all 4 quadrants. Soft, nontender, nondistended. : Andre in place. Normal external genitalia. Rectal: Deferred. Skin: Warm, dry. Intact. Extremities: 2+ radial pulses bilaterally. No lower extremity edema. Neuro: Off sedation laboratory and microbiology Laboratory Tests 11/01/24 03:00 Test 11/01/24 03:00 Range/Units Serum Glucose 80 74-106 mg/dL Assessment/Plan Impression: Acute hypoxic respiratory failure On mechanical ventilator Acute metabolic encephalopathy S/p cardiac arrest Cardiogenic shock Events: Remains on vent support On AC mode with RR 24, VT 500, PEEP 5, FiO2 30% Off Versed. ABG reviewed, compensated. Heparin drip Continue antibiotics Pt is producing urine Ortho recommendations appreciated. Plan for arthrocentesis for joint aspiration. Labs and imaging reviewed. Rest of plan as noted below. Plan: s/p intubation on mechanical ventilator On AC mode with RR 24, VT 500, PEEP 5, FiO2 30% Titrate FIO2 to keep O2 saturation above 92%. VAP bundle Daily ABG and CXR while intubated. Off sedation Heparin drip for anticoagulation Pressors as necessary for hemodynamic support. Titrate to keep MAP above 65 mmHg/SBP above 90 mmHg. Continue antibiotics. F/u cultures. Sputum cultures grew Serratia marcescens and Proteus mirabilis. Monitor renal function Monitor electrolytes. Supplement as necessary. Nutritional support. GI/DVT prophylaxis. Condition: Critical Prognosis: Poor given multiple comorbidities. Rest of plan per hospitalist and other consultants. A total of 35 minutes of critical care time was spent reviewing the patient record, examining the patient, making a diagnostic and therapeutic plan, discussing this plan with the medical personnel, following up on diagnostic studies and following the patient for clinical stability excluding any and all procedures. At least 50% of this time was spent in direct, [id number] contact. Thank you, Dr. Aburto, for allowing me to participate in this patient's care. Further recommendations will depend on patient's clinical course. Please do not hesitate to contact me if you have any questions or concerns. This medical document was created using an electronic medical record system with [employer] dictation system. Although this document has been carefully reviewed, there may still be some phonetic and typographical errors. These areas are purely typographical due to imperfections of the software programs, and do not reflect any compromise in the patient's medical care. Dietary Evaluation Review Comments: 1. consider TF Nepro @30ml/hr providing 58g Protein, 1274kcal 523ml free water, supporting 89% protein needs and 78% energy needs 2. Low ju score, reassess for wound healing when pt is nutritionally stablized Expected Outcomes/Goals: lessons uremic syndrome, gradual wt loss Plan discussed with: Other (SHRAVAN Coffman) Critical Care Time(min): 35 LYDIA RAMAN MD Nov 01, 2024 23:34
[2024-11-02] VITALS (106 sets, daily range): BP systolic 109–150; BP diastolic 62–87; PULSE 68–103; RESP 19–29; TEMP 98.2–98.8; O2SAT 96–100
[2024-11-02 01:31] LABS: INR 1.13 (0.9-1.15); Partial Thromboplastin Time 60.0 SEC (24.5-34.5); Prothrombin Time 11.8 sec (9.3-11.8)
[2024-11-02 04:06] LABS: Hemoglobin 9.2 g/dL (13.5-17.5); Nucleated Red Blood Cells % 0.0 %
[2024-11-02 04:09] LABS: Hematocrit 29.0 % (41.0-53.0); Mean Corpuscular Hemoglobin 22.7 pg (28.0-32.0); Mean Corpuscular Volume 71.6 fL (80.0-100.0)
[2024-11-02 04:28] LABS: Alkaline Phosphatase 52 U/L (46-116); Anion Gap 12 (5-15); BUN/Creatinine Ratio 10.9 (10.0-20.0); Carbon Dioxide 22 mmol/L (20-31); Potassium 4.1 mmol/L (3.5-5.1); Sodium 142 mmol/L (136-145)
[2024-11-02 04:31] LABS: Alanine Aminotransferase 472 U/L (7-40); Albumin 3.1 g/dL (3.2-4.8); Bilirubin, Total 0.2 mg/dL (0.2-1.0); Blood Urea Nitrogen 79 mg/dL (9-23); Calcium 8.6 mg/dL (8.7-10.4); Chloride 108 mmol/L (98-107); Glucose 115 mg/dL (74-106); Total Protein 5.0 g/dL (5.7-8.2)
--- NOTE | 2024-11-02 05:38 | DVH ---
CHEST RADIOGRAPH Indication: PATIENT INTUBATED Technique: Single frontal view of the chest was obtained Comparison: XY CHEST XRAY 1 VIEW on DOS: 10/31/24 FINDINGS: Lines and Tubes: The endotracheal tube terminates 3.9 cm above the teresa. Right central venous cath eter terminates in the superior vena cava. Lungs: No focal consolidation. Pleura: Bilateral pleural effusions. No pneumothorax. Cardiomediastinal contours: Stable cardiovascular silhouette. Bones: No acute osseous abnormality. IMPRESSION: 1. Stable position of the support lines and tubes. 2. Bilateral pleural effusions and bibasilar airspace disease.
[2024-11-02 06:20] LABS: Base Excess -4.1 mmol/L (-2.0-3.0)
--- NOTE | 2024-11-02 08:01 | ECG ---
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
--- NOTE | 2024-11-02 10:07 | DVHPN2 ---
Consult Progress Note Subjective Other Systems: Patient in normal sinus rhythm at time of assessment. Objective vital signs Vital Sign Date Time Temp Pulse Resp B/P (MAP) Pulse Ox O2 Delivery O2 Flow Rate FiO2 11/02/24 08:50 82 24 130/81 (97) 98 30 11/02/24 06:45 98.6 209.5 11/02/24 02:00 Mechanical Ventilator+ 10/31/24 10:00 30 Total Intake and Output 11/01/24 11/01/24 11/02/24 15:00 23:00 07:00 Intake Total 175 ml 462 ml 419 ml Output Total 450 ml 400 ml Balance 175 ml 12 ml 19 ml medications Current Medications Medications Dose Ordered Sig/Sarita Route Start Time Stop Time Status Last Admin Dose Admin Vasopressin 20 units/Sodium Chloride 100 ml @ 9 mls/hr Q11H7M IV 10/28/24 13:15 Midazolam HCl 50 ml @ 1 mls/hr Q24H IV 10/28/24 14:45 11/01/24 08:22 6 MLS/HR Norepinephrine Bitartrate 250 ml @ 3.75 mls/hr Q24H IV 10/28/24 15:00 10/30/24 05:56 3.75 MLS/HR Vancomycin HCl 0 ml @ 0 mls/hr UD IV 10/28/24 17:45 Sodium Chloride 10 ml Q8HR IV 10/28/24 22:00 11/02/24 05:13 10 ML Pantoprazole Sodium 40 mg DAILY IV 10/29/24 10:00 11/02/24 09:16 40 MG Dopamine HCl/ Dextrose 250 ml @ 15.375 mls/ hr [id number] IV 10/29/24 13:15 10/29/24 14:00 15.375 MLS/HR Albuterol 2.5 mg Q6HR NEB 10/30/24 06:00 11/02/24 05:39 2.5 MG Ipratropium [place] 0.5 mg Q6HR NEB 10/30/24 06:00 11/02/24 05:39 0.5 MG Enteral Nutritional Formula 1,000 ml 30ML/HR GT 10/30/24 13:15 10/30/24 17:48 1,000 ML Ceftriaxone Sodium/Dextrose 50 ml @ 50 mls/hr DAILY IV 10/31/24 10:00 11/02/24 09:17 50 MLS/HR Dextrose 50 ml PRN PRN IV 10/30/24 23:00 Diagnostic Test (Pha) 1 strip Q4H 10/31/24 20:00 11/02/24 09:15 1 STRIP Heparin Sodium/ Dextrose 250 ml @ 13 mls/hr [id number] IV 11/01/24 11:30 11/02/24 05:14 13 MLS/HR Examination: GENERAL:Abnormal, LUNGS:Abnormal (Mechanically ventilated), CVS:Normal, NEURO:Abnormal (Chemically sedated) laboratory and microbiology Laboratory Tests 11/02/24 03:04 Test 11/02/24 03:04 Range/Units Serum Glucose 115 H 74-106 mg/dL Problem List/Assessment/Plan Problem List/Assessment/Plan Cardiopulmonary arrest status post CPR and return of spontaneous circulation NSTEMI, likely type 1 Shock, possibly mixed cardiogenic and septic History myocardial infarction Mild tricuspid valve regurgitation History of coronary artery disease not amenable to catheter based intervention Acute kidney injury Shock liver Heavy tobacco use Plan/Recommendations (Dr. Landeros): * Transthoracic echocardiogram reveals EF 50% * Heparin drip per ACS protocol * Eventual coronary angiogram if neurological function intact * Close Cardiac surveillance; notify cardiology team immediately for any ECG changes * Consider neurology consultation Case discussed with . NSTEMI, likely type 1. Estimated downtime approximately 20 minutes before ROSC achieved. The patient would benefit from a coronary angiogram with left heart catheterization with proven intact neurological function. Consider Neurology consult. Thank you for allowing us to care for this patient. Please call with any questions or concerns. Critical care time spent: 44 minutes.This medical document was created using an electronic medical record system with voice recognition software and computerized dictation system. Although this document has been carefully reviewed, there might still be some phonetic and typographical errors. Occasional wrong-word or ``sound-alike substitutions may have occurred due to the inherent limitations of voice recognition software. These areas are purely typographical due to imperfections of the software programs and do not reflect any compromise in the patient's medical care. Please read the chart carefully and recognize, using context, where these substitutions have occurred. Plan discussed with: Spouse Dietary Evaluation Review Comments: 1. consider TF Nepro @30ml/hr providing 58g Protein, 1274kcal 523ml free water, supporting 89% protein needs and 78% energy needs 2. Low ju score, reassess for wound healing when pt is nutritionally stablized Expected Outcomes/Goals: lessons uremic syndrome, gradual wt loss Date of Service: Nov 02, 2024 Billing Provider: ROGER PENA Common Visit Codes: [id number] CARE 30-74 MIN RGOER PENA Nov 02, 2024 10:07
[2024-11-02] MEDS: VANCOMYCIN 500mg/100mL 100 ML IV ONE (11:42)
--- NOTE | 2024-11-02 12:13 | DVHPN2 ---
Progress Note Date Seen: Nov 02, 2024 Medical Necessity Reason Pt with a Central, PICC or Fol: Yes The following are medically ne: Central Line, Andre Catheter Reason for andre catheter: Strict I&O Subjective Changes from previous H/P or p: No Changes Review of Systems: Deferred Objective vital signs Vital Sign Date Time Temp Pulse Resp B/P (MAP) Pulse Ox O2 Delivery O2 Flow Rate FiO2 11/02/24 12:00 98.3 72 24 121/71 (88) 98 98.3 11/02/24 12:00 30 11/02/24 10:00 Mechanical Ventilator 30.0 Total Intake and Output 11/01/24 11/01/24 11/02/24 15:00 23:00 07:00 Intake Total 175 ml 462 ml 419 ml Output Total 450 ml 400 ml Balance 175 ml 12 ml 19 ml medications Current Medications Medications Dose Ordered Sig/Sarita Route Start Time Stop Time Status Last Admin Dose Admin Vasopressin 20 units/Sodium Chloride 100 ml @ 9 mls/hr Q11H7M IV 10/28/24 13:15 Midazolam HCl 50 ml @ 1 mls/hr Q24H IV 10/28/24 14:45 11/01/24 08:22 6 MLS/HR Norepinephrine Bitartrate 250 ml @ 3.75 mls/hr Q24H IV 10/28/24 15:00 10/30/24 05:56 3.75 MLS/HR Vancomycin HCl 0 ml @ 0 mls/hr UD IV 10/28/24 17:45 Sodium Chloride 10 ml Q8HR IV 10/28/24 22:00 11/02/24 05:13 10 ML Pantoprazole Sodium 40 mg DAILY IV 10/29/24 10:00 11/02/24 09:16 40 MG Dopamine HCl/ Dextrose 250 ml @ 15.375 mls/ hr [id number] IV 10/29/24 13:15 10/29/24 14:00 15.375 MLS/HR Albuterol 2.5 mg Q6HR NEB 10/30/24 06:00 11/02/24 10:49 2.5 MG Ipratropium [place] 0.5 mg Q6HR NEB 10/30/24 06:00 11/02/24 10:49 0.5 MG Enteral Nutritional Formula 1,000 ml 30ML/HR GT 10/30/24 13:15 10/30/24 17:48 1,000 ML Ceftriaxone Sodium/Dextrose 50 ml @ 50 mls/hr DAILY IV 10/31/24 10:00 11/02/24 09:17 50 MLS/HR Dextrose 50 ml PRN PRN IV 10/30/24 23:00 Diagnostic Test (Pha) 1 strip Q4H 10/31/24 20:00 11/02/24 11:32 1 STRIP Heparin Sodium/ Dextrose 250 ml @ 13 mls/hr [id number] IV 11/01/24 11:30 11/02/24 05:14 13 MLS/HR Examination: GENERAL:Abnormal, LUNGS:Abnormal, CVS:Abnormal, NEURO:Abnormal laboratory and microbiology Laboratory Tests 11/02/24 03:04 Test 11/02/24 03:04 Range/Units Serum Glucose 115 H 74-106 mg/dL Microbiology Date/Time Source Procedure Growth Status 10/29/24 11:50 Urine - [place] Urine Culture - Final Complete 10/29/24 05:39 Nose MRSA Screen - Final Complete 10/28/24 12:00 Sputum Expectorated Sputum Gram Stain - Final Complete 10/28/24 12:00 Respiratory Culture - Final Serratia marcescens Proteus mirabilis Staphylococcus aureus Complete 10/28/24 12:00 Blood Blood Culture - Preliminary NO GROWTH AFTER 72 HOURS OF INCUBATION. Resulted Problem List/Assessment/Plan Problem List/Assessment/Plan 74-year-old male past medical history of peripheral vascular disease and history of bilateral knee replacements and right BKA presents to the hospital with unresponsiveness in the setting of cardiac arrest. Acute kidney injury with acute tubular necrosis kidney Chronic disease unspecified no Hyperkalemia Acute respiratory failure Altered mental status Cardiac arrest Discussed at length at bedside with patient's family given renal function metabolic clearance is not improve we will recommend hemodialysis treatment Dialysis catheter will be placed Dialysis treatments we will continue until show sign evidence of improvement Neurology evaluation ongoing post cardiac arrest Monitor electrolytes Avoid hypotension Avoid contrast studies at this time Neuro checks Guarded prognosis given cardiac arrest family is aware of this and are considering and discussing goals of care for directed therapy based on a new an ongoing information. Plan discussed with: Spouse, Son Dietary Evaluation Review Comments: 1. consider TF Nepro @30ml/hr providing 58g Protein, 1274kcal 523ml free water, supporting 89% protein needs and 78% energy needs 2. Low ju score, reassess for wound healing when pt is nutritionally stablized Expected Outcomes/Goals: lessons uremic syndrome, gradual wt loss Critical Care Time (mins): 40 ANNY JOINER MD Nov 02, 2024 12:13
[2024-11-02] MEDS: DOXYCYCLINE 100MG/100ML 100 ML IV SCH (18:05)
[2024-11-02] MEDS: FUROSEMIDE 40 MG/4 ML VIAL IV ONE (18:09)
[2024-11-02] MEDS: fentaNYL CITRATE 100 MCG/2 ML VL IV ONE (18:35)
[2024-11-02] MEDS: fentaNYL CITRATE 100 MCG/2 ML VL ONE (18:37)
--- NOTE | 2024-11-02 19:57 | DVHINCON2 ---
Date of service: Nov 02, [address] Aburto Reason for Consultation Cardiopulmonary arrest in field, status post ROSC History of Present Illness Mr. Mccall is a 72 years old gentleman with a history of hypertension, coronary artery disease, the patient was brought to the [facility] on 10/28/2024 with a chief company of cardiopulmonary arrest with a estimated downtime of 20 minutes. The patient has been intubated, he has been off sedation since 11/01/2024 but he remained nonresponsive to strong painful stimuli Urine culture, 10/29/2024 Blood culture, 10/28/2024: No growth ABG, 10/29/2024: Metabolic acidosis, hypoxia, 10/30/2024: Metabolic acidosis, hypoxia, 11/02/2024: Hypoxia, compensated metabolic acidosis WBC/HB/PLT/MCV, 11/02/2024,10.4/9.2/107/71.6 PT/INR/PTT, 10/31/2024: 30.4/1.3/84.9, 11/02/2024: 11.8/1.13/60 BUN/CR, 10/28/2024: 55/4.69, 11/02/24: 70.9/7.28 GFR, 11/02/24: 8 Lactic acid, 10/28/24: 7.7, 4.9, 2.6 TBI/AST/ALT/AP, 11/02/2024: 0.2/87/472/52 TG/HDL/LDL/HDL, 10/29/24: 80 8/78/43/23 Chest x-ray, 10/28/2024: 1. No acute intracranial process. 2. Mechanical ventilation with partially visualized Endotracheal tube and Left NG tube. 3. Mild right ethmoid and sphenoid sinus disease. 4. 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 Chest x-ray, 11/02/2024: 1. Hemodialysis catheter in place from the right with the tip in the superior vena cava above the right atrium. 2. Endotracheal tube in place 4.7 cm above the teresa. 3. Questionable PICC line in the right arm in place in the axillary vein. 4. Enteric tube not visualized. CT head, 11/11/2024: 1. No acute intracranial process. 2. Mechanical ventilation with partially visualized Endotracheal tube and Left NG tube. 3. Mild right eth moid and sphenoid sinus disease. 4. 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 Past Medical History Hypertension, coronary artery disease Past Surgical History Right BKA, left knee surgery Family History Unobtainable Social History Unobtainable Allergies: Coded Allergies: UNOBTAINABLE (Unverified , 10/28/24) Current Medications Current Medications Medications (Trade) Dose Ordered Sig/Sarita Route PRN Reason Start Time Stop Time Status Last Admin Doxycycline Hyclate 100 ml @ 50 mls/hr Q12H IV 11/02/24 17:45 11/02/24 18:05 Review of Systems Unobtainable Vital Signs Vital Signs Date Time Temp Pulse Resp B/P (MAP) Pulse Ox O2 Delivery O2 Flow Rate FiO2 11/02/24 19:00 98.4 92 24 125/78 (94) 96 209.1 11/02/24 18:00 30 11/02/24 10:00 Mechanical Ventilator 30.0 Physical Exam The patient is well-nourished and well-developed with no distress. The patient is intubated HEENT: Normocephalic, neck supple, no carotid bruits Lungs: Clear to auscultation Cardiovascular: Regular rate and region, S1, S2, no murmurs Abdomen: Soft, nontender, normal bowel sounds Status post right BKA MENTAL STATUS: Not responsive to the surroundings, CRANIAL NERVES: Pupils are equal, round and reactive, small. There are corneal reflexes and doll's eyes phenomenon. No signs of facial weakness. There are gagging or coughing reflexes SENSATION: No responses to pain stimuli. MOTOR: Normal tone in the upper and lower extremity. Normal muscle bulk. No fasciculations. No spontaneous movement. REFLEXES: Deep tendon reflexes are symmetrical. No pathological reflexes. CEREBELLAR/COORDINATION: Deferred GAIT/STATION: deferred. Labs/Diagnostic Data Labs Test 11/02/24 15:39 11/02/24 06:14 11/02/24 04:39 11/02/24 03:04 Range/Units POC Glucose 111 H 70-106 mg/dl Blood Gas Specimen Type Arterial Blood Gas Sample Site Right radial Blood Gas Patient Temperature 37.0 Arterial Blood Date Drawn [id number] Arterial Blood pH 7.381 7.350-7.450 Arterial Blood Partial Pressure CO2 35.2 35.0-48.0 mmHg Arterial Blood Partial Pressure O2 74.6 L 83.0-108.0 mmHg Arterial Blood HCO3 20.4 L 21.0-28.0 mmol/L Arterial Blood Oxygen Saturation 93.1 L 94.0-98.0 % Arterial Blood Base Excess -4.1 L -2.0-3.0 mmol/L Arterial Blood Oxyhemoglobin 92.0 L 94.0-98.0 % Arterial Blood Carboxyhemoglobin 1.2 0.5-1.5 % Arterial Blood Methemoglobin 0.0 0.0-1.5 % Cristhian Test Modified Blood Gas Total Hemoglobin 10.80 L 13.5-17.5 g/dL Blood Gas Set Respiration Rate 24.0 Blood Gas Modality Vent - ac FiO2 % 30.0 Blood Gas Tidal Volume 500.0 Blood Gas PEEP or CPAP 5.0 Magnesium Level 1.9 1.6-2.6 mg/dL White Blood Count 10.4 4.4-10.8 10^3/uL Red Blood Count 4.05 L 4.5-5.90 10^6/uL Hemoglobin 9.2 L 13.5-17.5 g/dL Hematocrit 29.0 L 41.0-53.0 % Mean Corpuscular Volume 71.6 L 80.0-100.0 fL Mean Corpuscular Hemoglobin 22.7 L 28.0-32.0 pg Mean Corpuscular Hemoglobin Concent 31.7 L 32.0-36.0 g/dL Red Cell Distribution Width 19.6 H 11.8-14.3 % Platelet Count 107 L 140-450 10^3/uL Mean Platelet Volume 8.9 6.9-10.8 fL Neutrophils (%) (Auto) 79.1 37.0-80.0 % Lymphocytes (%) (Auto) 6.2 L 10.0-50.0 % Monocytes (%) (Auto) 11.6 0.0-12.0 % Eosinophils (%) (Auto) 2.9 0.0-7.0 % Basophils (%) (Auto) 0.2 0.0-2.0 % Neutrophils # (Auto) 8.2 1.6-8.6 10 ^3/uL Lymphocytes # (Auto) 0.6 0.4-5.4 10 ^3/uL Monocytes # (Auto) 1.2 0-1.3 10 ^3/uL Eosinophils # (Auto) 0.3 0-0.8 10 ^3/uL Basophils # (Auto) 0 0-0.2 10 ^3/uL Nucleated Red Blood Cells 0.0 % Sodium Level 142 136-145 mmol/L Potassium Level 4.1 3.5-5.1 mmol/L Chloride Level 108 H 98-107 mmol/L Carbon Dioxide Level 22 20-31 mmol/L Anion Gap 12 5-15 Blood Urea Nitrogen 79 H 9-23 mg/dL Creatinine 7.28 H 0.700-1.30 mg/dL Glomerular Filtration Rate Calc 7 >90 mL/min BUN/Creatinine Ratio 10.9 10.0-20.0 Serum Glucose 115 H 74-106 mg/dL Calcium Level 8.6 L 8.7-10.4 mg/dL Total Bilirubin 0.2 0.2-1.0 mg/dL Aspartate Amino Transferase (AST) 87 H 13-40 U/L Alanine Aminotransferase (ALT) 472 H 7-40 U/L Alkaline Phosphatase 52 46-116 U/L Total Protein 5.0 L 5.7-8.2 g/dL Albumin 3.1 L 3.2-4.8 g/dL Random Vancomycin Level 13.6 H 5-10 ug/mL Test 11/02/24 01:00 10/29/24 18:37 10/29/24 14:30 10/29/24 11:30 Range/Units Prothrombin Time 11.8 9.3-11.8 sec Prothrombin Time INR 1.13 0.9-1.15 Activated Partial Thromboplast Time 60.0 H 24.5-34.5 SEC Lactic Acid Level 1.0 0.4-2.0 mmol/L Blood Gas Spontaneous Rate 22 Urine Creatinine 55.93 30.0-125.0 mg/dL Urine Protein/Creatinine Ratio 1.64 Urine Sodium 51 40-220 mmol/L Urine Total Protein 91.5 H 1-14 mg/dL Test 10/29/24 04:43 10/28/24 21:35 10/28/24 19:30 10/28/24 17:32 Range/Units Triglycerides Level 88 < 150 mg/dL Cholesterol Level 78 < 200 mg/dL LDL Cholesterol 43 < 100 mg/dL HDL Cholesterol 23 L 40-59 mg/dL Troponin I High Sensitivity 408 *H </=54 ng/L D-Dimer, Quantitative 9.19 H 0.0-0.49 mg/L FEU Direct Bilirubin 0.3 <0.3 mg/dL Test 10/28/24 13:48 10/28/24 13:46 10/28/24 12:10 10/28/24 12:00 Range/Units Blood Gas Critical Value Read Back Yes Blood Gas Notified Whom Blood Gas Notified Time [id number] Blood Gas Notified By Nakita ernandez rt B-Type Natriuretic Peptide 661.66 0-100 pg/mL Phosphorus Level 11.7 H 2.4-5.1 mg/dL Lipase 155 H 12-53 U/L Differential Total Cells Counted 100.0 100 Neutrophils % (Manual) 78 37.0-80.0 Band Neutrophils % (Manual) 7 Lymphocytes % (Manual) 10 10.0-50.0 Monocytes % (Manual) 5 0-12 Eosinophils % (Manual) 0 0-7 Basophils % (Manual) 0 0.0-2.0 Metamyelocytes % (manual) 0 Myelocytes % (Manual) 0 Promyelocytes % (Manual) 0 Blast Cells % (Manual) 0 Reactive Lymphocytes 0 Platelet Estimate Adequate Hypochromasia (manual) Moderate Microbiology Date/Time Source Procedure Growth Status 10/29/24 11:50 Urine - [place] Urine Culture - Final Complete 10/29/24 05:39 Nose MRSA Screen - Final Complete 10/28/24 12:00 Sputum Expectorated Sputum Gram Stain - Final Complete 10/28/24 12:00 Respiratory Culture - Final Serratia marcescens Proteus mirabilis Staphylococcus aureus Complete 10/28/24 12:00 Blood Blood Culture - Final NO GROWTH AFTER 5 DAYS OF INCUBATION. Complete Assessment Coma Metabolic encephalopathy Hypoxic encephalopathy Toxic encephalopathy Cardiopulmonary arrest/status post CPR Respiratory failure Metabolic acidosis Hypoxia Hypokalemia Shocked liver Plan/Recommendation Monitoring Supportive treatment Follow-up labs EEG Follow up CT head ICU care Stabilize vitals Respiratory support/vent management Oxygen IV antibiotics More recommendation per clinical course Prognosis:: Guarded Critical care time spent is 40 minutes This medical document was created using an electronic medical record system with [employer] system. Although this document has been carefully reviewed, there may still be some phonetic and typographical errors. These areas are purely typographical due to imperfections of the software programs, and do not reflect any compromise in the patient's medical care. Plan discussed with: TRACEY Jones MD Nov 02, 2024 19:57
--- NOTE | 2024-11-02 19:58 | DVH ---
CHEST RADIOGRAPH Indication: DIALYSIS CATHETER PLACEMENT Technique: Single frontal view of the chest was obtained Comparison: XY CHEST PORTABLE on DOS: 11/02/24, XY CHEST XRAY 1 VIEW on DOS: 10/31/24, XY CHEST PORTABLE on DOS: 10/30/24 FINDINGS: Lines and Tubes: Endotracheal tube 4.7 cm above the teresa. Hemodialysis catheter (Clifton catheter) from the right internal jugular vein with the tip in the superior vena cava above the right atrium. Q uestionable right PICC line in place into the axillary vein Lungs: No focal consolidation. Pleura: No effusion. No pneumothorax. Cardiomediastinal contours: Unremarkable Bones: No acute osseous abnormality. IMPRESSION: 1. Hemodialysis catheter in place from the right with the tip in the superior vena cava above the rig ht atrium. 2. Endotracheal tube in place 4.7 cm above the teresa. 3. Questionable PICC line in the right arm in place in the axillary vein. 4. Enteric tube not visualized.
[2024-11-02] MEDS: LIDOCAINE 1% (LOCAL ANESTH.) PF 5ml SDV ONE (20:05)
--- NOTE | 2024-11-02 20:19 | DVHPNRES ---
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 As per the patient was going out in his car and when the stopped to give him a message, he rolled down the window and when she started speaking to him she noticed that he was staring blankly and was not responding. Emergency services were called and CPR was initiated. Patient was defibrillated 4 times as per the . According to the report from the emergency physician bystander CPR was commenced for a total of 5 minutes still EMS arrived on the scene and patient was down for approximately 20 minutes before achieving ROSC in the field. Patient was given 3 rounds of epinephrine, 1 sodium bicarb, 1 calcium. Prior to the event patient was apparently normal, no recent surgery, no history of immobilization, no recent cancer diagnosis and the did not report of patient complaining of any chest pain, shortness of breath, fever, cough, abdominal pain, dysuria. She reported that yesterday patient did say he was not feeling well and was feeling achy. On arrival to the ED patient was bradycardic with the ECG showing sinus bradycardia, T-wave inversions in the lead V3-V4 and troponin levels were elevated. He had low blood pressure and was started on vasopressors with norepinephrine and dopamine. 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 Peripheral artery disease Surgical history: Right below-knee amputation, multiple surgeries for left knee replacement Social history: Patient is a long-term smoker with a 50 pack year smoking history, no alcohol or any other drug usage reported Home medications: Albuterol, testosterone, carvedilol 12.5 b.i.d., Protonix, aspirin Review of systems 11/02- patient seen and examined with the bedside. Over the weekend patient improved hemodynamically and was off vasopressor support on 10/31 early in the morning. Patient was taken off sedation on 11/01 in the evening has been off sedation since then. Patient had increased urine output over the weekend with 1750ml on 10/31, 1160ml on 11/01 and 850 mL on 11/02. Chest x-ray showed mild congestion following which patient was given 40 mg of Lasix on the 0 4 in the evening. Patient's WBC count trended down with the weekend and was within normal range on 4. Kidney function worsened and patient was put a temporary hemodialysis catheter and will be undergoing hemodialysis tomorrow. Objective vital signs Vital Sign Date Time Temp Pulse Resp B/P (MAP) Pulse Ox O2 Delivery O2 Flow Rate FiO2 11/02/24 19:00 98.4 92 24 125/78 (94) 96 209.1 11/02/24 18:30 30 11/02/24 10:00 Mechanical Ventilator 30.0 Total Intake and Output 11/01/24 11/01/24 11/02/24 15:00 23:00 07:00 Intake Total 175 ml 462 ml 419 ml Output Total 450 ml 400 ml Balance 175 ml 12 ml 19 ml medications Current Medications Medications Dose Ordered Sig/Sarita Route Start Time Stop Time Status Last Admin Dose Admin Vasopressin 20 units/Sodium Chloride 100 ml @ 9 mls/hr [id number] IV 10/28/24 13:15 Midazolam HCl 50 ml @ 1 mls/hr Q24H IV 10/28/24 14:45 11/01/24 08:22 6 MLS/HR Norepinephrine Bitartrate 250 ml @ 3.75 mls/hr Q24H IV 10/28/24 15:00 10/30/24 05:56 3.75 MLS/HR Sodium Chloride 10 ml Q8HR IV 10/28/24 22:00 11/02/24 13:14 10 ML Pantoprazole Sodium 40 mg DAILY IV 10/29/24 10:00 11/02/24 09:16 40 MG Dopamine HCl/ Dextrose 250 ml @ 15.375 mls/ hr [id number] IV 10/29/24 13:15 10/29/24 14:00 15.375 MLS/HR Albuterol 2.5 mg Q6HR NEB 10/30/24 06:00 11/02/24 18:57 2.5 MG Ipratropium [place] 0.5 mg Q6HR NEB 10/30/24 06:00 11/02/24 18:57 0.5 MG Enteral Nutritional Formula 1,000 ml 30ML/HR GT 10/30/24 13:15 10/30/24 17:48 1,000 ML Ceftriaxone Sodium/Dextrose 50 ml @ 50 mls/hr DAILY IV 10/31/24 10:00 11/02/24 09:17 50 MLS/HR Dextrose 50 ml PRN PRN IV 10/30/24 23:00 Diagnostic Test (Pha) 1 strip Q4H 10/31/24 20:00 11/02/24 15:43 1 STRIP Heparin Sodium/ Dextrose 250 ml @ 13 mls/hr [id number] IV 11/01/24 11:30 11/02/24 05:14 13 MLS/HR Doxycycline Hyclate 100 ml @ 50 mls/hr Q12H IV 11/02/24 17:45 11/02/24 18:05 50 MLS/HR Examination Gen - no pallor, no icterus, no cyanosis, no clubbing, no LAD, no edema in the left lower extremity . Skin - Patients skin is warm and dry. HEENT - normocephalic, atraumatic, moist mucous membranes. Neck - full ROM, no LAD, no JVD Pulmonary - B/L equal breath sounds with mild rales, no wheezing, no stridor. cardiovascular - regular S1,S2 heard, no added sounds, no murmurs heard. peripheral pulses normal radial 2+, poor pedal pulses in the left side. capillary refill normal <2 secs in upper extremities GI - soft, abdomen. Bowel sounds normoactive Neurological - patient is off sedation and on mechanical ventilation with a RASS of -5 laboratory and microbiology Laboratory Tests 11/02/24 03:04 Test 11/02/24 03:04 Range/Units Serum Glucose 115 H 74-106 mg/dL Microbiology Date/Time Source Procedure Growth Status 10/29/24 11:50 Urine - Andre Port Urine Culture - Final Complete 10/29/24 05:39 Nose MRSA Screen - Final Complete 10/28/24 12:00 Sputum Expectorated Sputum Gram Stain - Final Complete 10/28/24 12:00 Respiratory Culture - Final Serratia marcescens Proteus mirabilis Staphylococcus aureus Complete 10/28/24 12:00 Blood Blood Culture - Final NO GROWTH AFTER 5 DAYS OF INCUBATION. Complete Problem List/Assessment/Plan Problem List/Assessment/Plan Neurology Acute metabolic encephalopathy s/p cardiopulmonary arrest - head CT shows no acute intracranial abnormality, mild right ethmoid and sphenoid sinus disease - patient has been off sedation for the last 24 hrs - on mechanical ventilation Cardiovascular S/p cardiopulmonary arrest with ROSC Cardiogenic shock NSTEMI likely type 1 H/o coronary artery disease without any intervention Sinus bradycardia, resolving Probable underlying heart failure, systolic versus diastolic - initial ECG showed sinus bradycardia with a PVCs and T-wave inversions in lead V3 V4, troponins elevated - weaned off norepinephrine on 10/31, early in the morning - on heparin drip as per ACS protocol Respiratory Status post cardiopulmonary arrest on mechanical ventilation pulmonary vascular congestion likely due to cardiogenic shock Probable COPD Aspiration pneumonia - chest x-ray shows cephalization of pulmonary vessels with congestion bilaterally - FiO2 30%, peep of 5, Vt 500ml - given Lasix 40 mg IV - sputum cultures growing Serratia, Proteus mirabilis, MSSA, patient on ceftriaxone and doxycycline Nephrology/metabolic WILMER on CKD likely due to acute tubular necrosis from shock Probable underlying CKD Anion gap metabolic acidosis is likely from lactic acidosis from shock - low urine output, diuretic challenge with 40mg IV lasix - urine output increased - kidney function worsening - hemodialysis catheter inserted on 11/02 GI Shock liver Possible infectious/inflammatory colitis Possible cholecystitis Mild colonic diverticulosis - transaminases trending down - abdominal ultrasound showed distended gallbladder with wall thickening and edema, mild dilatation of the CBD, increased echogenicity of bilateral kidneys - CT abdomen pelvis without contrast showed mild wall thickening throughout the large bowel, bladder wall thickening, distended gallbladder Infectious disease Sepsis likely from pneumonia - sputum cultures showing growth of Serratia, Proteus mirabilis, MSSA - blood cultures after 5 days of incubation showing no growth - urine culture showed no growth - patient on ceftriaxone and doxycycline Hematology Microcytic hypochromic anemia likely from iron-deficiency Possible anemia from CKD - monitor H&H DVT prophylaxis: On heparin drip PUD prophylaxis: On Protonix Right upper arm midline inserted on 11/02 Intubated on 10/28 Andre's catheter on 10/28 tube feedings Right IJ temporary dialysis catheter inserted on 11/02 Goals of care discussed with the and the son for over 25 minutes. Code status: Full code Critical care time spent excluding procedures: 81 minutes Plan discussed with Dr. Nascimento Plan discussed with: Spouse, Son, Other (RN Griselda) My Orders My Orders Orders - BLANCA FRIEDMAN Procedure Category Date Status Time Abg W/ Co-Ox RT 11/02/24 Logged 05:22 * Neurology Consult CONS 11/02/24 Transmitted 10:40 Doxycycline PHA 11/02/24 In Process 100mg/100ml 17:45 Insert Midline ORDERS 11/02/24 Transmitted 17:33 Chest Xray 1 View XY 11/03/24 Logged 04:00 Abg W/ Co-Ox RT 11/03/24 Logged 04:00 Chest Portable XY 11/02/24 Resulted 19:16 Dietary Evaluation Review Comments: 1. consider TF Nepro @30ml/hr providing 58g Protein, 1274kcal 523ml free water, supporting 89% protein needs and 78% energy needs 2. Low ju score, reassess for wound healing when pt is nutritionally stablized Expected Outcomes/Goals: lessons uremic syndrome, gradual wt loss Date of Service: Nov 02, 2024 Billing Provider: JOSE A NASCIMENTO MD Common Visit Codes: 04900-GGSVSSRV CARE 30-74 MIN, 55091-SPTNPSAL CARE-EACH +30MIN BLANCA FRIEDMAN RESIDENT Nov 02, 2024 20:19 JOSE A NASCIMENTO MD Nov 03, 2024 15:28
[2024-11-02] MEDS: HEPARIN 1,000 UNITS/ml 1ML VIAL XX ONE (20:56)
--- NOTE | 2024-11-02 22:30 | DVH ---
CHEST RADIOGRAPH Indication: NG TUBE PLACEMENT Technique: Single frontal view of the chest was obtained Comparison: XY CHEST PORTABLE on DOS: 11/02/24, XY CHEST PORTABLE on DOS: 11/02/24, XY CHEST XRAY 1 VIEW on DOS: 10/31/24 FINDINGS: Lines and Tubes: The endotracheal tube 4.6 cm above the teresa. Lungs: No focal consolidation. Pleura: No effusion. No pneumothorax. Cardiomediastinal contours: Unremarkable Bones: No acute osseous abnormality. IMPRESSION: 1. Endotracheal tube 4.6 cm above the teresa. 2. No acute cardiopulmonary disease.
[2024-11-03] VITALS (105 sets, daily range): BP systolic 105–163; BP diastolic 70–92; PULSE 60–96; RESP 18–27; TEMP 97.2–98.6; O2SAT 96–100
--- NOTE | 2024-11-03 04:17 | DVH ---
EXAM: CT HEAD WITHOUT CONTRAST INDICATION: ALOC TECHNIQUE: CT of the head without intravenous contrast. Coronal and sagittal reformatted images are s ubmitted. Radiation Dose : 1. Head: CT Dose: CTDI volume is 56.06 mGy. Dose-length product is 1.71 mGy*cm The dose indicators for CT are the volume Computed Tomography (CT) Dose Index (CTDIvol) and the Dose Length Product (DLP), and are measured in units of mGy and mGy-cm, respectively. These indicators are not patient dose, but values generated from the CT scanner acquisition factors. The report includes radiation exposure data for exposures received during this examination. All CT scans at this medical facility are performed using dose modulation techniques as appropriate to a performed exam including the following: Automated exposure control was utilized; adjustment of the MA and/or KV according to patient size; and use of iterative reconstruction technique. COMPARISON: CT HEAD WITHOUT CONTRAST on DOS: 10/28/24 FINDINGS: There is no evidence of acute intracranial hemorrhage, extra-axial collection, mass effect, midline s hift, herniation or hydrocephalus. The ventricles, sulci and cisterns are age appropriate. The perez-white differentiation is intact. Mastoid air cells are clear. There is mucosal thickening in the sphenoid sinus and ethmoid air cells. Air-fluid level in the sphenoid sinus. No depressed calvarial fracture. The surrounding soft tissues are unremarkable. IMPRESSION: 1. No evidence of acute intracranial abnormality. 2. Acute sinusitis.
[2024-11-03 04:44] LABS: Hematocrit 31.1 % (41.0-53.0); Hemoglobin 9.6 g/dL (13.5-17.5); Mean Corpuscular Hemoglobin 22.3 pg (28.0-32.0); Mean Corpuscular Volume 72.3 fL (80.0-100.0); Nucleated Red Blood Cells % 0.0 %
[2024-11-03 04:48] LABS: Chloride 107 mmol/L (98-107); Potassium 4.3 mmol/L (3.5-5.1); Sodium 143 mmol/L (136-145)
[2024-11-03 04:49] LABS: Anion Gap 12 (5-15); Calcium 8.9 mg/dL (8.7-10.4); Carbon Dioxide 24 mmol/L (20-31)
[2024-11-03 04:51] LABS: INR 1.08 (0.9-1.15); Partial Thromboplastin Time 51.5 SEC (24.5-34.5); Prothrombin Time 11.4 sec (9.3-11.8)
[2024-11-03 04:54] LABS: BUN/Creatinine Ratio 11.4 (10.0-20.0); Glucose 93 mg/dL (74-106)
[2024-11-03 04:56] LABS: Blood Urea Nitrogen 80 mg/dL (9-23)
--- NOTE | 2024-11-03 05:16 | DVH ---
CHEST RADIOGRAPH Indication: on vent Technique: Single frontal view of the chest was obtained Comparison: XY CHEST PORTABLE on DOS: 11/02/24, XY CHEST PORTABLE on DOS: 11/02/24, XY CHEST PORTABLE on DOS: 11/02/24, XY CHEST XRAY 1 VIEW on DOS: 10/31/24, XY CHEST PORTABLE on DOS: 10/30/24 FINDINGS: Lines and Tubes: The endotracheal tube 4.6 cm above the teresa. Lungs: No focal consolidation. Pleura: No effusion. No pneumothorax. Cardiomediastinal contours: Unremarkable Bones: No acute osseous abnormality. IMPRESSION: Endotracheal tube 4.6 cm above the teresa. No acute cardiopulmonary disease.
[2024-11-03] MEDS: SODIUM CHL 0.9% 1000 ML BAG XX ONE (07:00)
[2024-11-03 07:28] LABS: Base Excess -1.6 mmol/L (-2.0-3.0)
--- NOTE | 2024-11-03 09:14 | DVHPN2 ---
Progress Note - Dictate Date Seen: Nov 03, 2024 Medical Necessity Reason Pt with a Central, PICC or Fol: Yes The following are medically ne: Central Line, Andre Catheter Reason for andre catheter: Strict I&O Subjective Mr. Mccall is a 72 years old gentleman with a history of hypertension, coronary artery disease, the patient was brought to the [facility] on 10/28/2024 with a chief company of cardiopulmonary arrest with a estimated downtime of 20 minutes. I have seen and examined the patient, talked to his nurse, his son in the room. He is intubated, reasonable to painful stimuli, he coughed excessively but with stable vitals Urine culture, 10/29/2024 Blood culture, 10/28/2024: No growth ABG, 10/29/2024: Metabolic acidosis, hypoxia, 10/30/2024: Metabolic acidosis, hypoxia, 11/02/2024: Hypoxia, compensated metabolic acidosis WBC/HB/PLT/MCV, 11/02/2024,10.4/9.2/107/71.6 PT/INR/PTT, 10/31/2024: 30.4/1.3/84.9, 11/02/2024: 11.8/1.13/60 BUN/CR, 10/28/2024: 55/4.69, 11/02/24: 70.9/7.28 GFR, 11/02/24: 8 Lactic acid, 10/28/24: 7.7, 4.9, 2.6 TBI/AST/ALT/AP, 11/02/2024: 0.2/87/472/52 TG/HDL/LDL/HDL, 10/29/24: 80 8/78/43/23 Chest x-ray, 10/28/2024: 1. No acute intracranial process. 2. Mechanical ventilation with partially visualized Endotracheal tube and Left NG tube. 3. Mild right ethmoid and sphenoid sinus disease. 4. 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 Chest x-ray, 11/02/2024: 1. Hemodialysis catheter in place from the right with the tip in the superior vena cava above the right atrium. 2. Endotracheal tube in place 4.7 cm above the teresa. 3. Questionable PICC line in the right arm in place in the axillary vein. 4. Enteric tube not visualized. CT head, : 1. No acute intracranial process. 2. Mechanical ventilation with partially visualized Endotracheal tube and Left NG tube. 3. Mild right ethmoid and sphenoid sinus disease. 4. 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 No evidence of acute intracranial abnormality. 2. Acute sinusitis vital signs Vital Sign Date Time Temp Pulse Resp B/P (MAP) Pulse Ox O2 Delivery O2 Flow Rate FiO2 11/03/24 08:30 98.5 75 24 132/81 (98) 98 98.5 11/03/24 08:00 Mechanical Ventilator+ 30 30 11/02/24 10:00 30.0 Total Intake and Output 11/02/24 11/02/24 11/03/24 15:00 23:00 07:00 Intake Total 154 ml 253 ml 91 ml Output Total 450 ml 1350 ml Balance 154 ml -197 ml -1259 ml medications Current Medications Medications Dose Ordered Sig/Sarita Route Start Time Stop Time Status Last Admin Dose Admin Vasopressin 20 units/Sodium Chloride 100 ml @ 9 mls/hr [id number] IV 10/28/24 13:15 Midazolam HCl 50 ml @ 1 mls/hr Q24H IV 10/28/24 14:45 11/01/24 08:22 6 MLS/HR Norepinephrine Bitartrate 250 ml @ 3.75 mls/hr Q24H IV 10/28/24 15:00 10/30/24 05:56 3.75 MLS/HR Sodium Chloride 10 ml Q8HR IV 10/28/24 22:00 11/03/24 05:20 10 ML Pantoprazole Sodium 40 mg DAILY IV 10/29/24 10:00 11/02/24 09:16 40 MG Dopamine HCl/ Dextrose 250 ml @ 15.375 mls/ hr [id number] IV 10/29/24 13:15 10/29/24 14:00 15.375 MLS/HR Albuterol 2.5 mg Q6HR NEB 10/30/24 06:00 11/03/24 06:08 2.5 MG Ipratropium [place] 0.5 mg Q6HR NEB 10/30/24 06:00 11/03/24 06:08 0.5 MG Enteral Nutritional Formula 1,000 ml 30ML/HR GT 10/30/24 13:15 10/30/24 17:48 1,000 ML Ceftriaxone Sodium/Dextrose 50 ml @ 50 mls/hr DAILY IV 10/31/24 10:00 11/02/24 09:17 50 MLS/HR Dextrose 50 ml PRN PRN IV 10/30/24 23:00 Diagnostic Test (Pha) 1 strip Q4H 10/31/24 20:00 11/03/24 04:00 1 STRIP Heparin Sodium/ Dextrose 250 ml @ 13 mls/hr [id number] IV 11/01/24 11:30 11/03/24 01:30 13 MLS/HR Doxycycline Hyclate 100 ml @ 50 mls/hr Q12H IV 11/02/24 17:45 11/03/24 05:20 50 MLS/HR objective The patient is well-nourished and well-developed with no distress. The patient is intubated Status post right BKA MENTAL STATUS: Not responsive to the surroundings, CRANIAL NERVES: Pupils are equal, round and reactive, small. There are corneal reflexes and doll's eyes phenomenon. No signs of facial weakness. There are gagging or coughing reflexes SENSATION: No responses to pain stimuli. MOTOR: Normal tone in the upper and lower extremity. Normal muscle bulk. No fasciculations. No spontaneous movement. REFLEXES: Deep tendon reflexes are symmetrical. No pathological reflexes. CEREBELLAR/COORDINATION: Deferred GAIT/STATION: deferred laboratory and microbiology Laboratory Tests 11/03/24 04:00 Test 11/03/24 04:00 Range/Units Serum Glucose 93 74-106 mg/dL Problem List Coma, unremarkable follow-up CT brain Metabolic encephalopathy Hypoxic encephalopathy Toxic encephalopathy Cardiopulmonary arrest/status post CPR Respiratory failure Metabolic acidosis Hypoxia Hypokalemia Shocked liver Assessment/Plan Monitoring Supportive treatment Follow-up labs EEG ICU care Stabilize vitals Respiratory support/vent management Oxygen IV antibiotics More recommendation per clinical course This medical document was created using an electronic medical record system with [employer] system. Although this document has been carefully reviewed, there may still be some phonetic and typographical errors. These areas are purely typographical due to imperfections of the software programs, and do not reflect any compromise in the patient's medical care. Prognosis guarded Dietary Evaluation Review Comments: 1. consider TF Nepro @30ml/hr providing 58g Protein, 1274kcal 523ml free water, supporting 89% protein needs and 78% energy needs 2. Low ju score, reassess for wound healing when pt is nutritionally stablized Expected Outcomes/Goals: lessons uremic syndrome, gradual wt loss Plan discussed with: Son, Other Critical Care Time(min): 35 TRACEY FUNK MD Nov 03, 2024 09:14
[2024-11-03] MEDS: DEXMEDETOMIDINE HCL IN D5W 100 ML IV SCH (12:40)
--- NOTE | 2024-11-03 13:26 | DVHINCON2 ---
Consult Note Consult Consult Note Location: ICU Date of Service: 11/02/2024 --- Reason for Consultation: Evaluation of left knee effusion in the setting of a history of left total knee arthroplasty with revision. --- History of Present Illness: The patient is currently admitted to the ICU for a myocardial infarction. They have a known history of left total knee arthroplasty with revision, complicated by chronic left knee effusions, which have required repeated aspirations in the past. According to the hospital team, the patient again presents with left knee effusion and pain. Hospitalist requesting knee aspiration today of possible. No injury, fall truama reported. Xray of left knee also completed with no reported fracture or hardware losening. On my interview patient was intubated and i was unable to obtain any hx today. --- Exam Findings (Orthopedic): currently being managed in the ICU setting. Intubated Left knee shows visible effusion that is palpable No erythema or warmth noted over the joint. Range of motion limited due to swelling. Surgical site from previous knee arthroplasty appears intact. incision has healed well --- Assessment: 1. Chronic left knee effusion, status post left total knee arthroplasty with revision. 2. Current effusion appears consistent with prior episodes. 3. Patient is currently medically unstable due to acute myocardial infarction. --- Plan: Recommend conservative management at this time due to ongoing cardiac event. Knee aspiration was completed, 130 ml of joint fluid was collected and sent to lab, Cell count is negative for septic joint at this time, Culture is pending. Xray with no periprosthetic fracture or hardware losening (All discussed with Dr. Cobb stone cleaner surgeon) Continue to monitor the knee for signs of infection (e.g., erythema, warmth, fever, elevated WBC). Re-evaluate once patient is medically stable; outpatient orthopedic follow-up may be warranted for chronic effusion management. Will defer to primary team regarding further systemic workup and timing for any procedure. --- Thank you for the consult. Please feel free to contact me for further questions or updates. Plan discussed with: Other (bedside nurse) Visit Coding Surgery Date of Service if different f: Nov 03, 2024 Billing Provider: JAMIE ORNELAS Surgery Visit Codes: 41671 - INP CONSULT <55 MIN JAMIE ORNELAS Nov 03, 2024 13:26
--- NOTE | 2024-11-03 13:26 | DVHPN2 ---
Progress Note Date Seen: Nov 03, 2024 Medical Necessity Reason Pt with a Central, PICC or Fol: Yes The following are medically ne: Central Line, Andre Catheter Reason for andre catheter: Strict I&O Objective vital signs Vital Sign Date Time Temp Pulse Resp B/P (MAP) Pulse Ox O2 Delivery O2 Flow Rate FiO2 11/03/24 13:05 87 24 135/86 (102) 97 30 11/03/24 12:00 97.4 97.4 11/03/24 10:00 Mechanical Ventilator+ 11/03/24 10:00 30.0 Total Intake and Output 11/02/24 11/02/24 11/03/24 15:00 23:00 07:00 Intake Total 154 ml 253 ml 91 ml Output Total 450 ml 1350 ml Balance 154 ml -197 ml -1259 ml medications Current Medications Medications Dose Ordered Sig/Sarita Route Start Time Stop Time Status Last Admin Dose Admin Norepinephrine Bitartrate 250 ml @ 3.75 mls/hr Q24H IV 10/28/24 15:00 10/30/24 05:56 3.75 MLS/HR Sodium Chloride 10 ml Q8HR IV 10/28/24 22:00 11/03/24 05:20 10 ML Pantoprazole Sodium 40 mg DAILY IV 10/29/24 10:00 11/02/24 09:16 40 MG Dopamine HCl/ Dextrose 250 ml @ 15.375 mls/ hr [id number] IV 10/29/24 13:15 10/29/24 14:00 15.375 MLS/HR Albuterol 2.5 mg Q6HR NEB 10/30/24 06:00 11/03/24 11:43 2.5 MG Ipratropium [place] 0.5 mg Q6HR NEB 10/30/24 06:00 11/03/24 11:43 0.5 MG Enteral Nutritional Formula 1,000 ml 30ML/HR GT 10/30/24 13:15 11/03/24 09:52 1,000 ML Ceftriaxone Sodium/Dextrose 50 ml @ 50 mls/hr DAILY IV 10/31/24 10:00 11/02/24 09:17 50 MLS/HR Dextrose 50 ml PRN PRN IV 10/30/24 23:00 Diagnostic Test (Pha) 1 strip Q4H 10/31/24 20:00 11/03/24 11:21 1 STRIP Heparin Sodium/ Dextrose 250 ml @ 13 mls/hr [id number] IV 11/01/24 11:30 11/03/24 01:30 13 MLS/HR Doxycycline Hyclate 100 ml @ 50 mls/hr Q12H IV 11/02/24 17:45 11/03/24 05:20 50 MLS/HR Examination: GENERAL:Abnormal, LUNGS:Abnormal, MSK:Abnormal, NEURO:Abnormal laboratory and microbiology Laboratory Tests 11/03/24 04:00 Test 11/03/24 04:00 Range/Units Serum Glucose 93 74-106 mg/dL Microbiology Date/Time Source Procedure Growth Status 11/02/24 20:00 Knee Fluid Gram Stain - Final Resulted 11/02/24 20:00 Knee Fluid Body Fluid Culture - Preliminary Resulted 10/29/24 11:50 Urine - Andre [place] Urine Culture - Final Complete 10/29/24 05:39 Nose MRSA Screen - Final Complete 10/28/24 12:00 Sputum Expectorated Sputum Gram Stain - Final Complete 10/28/24 12:00 Respiratory Culture - Final Serratia marcescens Proteus mirabilis Staphylococcus aureus Complete 10/28/24 12:00 Blood Blood Culture - Final NO GROWTH AFTER 5 DAYS OF INCUBATION. Complete Problem List/Assessment/Plan Problem List/Assessment/Plan 74-year-old male past medical history of peripheral vascular disease and history of bilateral knee replacements and right BKA presents to the hospital with unresponsiveness in the setting of cardiac arrest. Acute kidney injury with acute tubular necrosis kidney Chronic disease unspecified no Hyperkalemia Acute respiratory failure Altered mental status Cardiac arrest HD today first treatment, subsequent treatments to be scheduled based on labs and uop, tentative next is tomorrow minimal UF , still urinating with diuretics Neurology evaluation ongoing post cardiac arrest Monitor electrolytes Avoid hypotension Avoid contrast studies at this time Neuro checks Guarded prognosis given cardiac arrest family is aware of this and are considering and discussing goals of care for directed therapy based on a new an ongoing information. Plan discussed with: Spouse My Orders My Orders Orders - ANNY JOINER MD Procedure Category Date Status Time Hemodialysis Orders ORDERS 11/03/24 Transmitted 07:00 Dialysis Nursing GRANT 11/03/24 In Process Message 07:00 Document Fluid Input GRANT 11/03/24 In Process And Outpu 07:00 Dietary Evaluation Review Comments: 1. consider TF Nepro @30ml/hr providing 58g Protein, 1274kcal 523ml free water, supporting 89% protein needs and 78% energy needs 2. Low ju score, reassess for wound healing when pt is nutritionally stablized Expected Outcomes/Goals: lessons uremic syndrome, gradual wt loss Critical Care Time (mins): 33 ANNY JOINER MD Nov 03, 2024 13:26
--- NOTE | 2024-11-03 14:39 | DVHPN2 ---
Consult Progress Note Subjective Other Systems: Patient remains in normal sinus rhythm at time of assessment Patient currently undergoing hemodialysis at time of assessment Objective vital signs Vital Sign Date Time Temp Pulse Resp B/P (MAP) Pulse Ox O2 Delivery O2 Flow Rate FiO2 11/03/24 14:30 79 24 128/85 (99) 97 11/03/24 14:00 30 11/03/24 12:00 97.4 97.4 11/03/24 10:00 Mechanical Ventilator+ 11/03/24 10:00 30.0 Total Intake and Output 11/02/24 11/02/24 11/03/24 15:00 23:00 07:00 Intake Total 154 ml 253 ml 91 ml Output Total 450 ml 1350 ml Balance 154 ml -197 ml -1259 ml medications Current Medications Medications Dose Ordered Sig/Sarita Route Start Time Stop Time Status Last Admin Dose Admin Norepinephrine Bitartrate 250 ml @ 3.75 mls/hr Q24H IV 10/28/24 15:00 10/30/24 05:56 3.75 MLS/HR Sodium Chloride 10 ml Q8HR IV 10/28/24 22:00 11/03/24 14:20 10 ML Pantoprazole Sodium 40 mg DAILY IV 10/29/24 10:00 11/02/24 09:16 40 MG Dopamine HCl/ Dextrose 250 ml @ 15.375 mls/ hr [id number] IV 10/29/24 13:15 10/29/24 14:00 15.375 MLS/HR Albuterol 2.5 mg Q6HR NEB 10/30/24 06:00 11/03/24 11:43 2.5 MG Ipratropium [place] 0.5 mg Q6HR NEB 10/30/24 06:00 11/03/24 11:43 0.5 MG Enteral Nutritional Formula 1,000 ml 30ML/HR GT 10/30/24 13:15 11/03/24 09:52 1,000 ML Ceftriaxone Sodium/Dextrose 50 ml @ 50 mls/hr DAILY IV 10/31/24 10:00 11/02/24 09:17 50 MLS/HR Dextrose 50 ml PRN PRN IV 10/30/24 23:00 Diagnostic Test (Pha) 1 strip Q4H 10/31/24 20:00 11/03/24 11:21 1 STRIP Heparin Sodium/ Dextrose 250 ml @ 13 mls/hr [id number] IV 11/01/24 11:30 11/03/24 01:30 13 MLS/HR Doxycycline Hyclate 100 ml @ 50 mls/hr Q12H IV 11/02/24 17:45 11/03/24 05:20 50 MLS/HR Examination: GENERAL:Abnormal, LUNGS:Abnormal (Mechanical ventilation), CVS:Normal, NEURO:Abnormal (Chemically sedated) laboratory and microbiology Laboratory Tests 11/03/24 04:00 Test 11/03/24 04:00 Range/Units Serum Glucose 93 74-106 mg/dL Problem List/Assessment/Plan Problem List/Assessment/Plan Cardiopulmonary arrest status post CPR and return of spontaneous circulation NSTEMI, likely type 1 Shock, possibly mixed cardiogenic and septic History myocardial infarction Mild tricuspid valve regurgitation History of coronary artery disease not amenable to catheter based intervention Acute kidney injury, now on hemodialysis Shock liver Heavy tobacco use Plan/Recommendations (Dr. Landeros): * Transthoracic echocardiogram reveals EF 50% * Heparin drip per ACS protocol * Eventual coronary angiogram if neurological function intact * Close Cardiac surveillance; notify cardiology team immediately for any ECG changes * Hold lipid-lowering agent given severely elevated liver enzymes Case discussed with . NSTEMI, likely type 1. Estimated downtime approximately 20 minutes before ROSC achieved. The patient would benefit from a coronary angiogram with left heart catheterization with proven intact neurological function. Cardiology will continue to follow up. Thank you for allowing us to care for this patient. Please call with any questions or concerns. Critical care time spent: 44 minutes.This medical document was created using an electronic medical record system with voice recognition software and computerized dictation system. Although this document has been carefully reviewed, there might still be some phonetic and typographical errors. Occasional wrong-word or ``sound-alike substitutions may have occurred due to the inherent limitations of voice recognition software. These areas are purely typographical due to imperfections of the software programs and do not reflect any compromise in the patient's medical care. Please read the chart carefully and recognize, using context, where these substitutions have occurred. Plan discussed with: Spouse, Other (Bedside RN) Dietary Evaluation Review Comments: 1. consider TF Nepro @30ml/hr providing 58g Protein, 1274kcal 523ml free water, supporting 89% protein needs and 78% energy needs 2. Low ju score, reassess for wound healing when pt is nutritionally stablized Expected Outcomes/Goals: lessons uremic syndrome, gradual wt loss Date of Service: Nov 03, 2024 Billing Provider: ROGER PENA Common Visit Codes: [id number] CARE 30-74 MIN ROGER PENA Nov 03, 2024 14:39
[2024-11-03] MEDS: PROPOFOL 100 ML IV SCH (17:15)
[2024-11-03 18:15] LABS: Urine Amorphous Crystal FEW /hpf (None Seen); Urine Protein, UAD 1+ (Negative)
--- NOTE | 2024-11-03 18:31 | DVHNC2 ---
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) Indication: Other (dialysis) Room prepared for procedure: Yes Barmaid performed hand hygien: Yes Maximal sterile barrier precau: Mask/Eye shield, Sterile gown, Cap, Sterlie gloves, Large sterlie drape Skin Preparation: Chlorhexidine gluconate, Providine iodine Insertion site: Right, Internal jugular Central line catheter type: Dialysis non-tunneled Number of lumens: 2 Central line exchanged over a: Yes Antiseptic ointment applied to: Yes Post Assessment: Chest X-Ray, Proper placement Informed consent obtained: Yes (from spouse) Date of Service: Nov 02, 2024 Billing Provider: JOSE A NASCIMENTO MD Common Visit Codes: PROCEDURE ONLY Procedure Codes: 72425-ECLODW NON-TUNNEL CV CATH BLANCA FRIEDMAN RESIDENT Nov 03, 2024 18:30 JOSE A NASCIMENTO MD Nov 08, 2024 15:15
--- NOTE | 2024-11-03 18:32 | DVHPNRES ---
Progress Note Date Seen: Nov 03, 2024 Resident Creating Document: BLANCA FRIEDMAN RESIDENT Medical Necessity Reason Pt with a Central, PICC or Fol: Yes The following are medically ne: Central Line, Andre Catheter Reason for andre catheter: Strict I&O Subjective Review of Systems 11/03- patient seen and examined at the bedside. Over the weekend patient improved hemodynamically and was off vasopressor support on 10/31 early in the morning. Patient was taken off sedation on 11/01 in the evening has been off sedation since then. Patient had increased urine output over the weekend with 1750ml on 10/31, 1160ml on 11/01 and 850 mL on 11/02, 1800ml on 11/03. Chest x-ray showed improved congestion. No fever. Patient underwent hemodialysis today Objective vital signs Vital Sign Date Time Temp Pulse Resp B/P (MAP) Pulse Ox O2 Delivery O2 Flow Rate FiO2 11/03/24 18:15 76 24 143/83 (103) 99 11/03/24 18:00 30 11/03/24 16:00 97.2 97.2 11/03/24 10:00 Mechanical Ventilator+ 11/03/24 10:00 30.0 Total Intake and Output 11/02/24 11/02/24 11/03/24 14:59 22:59 06:59 Intake Total 141 ml 253 ml 91 ml Output Total 450 ml 1350 ml Balance 141 ml -197 ml -1259 ml medications Current Medications Medications Dose Ordered Sig/Sarita Route Start Time Stop Time Status Last Admin Dose Admin Norepinephrine Bitartrate 250 ml @ 3.75 mls/hr Q24H IV 10/28/24 15:00 10/30/24 05:56 3.75 MLS/HR Sodium Chloride 10 ml Q8HR IV 10/28/24 22:00 11/03/24 14:20 10 ML Pantoprazole Sodium 40 mg DAILY IV 10/29/24 10:00 11/03/24 16:15 40 MG Dopamine HCl/ Dextrose 250 ml @ 15.375 mls/ hr [id number] IV 10/29/24 13:15 10/29/24 14:00 15.375 MLS/HR Albuterol 2.5 mg Q6HR NEB 10/30/24 06:00 11/03/24 11:43 2.5 MG Ipratropium [place] 0.5 mg Q6HR NEB 10/30/24 06:00 11/03/24 11:43 0.5 MG Enteral Nutritional Formula 1,000 ml 30ML/HR GT 10/30/24 13:15 11/03/24 09:52 1,000 ML Ceftriaxone Sodium/Dextrose 50 ml @ 50 mls/hr DAILY IV 10/31/24 10:00 11/03/24 16:15 50 MLS/HR Dextrose 50 ml PRN PRN IV 10/30/24 23:00 Diagnostic Test (Pha) 1 strip Q4H 10/31/24 20:00 11/03/24 16:25 1 STRIP Heparin Sodium/ Dextrose 250 ml @ 13 mls/hr [id number] IV 11/01/24 11:30 11/03/24 01:30 13 MLS/HR Doxycycline Hyclate 100 ml @ 50 mls/hr Q12H IV 11/02/24 17:45 11/03/24 17:28 50 MLS/HR Propofol 100 ml @ 2.109 mls/ hr Q24H IV 11/03/24 17:15 Examination Gen - no pallor, no icterus, no cyanosis, no clubbing, no LAD, no edema in the left lower extremity . Skin - Patients skin is warm and dry. HEENT - normocephalic, atraumatic, moist mucous membranes. Neck - full ROM, no LAD, no JVD Pulmonary - B/L equal breath sounds with mild rales, no wheezing, no stridor. cardiovascular - regular S1,S2 heard, no added sounds, no murmurs heard. peripheral pulses normal radial 2+, poor pedal pulses in the left side. capillary refill normal <2 secs in upper extremities GI - soft, abdomen. Bowel sounds normoactive Neurological - patient is off sedation and on mechanical ventilation with a RASS of -4 laboratory and microbiology Laboratory Tests 11/03/24 04:00 Test 11/03/24 04:00 Range/Units Serum Glucose 93 74-106 mg/dL Microbiology Date/Time Source Procedure Growth Status 11/02/24 20:00 Knee Fluid Gram Stain - Final Resulted 11/02/24 20:00 Knee Fluid Body Fluid Culture - Preliminary Resulted 10/29/24 11:50 Urine - Andre [place] Urine Culture - Final Complete 10/29/24 05:39 Nose MRSA Screen - Final Complete 10/28/24 12:00 Sputum Expectorated Sputum Gram Stain - Final Complete 10/28/24 12:00 Respiratory Culture - Final Serratia marcescens Proteus mirabilis Staphylococcus aureus Complete 10/28/24 12:00 Blood Blood Culture - Final NO GROWTH AFTER 5 DAYS OF INCUBATION. Complete Problem List/Assessment/Plan Problem List/Assessment/Plan Neurology Acute metabolic encephalopathy s/p cardiopulmonary arrest - head CT shows no acute intracranial abnormality, mild right ethmoid and sphenoid sinus disease - patient has been off sedation for the last 48 hrs, will be put on precedex to maintain a RASS 0 - on mechanical ventilation Cardiovascular S/p cardiopulmonary arrest with ROSC Cardiogenic shock NSTEMI likely type 1 H/o coronary artery disease without any intervention Sinus bradycardia, resolving Probable underlying heart failure, systolic versus diastolic - initial ECG showed sinus bradycardia with a PVCs and T-wave inversions in lead V3 V4, troponins elevated - weaned off norepinephrine on 10/31, early in the morning - on heparin drip as per ACS protocol - stable hemodynamics Respiratory Status post cardiopulmonary arrest on mechanical ventilation pulmonary vascular congestion likely due to cardiogenic shock Probable COPD Aspiration pneumonia - chest x-ray shows improved congestion bilaterally - FiO2 30%, peep of 5, Vt 500ml - sputum cultures growing Serratia, Proteus mirabilis, MSSA, patient on ceftriaxone and doxycycline Nephrology/metabolic WILMER on CKD likely due to acute tubular necrosis from shock Probable underlying CKD Anion gap metabolic acidosis is likely from lactic acidosis from shock - urine output improving - underwent hemodialysis on 11/03 GI Shock liver Possible infectious/inflammatory colitis Possible cholecystitis Mild colonic diverticulosis - transaminases trending down - abdominal ultrasound showed distended gallbladder with wall thickening and edema, mild dilatation of the CBD, increased echogenicity of bilateral kidneys - CT abdomen pelvis without contrast showed mild wall thickening throughout the large bowel, bladder wall thickening, distended gallbladder Infectious disease Sepsis likely from pneumonia - sputum cultures showing growth of Serratia, Proteus mirabilis, MSSA - blood cultures after 5 days of incubation showing no growth - urine culture showed no growth - patient on ceftriaxone and doxycycline Hematology Microcytic hypochromic anemia likely from iron-deficiency Possible anemia from CKD - monitor H&H DVT prophylaxis: On heparin drip PUD prophylaxis: On Protonix Right upper arm midline inserted on 11/02 Intubated on 10/28 Andre's catheter on 10/28 tube feedings Right IJ temporary dialysis catheter inserted on 11/02 Left IJ CVC inserted on 11/03 Goals of care discussed with the and the son for over 25 minutes. Code status: Full code Critical care time spent excluding procedures: 82 minutes Plan discussed with Dr. Nascimento Plan discussed with: Spouse, Son, Other (RN Griselda) My Orders My Orders Orders - BLANCA FRIEDMAN Procedure Category Date Status Time Chest Portable XY 11/02/24 Resulted 19:16 Chest Portable XY 11/02/24 Resulted 20:36 Dexmedetomidine Hcl PHA 11/03/24 In Process In D5w (Precedex) 10:30 Propofol (Diprivan) PHA 11/03/24 In Process 17:15 Chest Xray 1 View XY 11/04/24 Logged 04:00 Abg W/ Co-Ox RT 11/04/24 Logged 04:00 Lt Upper Dvt US 11/03/24 Logged 17:35 Chest Portable XY 11/03/24 Logged 18:13 Dietary Evaluation Review Comments: 1. consider TF Nepro @30ml/hr providing 58g Protein, 1274kcal 523ml free water, supporting 89% protein needs and 78% energy needs 2. Low ju score, reassess for wound healing when pt is nutritionally stablized Expected Outcomes/Goals: lessons uremic syndrome, gradual wt loss Date of Service: Nov 03, 2024 Billing Provider: JOSE A NASCIMENTO MD Common Visit Codes: 63193-YGTFCPAN CARE 30-74 MIN, 30659-[id number] CARE-EACH +30MIN BLANCA FRIEDMAN RESIDENT Nov 03, 2024 18:31 JOSE A NASCIMENTO MD Nov 04, 2024 15:29
--- NOTE | 2024-11-03 18:34 | DVHNC2 ---
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) Indication: Hypotension, Volume resuscitation Room prepared for procedure: Yes Translator/Interpreter performed hand hygien: Yes Maximal sterile barrier precau: Mask/Eye shield, Sterile gown, Cap, Sterlie gloves, Large sterlie drape Skin Preparation: Providine iodine Insertion site: Left, Internal jugular Central line catheter type: [id number] dialysis Number of lumens: 3 Central line exchanged over a: No Post Assessment: Chest X-Ray, Proper placement Informed consent obtained: Yes (from spouse) Date of Service: Nov 03, 2024 Billing Provider: JOSE A NASCIMENTO MD Common Visit Codes: PROCEDURE ONLY BLANCA FRIEDMAN RESIDENT Nov 03, 2024 18:34
--- NOTE | 2024-11-03 19:15 | DVH ---
CHEST RADIOGRAPH Indication: Central Line Placement Technique: Single frontal view of the chest was obtained Comparison: XY CHEST XRAY 1 VIEW on DOS: 11/03/24, XY CHEST PORTABLE on DOS: 11/02/24, XY CHEST PORTABLE on DOS: 11/02/24 FINDINGS: Lines and Tubes: Right IJ approach central venous catheter terminating over the proximal SVC. Left IJ approach central venous catheter terminating over the proximal to mid SVC. Endotracheal tube is in s atisfactory position. Enteric tube is in satisfactory position. Lungs: No focal consolidation. Pleura: No effusion. No pneumothorax. Cardiomediastinal contours: Unremarkable Bones: No acute osseous abnormality. Spinal stimulator wires Partially visualized terminating over on the midline lower thorax. IMPRESSION: Lines and tubes are in satisfactory position. No evidence of acute cardiopulmonary disease.
--- NOTE | 2024-11-03 19:18 | DVH ---
Procedure: US LT Upper DVT Study Date and Requested Time: 11/03/2024 06:33 PM History: SWELLING Comparison: None Technique: Multiple high resolution grayscale images with and without compression obtained of the lef t upper extremity veins, including the internal jugular, subclavian, axillary, brachial, radial, and ulnar veins. Augmentation performed as indicated. Color and spectral doppler flow images obtained as indicated. Findings: The left internal jugular vein is not visualized due to central line. The remainder of the deep veins of the left upper extremity are patent. Thrombus is noted within the left basilic vein. The left cep halic vein is patent. Impression: The right internal jugular vein is not visualized due to central line. Otherwise, No sonographic kinga dence of left upper extremity deep venous thrombosis. Thrombosis of the basilic vein which is a superficial vein. Insurance Follow Up Rep documented notification of SHRAVAN Villalobos.
[2024-11-04] VITALS (109 sets, daily range): BP systolic 110–165; BP diastolic 66–104; PULSE 61–103; RESP 20–37; TEMP 98.2–98.9; O2SAT 97–100
--- NOTE | 2024-11-04 03:22 | DVH ---
CHEST RADIOGRAPH Indication: on vent Technique: 1 view Comparison: XY CHEST PORTABLE on DOS: 11/03/24, XY CHEST XRAY 1 VIEW on DOS: 11/03/24, XY CHEST PORTABLE on DOS: 11/02/24, XY CHEST PORTABLE on DOS: 11/02/24, XY CHEST PORTABLE on DOS: 11/02/24 FINDINGS: Lines and Tubes: Unchanged. Lungs: Bibasilar airspace disease with silhouetting of the left hemidiaphragm. No new consolidation. Pleura: No large pleural effusion or pneumothorax. Cardiomediastinal contours: Unchanged. Other: Unchanged. IMPRESSION: 1. No change from the previous exam.
[2024-11-04 03:41] LABS: Anion Gap 11 (5-15); Carbon Dioxide 27 mmol/L (20-31); Chloride 104 mmol/L (98-107); Potassium 3.8 mmol/L (3.5-5.1); Sodium 142 mmol/L (136-145)
[2024-11-04 03:43] LABS: Calcium 9.0 mg/dL (8.7-10.4)
[2024-11-04 03:48] LABS: BUN/Creatinine Ratio 11.0 (10.0-20.0); Glucose 104 mg/dL (74-106)
[2024-11-04 03:52] LABS: Blood Urea Nitrogen 60 mg/dL (9-23); Hemoglobin 9.3 g/dL (13.5-17.5)
[2024-11-04 03:54] LABS: Hematocrit 29.8 % (41.0-53.0); Mean Corpuscular Hemoglobin 22.1 pg (28.0-32.0); Mean Corpuscular Volume 71.0 fL (80.0-100.0)
[2024-11-04 04:01] LABS: INR 1.14 (0.9-1.15); Partial Thromboplastin Time 49.0 SEC (24.5-34.5); Prothrombin Time 11.9 sec (9.3-11.8)
[2024-11-04 04:26] LABS: Total Cells Counted 100.0 (100)
[2024-11-04 04:28] LABS: Ovalocytes FEW
[2024-11-04] MEDS: SODIUM CHL 0.9% 1000 ML BAG XX ONE (07:00)
--- NOTE | 2024-11-04 08:05 | ECG ---
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
[2024-11-04 09:03] LABS: Base Excess 2.4 mmol/L (-2.0-3.0)
[2024-11-04] MEDS: FUROSEMIDE 100 MG/10ML VIAL IV SCH (09:40)
--- NOTE | 2024-11-04 11:20 | DVHPN2 ---
Progress Note - Dictate Date Seen: Nov 04, 2024 Medical Necessity Reason Pt with a Central, PICC or Fol: Yes The following are medically ne: Central Line, Andre Catheter Reason for andre catheter: Strict I&O Subjective Mr. Mccall is a 72 years old gentleman with a history of hypertension, coronary artery disease, the patient was brought to the [facility] on 10/28/2024 with a chief company of cardiopulmonary arrest with a estimated downtime of 20 minutes. I have seen and examined the patient, talked to his nurse, his son in the room. He is intubated, eyes are open, but nonresponsive to visual threat, sudden loud noise or verbal stimuli His son claimed the patient was respond to his voice (I could not confirm) Urine culture, 10/29/2024 Blood culture, 10/28/2024: No growth ABG, 10/29/2024: Metabolic acidosis, hypoxia, 10/30/2024: Metabolic acidosis, hypoxia, 11/02/2024: Hypoxia, compensated metabolic acidosis WBC/HB/PLT/MCV, 11/02/2024,10.4/9.2/107/71.6 PT/INR/PTT, 10/31/2024: 30.4/1.3/84.9, 11/02/2024: 11.8/1.13/60 BUN/CR, 10/28/2024: 55/4.69, 11/02/24: 70.9/7.28 GFR, 11/02/24: 8 Lactic acid, 10/28/24: 7.7, 4.9, 2.6 TBI/AST/ALT/AP, 11/02/2024: 0.2/87/472/52 TG/HDL/LDL/HDL, 10/29/24: 80 8/78/43/23 Chest x-ray, 10/28/2024: 1. No acute intracranial process. 2. Mechanical ventilation with partially visualized Endotracheal tube and Left NG tube. 3. Mild right ethmoid and sphenoid sinus disease. 4. 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 Chest x-ray, 11/02/2024: 1. Hemodialysis catheter in place from the right with the tip in the superior vena cava above the right atrium. 2. Endotracheal tube in place 4.7 cm above the teresa. 3. Questionable PICC line in the right arm in place in the axillary vein. 4. Enteric tube not visualized. CT head, : 1. No acute intracranial process. 2. Mechanical ventilation with partially visualized Endotracheal tube and Left NG tube. 3. Mild right ethmoid and sphenoid sinus disease. 4. 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 No evidence of acute intracranial abnormality. 2. Acute sinusitis vital signs Vital Sign Date Time Temp Pulse Resp B/P (MAP) Pulse Ox O2 Delivery O2 Flow Rate FiO2 11/04/24 09:53 79 24 133/86 (102) 98 30 11/04/24 04:00 98.2 98.2 11/03/24 20:00 Mechanical Ventilator+ 11/03/24 10:00 30.0 Total Intake and Output 11/03/24 11/03/24 11/04/24 15:00 23:00 07:00 Intake Total 112.788 ml 363 ml 112 ml Output Total 1000 ml 500 ml 400 ml Balance -887.212 ml -137 ml -288 ml medications Current Medications Medications Dose Ordered Sig/Sarita Route Start Time Stop Time Status Last Admin Dose Admin Norepinephrine Bitartrate 250 ml @ 3.75 mls/hr Q24H IV 10/28/24 15:00 10/30/24 05:56 3.75 MLS/HR Sodium Chloride 10 ml Q8HR IV 10/28/24 22:00 11/04/24 11:04 10 ML Pantoprazole Sodium 40 mg DAILY IV 10/29/24 10:00 11/04/24 09:40 40 MG Dopamine HCl/ Dextrose 250 ml @ 15.375 mls/ hr [id number] IV 10/29/24 13:15 10/29/24 14:00 15.375 MLS/HR Albuterol 2.5 mg Q6HR NEB 10/30/24 06:00 11/04/24 06:45 2.5 MG Ipratropium [place] 0.5 mg Q6HR NEB 10/30/24 06:00 11/04/24 06:45 0.5 MG Enteral Nutritional Formula 1,000 ml 30ML/HR GT 10/30/24 13:15 11/03/24 09:52 1,000 ML Ceftriaxone Sodium/Dextrose 50 ml @ 50 mls/hr DAILY IV 10/31/24 10:00 11/04/24 09:41 50 MLS/HR Dextrose 50 ml PRN PRN IV 10/30/24 23:00 Diagnostic Test (Pha) 1 strip Q4H 10/31/24 20:00 11/04/24 09:41 1 STRIP Heparin Sodium/ Dextrose 250 ml @ 13 mls/hr [id number] IV 11/01/24 11:30 11/03/24 21:23 13 MLS/HR Doxycycline Hyclate 100 ml @ 50 mls/hr Q12H IV 11/02/24 17:45 11/04/24 05:12 50 MLS/HR Propofol 100 ml @ 2.109 mls/ hr Q24H IV 11/03/24 17:15 Furosemide 60 mg DAILY IV 11/04/24 10:00 11/04/24 09:40 60 MG objective The patient is well-nourished and well-developed with no distress. The patient is intubated Status post right BKA MENTAL STATUS: Not responsive to the surroundings, CRANIAL NERVES: Pupils are equal, round and reactive, small. There are corneal reflexes and doll's eyes phenomenon. No signs of facial weakness. There are gagging or coughing reflexes SENSATION: No responses to pain stimuli. MOTOR: Normal tone in the upper and lower extremity. Normal muscle bulk. No fasciculations. No spontaneous movement. REFLEXES: Deep tendon reflexes are symmetrical. No pathological reflexes. CEREBELLAR/COORDINATION: Deferred GAIT/STATION: deferred laboratory and microbiology Laboratory Tests 11/04/24 02:40 Test 11/04/24 02:40 Range/Units Serum Glucose 104 74-106 mg/dL Problem List Coma, unremarkable follow-up CT brain Metabolic encephalopathy Hypoxic encephalopathy Toxic encephalopathy Cardiopulmonary arrest/status post CPR Respiratory failure Metabolic acidosis Hypoxia Hypokalemia Shocked liver Assessment/Plan Monitoring Supportive treatment Follow-up labs EEG ICU care Stabilize vitals Respiratory support/vent management Oxygen IV antibiotics More recommendation per clinical course This medical document was created using an electronic medical record system with Omni-ID[employer] system. Although this document has been carefully reviewed, there may still be some phonetic and typographical errors. These areas are purely typographical due to imperfections of the software programs, and do not reflect any compromise in the patient's medical care. Prognosis guarded Dietary Evaluation Review Comments: 1. consider TF Nepro @30ml/hr providing 58g Protein, 1274kcal 523ml free water, supporting 89% protein needs and 78% energy needs 2. Low ju score, reassess for wound healing when pt is nutritionally stablized Expected Outcomes/Goals: lessons uremic syndrome, gradual wt loss Plan discussed with: Son, Other Critical Care Time(min): 30 TRACEY FUNK MD Nov 04, 2024 11:20
--- NOTE | 2024-11-04 16:28 | DVHPN2 ---
Consult Progress Note Subjective Other Systems: Patient remains in normal sinus rhythm on cardiac cath rn. Patient off of sedations, not appropriately responding to verbal commands Objective vital signs Vital Sign Date Time Temp Pulse Resp B/P (MAP) Pulse Ox O2 Delivery O2 Flow Rate FiO2 11/04/24 16:14 30 11/04/24 16:00 74 24 123/75 (91) 100 11/04/24 14:45 98.2 98.2 11/04/24 10:00 Mechanical Ventilator 30.0 Total Intake and Output 11/03/24 11/03/24 11/04/24 15:00 23:00 07:00 Intake Total 112.788 ml 363 ml 125 ml Output Total 1000 ml 500 ml 400 ml Balance -887.212 ml -137 ml -275 ml medications Current Medications Medications Dose Ordered Sig/Sarita Route Start Time Stop Time Status Last Admin Dose Admin Norepinephrine Bitartrate 250 ml @ 3.75 mls/hr Q24H IV 10/28/24 15:00 10/30/24 05:56 3.75 MLS/HR Sodium Chloride 10 ml Q8HR IV 10/28/24 22:00 11/04/24 11:04 10 ML Pantoprazole Sodium 40 mg DAILY IV 10/29/24 10:00 11/04/24 09:40 40 MG Dopamine HCl/ Dextrose 250 ml @ 15.375 mls/ hr [id number] IV 10/29/24 13:15 10/29/24 14:00 15.375 MLS/HR Albuterol 2.5 mg Q6HR NEB 10/30/24 06:00 11/04/24 11:52 2.5 MG Ipratropium [place] 0.5 mg Q6HR NEB 10/30/24 06:00 11/04/24 11:52 0.5 MG Enteral Nutritional Formula 1,000 ml 30ML/HR GT 10/30/24 13:15 11/03/24 09:52 1,000 ML Ceftriaxone Sodium/Dextrose 50 ml @ 50 mls/hr DAILY IV 10/31/24 10:00 11/04/24 09:41 50 MLS/HR Dextrose 50 ml PRN PRN IV 10/30/24 23:00 Heparin Sodium/ Dextrose 250 ml @ 13 mls/hr [id number] IV 11/01/24 11:30 11/03/24 21:23 13 MLS/HR Doxycycline Hyclate 100 ml @ 50 mls/hr Q12H IV 11/02/24 17:45 11/04/24 05:12 50 MLS/HR Propofol 100 ml @ 2.109 mls/ hr Q24H IV 11/03/24 17:15 Furosemide 60 mg DAILY IV 11/04/24 10:00 11/04/24 09:40 60 MG Diagnostic Test (Pha) 1 strip Q6H 11/04/24 18:00 Examination: GENERAL:Abnormal, LUNGS:Abnormal (Mechanical ventilation), CVS:Normal, NEURO:Abnormal (Off sedations, not responsive to verbal commands) laboratory and microbiology Laboratory Tests 11/04/24 02:40 Test 11/04/24 02:40 Range/Units Serum Glucose 104 74-106 mg/dL Problem List/Assessment/Plan Problem List/Assessment/Plan Cardiopulmonary arrest status post CPR and return of spontaneous circulation NSTEMI, likely type 1 Shock, possibly mixed cardiogenic and septic History myocardial infarction Mild tricuspid valve regurgitation History of coronary artery disease not amenable to catheter based intervention Acute kidney injury, now on hemodialysis Shock liver Heavy tobacco use Plan/Recommendations (Dr. Landeros): * Transthoracic echocardiogram reveals EF 50% * Heparin drip per ACS protocol * Eventual coronary angiogram if neurological function intact * Close Cardiac surveillance; notify cardiology team immediately for any ECG changes * Hold lipid-lowering agent given severely elevated liver enzymes Case discussed with . NSTEMI, likely type 1. Estimated downtime approximately 20 minutes before ROSC achieved. The patient would benefit from a coronary angiogram with left heart catheterization with proven intact neurological function. Cardiology will continue to follow up. Thank you for allowing us to care for this patient. Please call with any questions or concerns. Critical care time spent: 44 minutes.This medical document was created using an electronic medical record system with voice recognition software and computerized dictation system. Although this document has been carefully reviewed, there might still be some phonetic and typographical errors. Occasional wrong-word or ``sound-alike substitutions may have occurred due to the inherent limitations of voice recognition software. These areas are purely typographical due to imperfections of the software programs and do not reflect any compromise in the patient's medical care. Please read the chart carefully and recognize, using context, where these substitutions have occurred. Plan discussed with: Spouse, Other (Bedside RN) Dietary Evaluation Review Comments: 1. consider TF Nepro @30ml/hr providing 58g Protein, 1274kcal 523ml free water, supporting 89% protein needs and 78% energy needs 2. Low ju score, reassess for wound healing when pt is nutritionally stablized Expected Outcomes/Goals: lessons uremic syndrome, gradual wt loss Date of Service: Nov 04, 2024 Billing Provider: ROGER PENA Common Visit Codes: 34807-[id number] CARE 30-74 MIN ROGER PENA Nov 04, 2024 16:28
[2024-11-04] MEDS: ACCU-CHEK COMFORT CURVE STRIP VI SCH (16:54)
--- NOTE | 2024-11-04 17:21 | DVHPN2 ---
Progress Note Date Seen: Nov 04, 2024 Medical Necessity Reason Pt with a Central, PICC or Fol: Yes The following are medically ne: Central Line, Andre Catheter Reason for andre catheter: Strict I&O Subjective Patient reports: Other Review of Systems: Deferred Objective vital signs Vital Sign Date Time Temp Pulse Resp B/P (MAP) Pulse Ox O2 Delivery O2 Flow Rate FiO2 11/04/24 17:00 92 33 160/100 (120) 100 11/04/24 16:35 30 11/04/24 16:15 98.9 98.9 11/04/24 10:00 Mechanical Ventilator 30.0 Total Intake and Output 11/03/24 11/03/24 11/04/24 15:00 23:00 07:00 Intake Total 112.788 ml 363 ml 125 ml Output Total 1000 ml 500 ml 400 ml Balance -887.212 ml -137 ml -275 ml medications Current Medications Medications Dose Ordered Sig/Sarita Route Start Time Stop Time Status Last Admin Dose Admin Norepinephrine Bitartrate 250 ml @ 3.75 mls/hr Q24H IV 10/28/24 15:00 10/30/24 05:56 3.75 MLS/HR Sodium Chloride 10 ml Q8HR IV 10/28/24 22:00 11/04/24 11:04 10 ML Pantoprazole Sodium 40 mg DAILY IV 10/29/24 10:00 11/04/24 09:40 40 MG Dopamine HCl/ Dextrose 250 ml @ 15.375 mls/ hr [id number] IV 10/29/24 13:15 10/29/24 14:00 15.375 MLS/HR Albuterol 2.5 mg Q6HR NEB 10/30/24 06:00 11/04/24 11:52 2.5 MG Ipratropium [place] 0.5 mg Q6HR NEB 10/30/24 06:00 11/04/24 11:52 0.5 MG Enteral Nutritional Formula 1,000 ml 30ML/HR GT 10/30/24 13:15 11/03/24 09:52 1,000 ML Ceftriaxone Sodium/Dextrose 50 ml @ 50 mls/hr DAILY IV 10/31/24 10:00 11/04/24 09:41 50 MLS/HR Dextrose 50 ml PRN PRN IV 10/30/24 23:00 Heparin Sodium/ Dextrose 250 ml @ 13 mls/hr [id number] IV 11/01/24 11:30 11/03/24 21:23 13 MLS/HR Doxycycline Hyclate 100 ml @ 50 mls/hr Q12H IV 11/02/24 17:45 11/04/24 16:54 50 MLS/HR Propofol 100 ml @ 2.109 mls/ hr Q24H IV 11/03/24 17:15 Furosemide 60 mg DAILY IV 11/04/24 10:00 11/04/24 09:40 60 MG Diagnostic Test (Pha) 1 strip Q6H 11/04/24 18:00 11/04/24 16:54 1 STRIP Examination: MSK:Abnormal, SKIN:Abnormal, NEURO:Abnormal laboratory and microbiology Laboratory Tests 11/04/24 02:40 Test 11/04/24 02:40 Range/Units Serum Glucose 104 74-106 mg/dL Microbiology Date/Time Source Procedure Growth Status 11/02/24 20:00 Knee Fluid Gram Stain - Final Resulted 11/02/24 20:00 Knee Fluid Body Fluid Culture - Preliminary Resulted 10/29/24 11:50 Urine - Andre Port Urine Culture - Final Complete 10/29/24 05:39 Nose MRSA Screen - Final Complete 10/28/24 12:00 Sputum Expectorated Sputum Gram Stain - Final Complete 10/28/24 12:00 Respiratory Culture - Final Serratia marcescens Proteus mirabilis Staphylococcus aureus Complete 10/28/24 12:00 Blood Blood Culture - Final NO GROWTH AFTER 5 DAYS OF INCUBATION. Complete Problem List/Assessment/Plan Problem List/Assessment/Plan Acute kidney injury with acute tubular necrosis Hyperkalemia Acute respiratory failure Altered mental status Cardiac arrest recs HD tomorrow non oliguric Plan discussed with: Other Dietary Evaluation Review Comments: 1. consider TF Nepro @30ml/hr providing 58g Protein, 1274kcal 523ml free water, supporting 89% protein needs and 78% energy needs 2. Low ju score, reassess for wound healing when pt is nutritionally stablized Expected Outcomes/Goals: lessons uremic syndrome, gradual wt loss JESUS BOLTON MD Nov 04, 2024 17:21
[2024-11-04] MEDS ORDERED: ARTIFICIAL TEARS 15ml EACHEYE PRN (18:00)
--- NOTE | 2024-11-04 19:57 | DVHPNRES ---
Progress Note Date Seen: Nov 04, 2024 Resident Creating Document: JHBLANCA HALE RESIDENT Medical Necessity Reason Pt with a Central, PICC or Fol: Yes The following are medically ne: Central Line, Andre Catheter Reason for andre catheter: Strict I&O Subjective Review of Systems 11/04- patient seen and examined at the bedside. Sedation has been off since Wednesday 11/01. Patient is more responsive as compared to yesterday, opening his eyes to painful physical stimulation. Minimal ventilator settings with a FiO2 30%, peep of 5. Urine output increased to 1900 mL on 11/04. Chest x-ray showed improved congestion. Patient did not have any fever overnight[place] [id number] Objective vital signs Vital Sign Date Time Temp Pulse Resp B/P (MAP) Pulse Ox O2 Delivery O2 Flow Rate FiO2 11/04/24 18:45 85 24 127/74 (91) 100 11/04/24 18:20 30 11/04/24 16:15 98.9 98.9 11/04/24 10:00 Mechanical Ventilator 30.0 Total Intake and Output 11/03/24 11/03/24 11/04/24 15:00 23:00 07:00 Intake Total 112.788 ml 363 ml 125 ml Output Total 1000 ml 500 ml 400 ml Balance -887.212 ml -137 ml -275 ml medications Current Medications Medications Dose Ordered Sig/Sarita Route Start Time Stop Time Status Last Admin Dose Admin Norepinephrine Bitartrate 250 ml @ 3.75 mls/hr Q24H IV 10/28/24 15:00 10/30/24 05:56 3.75 MLS/HR Sodium Chloride 10 ml Q8HR IV 10/28/24 22:00 11/04/24 11:04 10 ML Pantoprazole Sodium 40 mg DAILY IV 10/29/24 10:00 11/04/24 09:40 40 MG Dopamine HCl/ Dextrose 250 ml @ 15.375 mls/ hr [id number] IV 10/29/24 13:15 10/29/24 14:00 15.375 MLS/HR Albuterol 2.5 mg Q6HR NEB 10/30/24 06:00 11/04/24 18:20 2.5 MG Ipratropium [place] 0.5 mg Q6HR NEB 10/30/24 06:00 11/04/24 18:20 0.5 MG Enteral Nutritional Formula 1,000 ml 30ML/HR GT 10/30/24 13:15 11/03/24 09:52 1,000 ML Ceftriaxone Sodium/Dextrose 50 ml @ 50 mls/hr DAILY IV 10/31/24 10:00 11/04/24 09:41 50 MLS/HR Dextrose 50 ml PRN PRN IV 10/30/24 23:00 Heparin Sodium/ Dextrose 250 ml @ 13 mls/hr [id number] IV 11/01/24 11:30 11/03/24 21:23 13 MLS/HR Doxycycline Hyclate 100 ml @ 50 mls/hr Q12H IV 11/02/24 17:45 11/04/24 16:54 50 MLS/HR Propofol 100 ml @ 2.109 mls/ hr Q24H IV 11/03/24 17:15 Furosemide 60 mg DAILY IV 11/04/24 10:00 11/04/24 09:40 60 MG Diagnostic Test (Pha) 1 strip Q6H 11/04/24 18:00 11/04/24 16:54 1 STRIP Morphine Sulfate 2 mg Q4HPRN PRN IV 11/04/24 17:45 Artificial Tears 1 drop Q6HP PRN EACHEYE 11/04/24 18:00 Examination Gen - no pallor, no icterus, no cyanosis, no clubbing, no LAD, no edema in the left lower extremity . Skin - Patients skin is warm and dry. HEENT - normocephalic, atraumatic, moist mucous membranes. Neck - full ROM, no LAD, no JVD Pulmonary - B/L equal breath sounds with mild rales, no wheezing, no stridor. cardiovascular - regular S1,S2 heard, no added sounds, no murmurs heard. peripheral pulses normal radial 2+, poor pedal pulses in the left side. capillary refill normal <2 secs in upper extremities GI - soft, abdomen. Bowel sounds normoactive Neurological - patient is off sedation and on mechanical ventilation. laboratory and microbiology Laboratory Tests 11/04/24 02:40 Test 11/04/24 02:40 Range/Units Serum Glucose 104 74-106 mg/dL Microbiology Date/Time Source Procedure Growth Status 11/02/24 20:00 Knee Fluid Gram Stain - Final Resulted 11/02/24 20:00 Knee Fluid Body Fluid Culture - Preliminary Resulted 10/29/24 11:50 Urine - Andre Port Urine Culture - Final Complete 10/29/24 05:39 Nose MRSA Screen - Final Complete 10/28/24 12:00 Sputum Expectorated Sputum Gram Stain - Final Complete 10/28/24 12:00 Respiratory Culture - Final Serratia marcescens Proteus mirabilis Staphylococcus aureus Complete 10/28/24 12:00 Blood Blood Culture - Final NO GROWTH AFTER 5 DAYS OF INCUBATION. Complete Problem List/Assessment/Plan Problem List/Assessment/Plan Neurology Acute metabolic encephalopathy s/p cardiopulmonary arrest - head CT shows no acute intracranial abnormality, mild right ethmoid and sphenoid sinus disease - patient has been off sedation for the last 72 hrs, IV morphine 2 mg q.4 hours for pain - on mechanical ventilation - EEG report pending Cardiovascular S/p cardiopulmonary arrest with ROSC Cardiogenic shock NSTEMI likely type 1 H/o coronary artery disease without any intervention Sinus bradycardia, resolving Probable underlying heart failure, systolic versus diastolic - initial ECG showed sinus bradycardia with a PVCs and T-wave inversions in lead V3 V4, troponins elevated - weaned off norepinephrine on 10/31, early in the morning - on heparin drip as per ACS protocol - stable hemodynamics Respiratory Status post cardiopulmonary arrest on mechanical ventilation pulmonary vascular congestion likely due to cardiogenic shock Probable COPD Aspiration pneumonia - chest x-ray shows improved congestion bilaterally - FiO2 30%, peep of 5, Vt 500ml - sputum cultures growing Serratia, Proteus mirabilis, MSSA, patient on ceftriaxone and doxycycline Nephrology/metabolic WILMER on CKD likely due to acute tubular necrosis from shock Probable underlying CKD Anion gap metabolic acidosis is likely from lactic acidosis from shock - urine output improving - underwent hemodialysis on 11/03 GI Shock liver Possible infectious/inflammatory colitis Possible cholecystitis Mild colonic diverticulosis - transaminases trending down - abdominal ultrasound showed distended gallbladder with wall thickening and edema, mild dilatation of the CBD, increased echogenicity of bilateral kidneys - CT abdomen pelvis without contrast showed mild wall thickening throughout the large bowel, bladder wall thickening, distended gallbladder Infectious disease Sepsis likely from pneumonia - sputum cultures showing growth of Serratia, Proteus mirabilis, MSSA - blood cultures after 5 days of incubation showing no growth - urine culture showed no growth - patient on ceftriaxone and doxycycline Hematology Microcytic hypochromic anemia likely from iron-deficiency Possible anemia from CKD - monitor H&H DVT prophylaxis: On heparin drip PUD prophylaxis: On Protonix Right upper arm midline inserted on 11/02 Intubated on 10/28 Andre's catheter on 10/28 tube feedings Right IJ temporary dialysis catheter inserted on 11/02 Left IJ CVC inserted on 11/03 Goals of care discussed with the and the son at bedside. Code status: Full code Critical care time spent excluding procedures: 81 minutes Plan discussed with Dr. Nascimento Plan discussed with: Spouse, Son, Other (SHRAVAN Urbina) My Orders My Orders Orders - BLANCA FRIEDMAN Procedure Category Date Status Time Morphine Sulfate PHA 11/04/24 In Process Injection 17:45 Artificial Tear 15ml PHA 11/04/24 In Process Opthalmic (Tears Na 18:00 Complete Blood Count LAB 11/05/24 Verified 04:00 Basic Metabolic Panel LAB 11/05/24 Verified 04:00 Magnesium LAB 11/05/24 Verified 04:00 Chest Portable XY 11/05/24 Logged 04:00 Abg W/ Co-Ox RT 11/05/24 Verified 04:00 Dietary Evaluation Review Comments: 1. consider TF Nepro @30ml/hr providing 58g Protein, 1274kcal 523ml free water, supporting 89% protein needs and 78% energy needs 2. Low ju score, reassess for wound healing when pt is nutritionally stablized Expected Outcomes/Goals: lessons uremic syndrome, gradual wt loss Date of Service: Nov 04, 2024 Billing Provider: JOSE A NASCIMENTO MD Common Visit Codes: 95540-QTGFPEHG CARE 30-74 MIN, 09142-[id number] CARE-EACH +30MIN BLANCA FRIEDMAN Nov 04, 2024 19:57 JOSE A NASCIMENTO MD Nov 05, 2024 12:36
[2024-11-04] MEDS: MORPHINE SULFATE INJ 2 MG/ml SYRG IV PRN (20:06)
[2024-11-05] VITALS (106 sets, daily range): BP systolic 96–161; BP diastolic 56–96; PULSE 51–98; RESP 12–30; TEMP 98–99.7; O2SAT 97–100
[2024-11-05 03:04] LABS: Hemoglobin 9.2 g/dL (13.5-17.5); Mean Corpuscular Hemoglobin 22.4 pg (28.0-32.0); Nucleated Red Blood Cells % 0.0 %
[2024-11-05 03:06] LABS: Hematocrit 29.0 % (41.0-53.0); Mean Corpuscular Volume 70.5 fL (80.0-100.0)
[2024-11-05 03:14] LABS: Chloride 104 mmol/L (98-107); Sodium 144 mmol/L (136-145)
[2024-11-05 03:15] LABS: Anion Gap 13 (5-15); Calcium 9.3 mg/dL (8.7-10.4); Carbon Dioxide 27 mmol/L (20-31)
[2024-11-05 03:19] LABS: INR 1.13 (0.9-1.15); Partial Thromboplastin Time 47.8 SEC (24.5-34.5); Prothrombin Time 11.8 sec (9.3-11.8)
[2024-11-05 03:20] LABS: BUN/Creatinine Ratio 12.7 (10.0-20.0); Blood Urea Nitrogen 70 mg/dL (9-23); Glucose 134 mg/dL (74-106); Magnesium 2.0 mg/dL (1.6-2.6); Potassium 3.4 mmol/L (3.5-5.1)
[2024-11-05] MEDS ORDERED: HEPARIN DRIP/D5W 100UNITS/ML 250 ML IV SCH (05:30)
[2024-11-05] MEDS: HEPARIN DRIP/D5W 100UNITS/ML 250 ML IV SCH ×2 (05:30→09:44)
--- NOTE | 2024-11-05 05:49 | DVH ---
CHEST RADIOGRAPH Indication: intubated Technique: Single frontal view of the chest was obtained COMPARISON: XY CHEST XRAY 1 VIEW on DOS: 11/04/24, XY CHEST PORTABLE on DOS: 11/03/24, XY CHEST XRAY 1 EW on DOS: 11/03/24, XY CHEST PORTABLE on DOS: 11/02/24, XY CHEST PORTABLE on DOS: 11/02/24 FINDINGS: Lines and Tubes: Endotracheal tube, right and left central venous catheter is in satisfactory positio n Lungs: Mild congestion Pleura: No effusion. No pneumothorax. Cardiomediastinal contours: Unremarkable Bones: Unremarkable IMPRESSION: Lines and tubes in satisfactory position. No significant interval change.
[2024-11-05 07:04] LABS: INR 1.13 (0.9-1.15); Partial Thromboplastin Time 46.1 SEC (24.5-34.5); Prothrombin Time 11.8 sec (9.3-11.8)
[2024-11-05 07:52] LABS: Base Excess 3.5 mmol/L (-2.0-3.0)
[2024-11-05] MEDS: POTASSIUM CHL 20MEQ/100ML 100 ML IV ONE (10:00)
--- NOTE | 2024-11-05 10:34 | DVHPN2 ---
Consult Progress Note Date Seen: Nov 05, 2024 Objective vital signs Vital Sign Date Time Temp Pulse Resp B/P (MAP) Pulse Ox O2 Delivery O2 Flow Rate FiO2 11/05/24 09:59 121/69 11/05/24 07:39 60 24 100 30 11/05/24 04:00 99.7 99.7 11/04/24 20:00 Mechanical Ventilator+ 11/04/24 10:00 30.0 Total Intake and Output 11/04/24 11/04/24 11/05/24 15:00 23:00 07:00 Intake Total 254 ml 254 ml 481 ml Output Total 1200 ml 450 ml Balance 254 ml -946 ml 31 ml medications Current Medications Medications Dose Ordered Sig/Sarita Route Start Time Stop Time Status Last Admin Dose Admin Norepinephrine Bitartrate 250 ml @ 3.75 mls/hr Q24H IV 10/28/24 15:00 10/30/24 05:56 3.75 MLS/HR Sodium Chloride 10 ml Q8HR IV 10/28/24 22:00 11/05/24 05:05 10 ML Pantoprazole Sodium 40 mg DAILY IV 10/29/24 10:00 11/05/24 09:59 40 MG Dopamine HCl/ Dextrose 250 ml @ 15.375 mls/ hr [id number] IV 10/29/24 13:15 10/29/24 14:00 15.375 MLS/HR Albuterol 2.5 mg Q6HR NEB 10/30/24 06:00 11/05/24 06:36 2.5 MG Ipratropium [place] 0.5 mg Q6HR NEB 10/30/24 06:00 11/05/24 06:36 0.5 MG Enteral Nutritional Formula 1,000 ml 30ML/HR GT 10/30/24 13:15 11/03/24 09:52 1,000 ML Ceftriaxone Sodium/Dextrose 50 ml @ 50 mls/hr DAILY IV 10/31/24 10:00 11/05/24 10:00 50 MLS/HR Dextrose 50 ml PRN PRN IV 10/30/24 23:00 Doxycycline Hyclate 100 ml @ 50 mls/hr Q12H IV 11/02/24 17:45 11/05/24 05:04 50 MLS/HR Propofol 100 ml @ 2.109 mls/ hr Q24H IV 11/03/24 17:15 Furosemide 60 mg DAILY IV 11/04/24 10:00 11/05/24 09:59 60 MG Diagnostic Test (Pha) 1 strip Q6H 11/04/24 18:00 11/05/24 05:05 1 STRIP Artificial Tears 1 drop Q6HP PRN EACHEYE 11/04/24 18:00 Heparin Sodium/ Dextrose 250 ml @ 15 mls/hr [id number] IV 11/05/24 09:30 11/05/24 09:44 15 MLS/HR Examination: GENERAL:Abnormal, LUNGS:Abnormal (Endotracheally intubated 30% FiO2. +Crackles), CVS:Normal, MSK:Abnormal (Right BKA), NEURO:Abnormal (Off sedation. +cough reflex, reactive pupils) laboratory and microbiology Laboratory Tests 11/05/24 02:25 Test 11/05/24 02:25 Range/Units Serum Glucose 134 H 74-106 mg/dL Problem List/Assessment/Plan Problem List/Assessment/Plan Nonb-ST elevation myocardial infarction Cardiopulmonary arrest status post CPR with ROSC Shock, possibly mixed cardiogenic and septic History myocardial infarction Mild tricuspid valve regurgitation History of coronary artery disease not amenable to catheter based intervention Acute kidney injury, now on hemodialysis Suspected anoxic brain injury Shock liver Heavy tobacco use Thrombocytopenia Plan/Recommendations (Dr. Landeros) * Transthoracic echocardiogram reveals EF 50% * Heparin drip per ACS protocol and single-antiplatelet therapy * Monitor H&H and platelet count closely * Close Cardiac surveillance; notify cardiology team immediately for any ECG changes * Hold lipid-lowering agent given severely elevated liver enzymes * Neurological and nephrology recommendations The patient could benefit from a coronary angiogram with left heart catheterization with proven intact neurological function. Cardiology will continue to follow up. Thank you for allowing us to care for this patient. Please call with any questions or concerns. Critical care time spent: 40 minutes.This medical document was created using an electronic medical record system with voice recognition software and computerized dictation system. Although this document has been carefully reviewed, there might still be some phonetic and typographical errors. Occasional wrong-word or ``sound-alike substitutions may have occurred due to the inherent limitations of voice recognition software. These areas are purely typographical due to imperfections of the software programs and do not reflect any compromise in the patient's medical care. Please read the chart carefully and recognize, using context, where these substitutions have occurred. Plan discussed with: Other Dietary Evaluation Review Comments: 1. consider TF Nepro @30ml/hr providing 58g Protein, 1274kcal 523ml free water, supporting 89% protein needs and 78% energy needs 2. Low ju score, reassess for wound healing when pt is nutritionally stablized Expected Outcomes/Goals: lessons uremic syndrome, gradual wt loss Date of Service: Nov 05, 2024 Billing Provider: MC TRAORE Cardiology Common Codes: 60308-[id number] CARE 30-74 MIN MC TRAORE Nov 05, 2024 10:34
--- NOTE | 2024-11-05 11:00 | MEDREC ---
[facility] ASP Intervention Section I [facility] ASP Intervention: Deescalate AB based on CS (Please consider D/C Doxy based on final knee fluid culture. In addition, there is limited evidence of doxy efficacy in treating MRSA pneumonia) IGNAICO SE[facility]IRA [facility] Nov 05, 2024 11:00
--- NOTE | 2024-11-05 11:05 | DVHPN2 ---
Progress Note - Dictate Date Seen: Nov 05, 2024 Medical Necessity Reason Pt with a Central, PICC or Fol: Yes The following are medically ne: Central Line, Andre Catheter Reason for andre catheter: Strict I&O Subjective Mr. Mccall is a 72 years old gentleman with a history of hypertension, coronary artery disease, the patient was brought to the [facility] on 10/28/2024 with a chief company of cardiopulmonary arrest with a estimated downtime of 20 minutes. I have seen and examined the patient, talked to his nurse, family in the room. They want to know the EEG report, but I have difficulty accessing the EEG five. He has lab is aware of the problem and will have the problem fixed He is intubated, eyes are open, but nonresponsive to visual threat, sudden loud noise or verbal stimuli Urine culture, 10/29/2024 Blood culture, 10/28/2024: No growth ABG, 10/29/2024: Metabolic acidosis, hypoxia, 10/30/2024: Metabolic acidosis, hypoxia, 11/02/2024: Hypoxia, compensated metabolic acidosis WBC/HB/PLT/MCV, 11/02/2024,10.4/9.2/107/71.6 PT/INR/PTT, 10/31/2024: 30.4/1.3/84.9, 11/02/2024: 11.8/1.13/60 BUN/CR, 10/28/2024: 55/4.69, 11/02/24: 70.9/7.28 GFR, 11/02/24: 8 Lactic acid, 10/28/24: 7.7, 4.9, 2.6 TBI/AST/ALT/AP, 11/02/2024: 0.2/87/472/52 TG/HDL/LDL/HDL, 10/29/24: 80 8/78/43/23 Chest x-ray, 10/28/2024: 1. No acute intracranial process. 2. Mechanical ventilation with partially visualized Endotracheal tube and Left NG tube. 3. Mild right ethmoid and sphenoid sinus disease. 4. 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 Chest x-ray, 11/02/2024: 1. Hemodialysis catheter in place from the right with the tip in the superior vena cava above the right atrium. 2. Endotracheal tube in place 4.7 cm above the teresa. 3. Questionable PICC line in the right arm in place in the axillary vein. 4. Enteric tube not visualized. CT head, : 1. No acute intracranial process. 2. Mechanical ventilation with partially visualized Endotracheal tube and Left NG tube. 3. Mild right ethmoid and sphenoid sinus disease. 4. 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 No evidence of acute intracranial abnormality. 2. Acute sinusitis vital signs Vital Sign Date Time Temp Pulse Resp B/P (MAP) Pulse Ox O2 Delivery O2 Flow Rate FiO2 11/05/24 09:59 121/69 11/05/24 08:00 24 100 Mechanical Ventilator+ 30 30 11/05/24 08:00 60 11/05/24 04:00 99.7 99.7 11/04/24 10:00 30.0 Total Intake and Output 11/04/24 11/04/24 11/05/24 15:00 23:00 07:00 Intake Total 254 ml 254 ml 481 ml Output Total 1200 ml 450 ml Balance 254 ml -946 ml 31 ml medications Current Medications Medications Dose Ordered Sig/Sarita Route Start Time Stop Time Status Last Admin Dose Admin Norepinephrine Bitartrate 250 ml @ 3.75 mls/hr Q24H IV 10/28/24 15:00 10/30/24 05:56 3.75 MLS/HR Sodium Chloride 10 ml Q8HR IV 10/28/24 22:00 11/05/24 05:05 10 ML Pantoprazole Sodium 40 mg DAILY IV 10/29/24 10:00 11/05/24 09:59 40 MG Dopamine HCl/ Dextrose 250 ml @ 15.375 mls/ hr [id number] IV 10/29/24 13:15 10/29/24 14:00 15.375 MLS/HR Albuterol 2.5 mg Q6HR NEB 10/30/24 06:00 11/05/24 06:36 2.5 MG Ipratropium [place] 0.5 mg Q6HR NEB 10/30/24 06:00 11/05/24 06:36 0.5 MG Enteral Nutritional Formula 1,000 ml 30ML/HR GT 10/30/24 13:15 11/03/24 09:52 1,000 ML Ceftriaxone Sodium/Dextrose 50 ml @ 50 mls/hr DAILY IV 10/31/24 10:00 11/05/24 10:00 50 MLS/HR Dextrose 50 ml PRN PRN IV 10/30/24 23:00 Doxycycline Hyclate 100 ml @ 50 mls/hr Q12H IV 11/02/24 17:45 11/05/24 05:04 50 MLS/HR Propofol 100 ml @ 2.109 mls/ hr Q24H IV 11/03/24 17:15 Furosemide 60 mg DAILY IV 11/04/24 10:00 11/05/24 09:59 60 MG Diagnostic Test (Pha) 1 strip Q6H 11/04/24 18:00 11/05/24 05:05 1 STRIP Artificial Tears 1 drop Q6HP PRN EACHEYE 11/04/24 18:00 Heparin Sodium/ Dextrose 250 ml @ 15 mls/hr [id number] IV 11/05/24 09:30 11/05/24 09:44 15 MLS/HR Aspirin 81 mg DAILY GT 11/06/24 10:00 UNV objective The patient is well-nourished and well-developed with no distress. The patient is intubated Status post right BKA MENTAL STATUS: Not responsive to the surroundings, CRANIAL NERVES: Pupils are equal, round and reactive, small. There are corneal reflexes and doll's eyes phenomenon. No signs of facial weakness. There are gagging or coughing reflexes SENSATION: No responses to pain stimuli. MOTOR: Normal tone in the upper and lower extremity. Normal muscle bulk. No fasciculations. No spontaneous movement. REFLEXES: Deep tendon reflexes are symmetrical. No pathological reflexes. CEREBELLAR/COORDINATION: Deferred GAIT/STATION: deferred laboratory and microbiology Laboratory Tests 11/05/24 02:25 Test 11/05/24 02:25 Range/Units Serum Glucose 134 H 74-106 mg/dL Problem List Coma, unremarkable follow-up CT brain Metabolic encephalopathy Hypoxic encephalopathy Toxic encephalopathy Cardiopulmonary arrest/status post CPR Respiratory failure Metabolic acidosis Hypoxia Hypokalemia Shocked liver Assessment/Plan Monitoring Supportive treatment Follow-up labs EEG ICU care Stabilize vitals Respiratory support/vent management Oxygen IV antibiotics More recommendation per clinical course This medical document was created using an electronic medical record system with [employer] dictation system. Although this document has been carefully reviewed, there may still be some phonetic and typographical errors. These areas are purely typographical due to imperfections of the software programs, and do not reflect any compromise in the patient's medical care. Prognosis guarded Dietary Evaluation Review Comments: 1. consider TF Nepro @30ml/hr providing 58g Protein, 1274kcal 523ml free water, supporting 89% protein needs and 78% energy needs 2. Low ju score, reassess for wound healing when pt is nutritionally stablized Expected Outcomes/Goals: lessons uremic syndrome, gradual wt loss Plan discussed with: Son, Other Critical Care Time(min): 35 TRACEY FUNK MD Nov 05, 2024 11:05
[2024-11-05] MEDS: fentaNYL CITRATE 100 MCG/2 ML VL IV ONE (11:55)
[2024-11-05] MEDS: fentaNYL Drip 2500mCg/250mlNS 250 ML IV SCH (11:55)
[2024-11-05] MEDS: fentaNYL Drip 2500mCg/250mlNS 250 ML IV ONE (11:57)
[2024-11-05 16:30] LABS: INR 1.17 (0.9-1.15); Partial Thromboplastin Time 67.6 SEC (24.5-34.5); Prothrombin Time 12.2 sec (9.3-11.8)
--- NOTE | 2024-11-05 17:36 | DVHPN2 ---
Progress Note Date Seen: Nov 05, 2024 Medical Necessity Reason Pt with a Central, PICC or Fol: Yes The following are medically ne: Central Line, Andre Catheter Reason for andre catheter: Strict I&O Subjective Review of Systems: NEURO:Abnormal Objective vital signs Vital Sign Date Time Temp Pulse Resp B/P (MAP) Pulse Ox O2 Delivery O2 Flow Rate FiO2 11/05/24 16:15 66 19 133/79 (97) 100 11/05/24 16:00 98.4 98.4 11/05/24 16:00 30 11/05/24 08:00 Mechanical Ventilator+ 11/04/24 10:00 30.0 Total Intake and Output 11/04/24 11/04/24 11/05/24 15:00 23:00 07:00 Intake Total 254 ml 254 ml 494 ml Output Total 1200 ml 450 ml Balance 254 ml -946 ml 44 ml medications Current Medications Medications Dose Ordered Sig/Sarita Route Start Time Stop Time Status Last Admin Dose Admin Norepinephrine Bitartrate 250 ml @ 3.75 mls/hr Q24H IV 10/28/24 15:00 10/30/24 05:56 3.75 MLS/HR Sodium Chloride 10 ml Q8HR IV 10/28/24 22:00 11/05/24 12:56 10 ML Pantoprazole Sodium 40 mg DAILY IV 10/29/24 10:00 11/05/24 09:59 40 MG Dopamine HCl/ Dextrose 250 ml @ 15.375 mls/ hr [id number] IV 10/29/24 13:15 10/29/24 14:00 15.375 MLS/HR Albuterol 2.5 mg Q6HR NEB 10/30/24 06:00 11/05/24 12:41 2.5 MG Ipratropium [place] 0.5 mg Q6HR NEB 10/30/24 06:00 11/05/24 12:41 0.5 MG Enteral Nutritional Formula 1,000 ml 30ML/HR GT 10/30/24 13:15 11/05/24 15:57 1,000 ML Ceftriaxone Sodium/Dextrose 50 ml @ 50 mls/hr DAILY IV 10/31/24 10:00 11/05/24 10:00 50 MLS/HR Dextrose 50 ml PRN PRN IV 10/30/24 23:00 Doxycycline Hyclate 100 ml @ 50 mls/hr Q12H IV 11/02/24 17:45 11/05/24 05:04 50 MLS/HR Propofol 100 ml @ 2.109 mls/ hr Q24H IV 11/03/24 17:15 Furosemide 60 mg DAILY IV 11/04/24 10:00 11/05/24 09:59 60 MG Diagnostic Test (Pha) 1 strip Q6H 11/04/24 18:00 11/05/24 12:00 1 STRIP Artificial Tears 1 drop Q6HP PRN EACHEYE 11/04/24 18:00 Heparin Sodium/ Dextrose 250 ml @ 15 mls/hr [id number] IV 11/05/24 09:30 11/05/24 09:44 15 MLS/HR Aspirin 81 mg DAILY GT 11/06/24 10:00 Fentanyl Citrate 250 ml @ 2.5 mls/hr Q24H IV 11/05/24 11:45 11/05/24 11:55 2.5 MLS/HR Examination: GENERAL:Abnormal, LUNGS:Abnormal, CVS:Normal, NEURO:Abnormal laboratory and microbiology Laboratory Tests 11/05/24 02:25 Test 11/05/24 02:25 Range/Units Serum Glucose 134 H 74-106 mg/dL Microbiology Date/Time Source Procedure Growth Status 11/02/24 20:00 Knee Fluid Gram Stain - Final Resulted 11/02/24 20:00 Knee Fluid Body Fluid Culture - Preliminary Resulted 10/29/24 11:50 Urine - [place] Urine Culture - Final Complete 10/29/24 05:39 Nose MRSA Screen - Final Complete 10/28/24 12:00 Sputum Expectorated Sputum Gram Stain - Final Complete 10/28/24 12:00 Respiratory Culture - Final Serratia marcescens Proteus mirabilis Staphylococcus aureus Complete 10/28/24 12:00 Blood Blood Culture - Final NO GROWTH AFTER 5 DAYS OF INCUBATION. Complete Problem List/Assessment/Plan Problem List/Assessment/Plan 74-year-old male past medical history of peripheral vascular disease and history of bilateral knee replacements and right BKA presents to the hospital with unresponsiveness in the setting of cardiac arrest. Acute kidney injury with acute tubular necrosis kidney Chronic disease unspecified no Hyperkalemia Acute respiratory failure Altered mental status Cardiac arrest HD tentative next is tomorrow, will goal to achieve better metabolic clearance minimal UF , still urinating with diuretics , decrease dose if develops hypotension. Cumulative fluid balance for this hospitalization is approximately even, mildly negative Neurology evaluation ongoing post cardiac arrest , minimal light reflex Monitor electrolytes Avoid hypotension Avoid contrast studies at this time Neuro checks Guarded prognosis given cardiac arrest family is aware of this and are considering and discussing goals of care for directed therapy based on a new an ongoing information. Plan discussed with: Spouse, Son Dietary Evaluation Review Comments: 1. consider TF Nepro @30ml/hr providing 58g Protein, 1274kcal 523ml free water, supporting 89% protein needs and 78% energy needs 2. Low ju score, reassess for wound healing when pt is nutritionally stablized Expected Outcomes/Goals: lessons uremic syndrome, gradual wt loss Total Time (mins): 33 ANNY JOINER MD Nov 05, 2024 17:36
--- NOTE | 2024-11-05 18:18 | DVHPNRES ---
Progress Note Date Seen: Nov 05, 2024 Resident Creating Document: JHBLANCA HALE RESIDENT Medical Necessity Reason Pt with a Central, PICC or Fol: Yes The following are medically ne: Central Line, Andre Catheter Reason for andre catheter: Strict I&O Subjective Review of Systems 11/04- patient seen and examined at the bedside. Sedation has been off since Wednesday 11/01. Patient is more responsive as compared to yesterday, opening his eyes to painful physical stimulation, had a brief period of sudden opening of his eyes but did not track, breathing over the ventilator following which she had to be started on mild dose fentanyl drip. Minimal ventilator settings with a FiO2 30%, peep of 5. Urine output increased to 1650 mL on 11/05. Chest x-ray showed improved congestion. Patient had a T-max overnight of 99.7 [place] [address], similar as yesterday. Neurology evaluation was done and MRI was ordered but as the patient has a nerve stimulator, metal implant, compliance with the MRI in the hospital will be checked. Objective vital signs Vital Sign Date Time Temp Pulse Resp B/P (MAP) Pulse Ox O2 Delivery O2 Flow Rate FiO2 11/05/24 16:15 66 19 133/79 (97) 100 11/05/24 16:00 98.4 98.4 11/05/24 16:00 30 11/05/24 08:00 Mechanical Ventilator+ 11/04/24 10:00 30.0 Total Intake and Output 11/04/24 11/04/24 11/05/24 15:00 23:00 07:00 Intake Total 254 ml 254 ml 494 ml Output Total 1200 ml 450 ml Balance 254 ml -946 ml 44 ml medications Current Medications Medications Dose Ordered Sig/Sarita Route Start Time Stop Time Status Last Admin Dose Admin Norepinephrine Bitartrate 250 ml @ 3.75 mls/hr Q24H IV 10/28/24 15:00 10/30/24 05:56 3.75 MLS/HR Sodium Chloride 10 ml Q8HR IV 10/28/24 22:00 11/05/24 12:56 10 ML Pantoprazole Sodium 40 mg DAILY IV 10/29/24 10:00 11/05/24 09:59 40 MG Dopamine HCl/ Dextrose 250 ml @ 15.375 mls/ hr [id number] IV 10/29/24 13:15 10/29/24 14:00 15.375 MLS/HR Albuterol 2.5 mg Q6HR NEB 10/30/24 06:00 11/05/24 12:41 2.5 MG Ipratropium [place] 0.5 mg Q6HR NEB 10/30/24 06:00 11/05/24 12:41 0.5 MG Enteral Nutritional Formula 1,000 ml 30ML/HR GT 10/30/24 13:15 11/05/24 15:57 1,000 ML Ceftriaxone Sodium/Dextrose 50 ml @ 50 mls/hr DAILY IV 10/31/24 10:00 11/05/24 10:00 50 MLS/HR Dextrose 50 ml PRN PRN IV 10/30/24 23:00 Doxycycline Hyclate 100 ml @ 50 mls/hr Q12H IV 11/02/24 17:45 11/05/24 05:04 50 MLS/HR Propofol 100 ml @ 2.109 mls/ hr Q24H IV 11/03/24 17:15 Furosemide 60 mg DAILY IV 11/04/24 10:00 11/05/24 09:59 60 MG Diagnostic Test (Pha) 1 strip Q6H 11/04/24 18:00 11/05/24 12:00 1 STRIP Artificial Tears 1 drop Q6HP PRN EACHEYE 11/04/24 18:00 Heparin Sodium/ Dextrose 250 ml @ 15 mls/hr [id number] IV 11/05/24 09:30 11/05/24 09:44 15 MLS/HR Aspirin 81 mg DAILY GT 11/06/24 10:00 Fentanyl Citrate 250 ml @ 2.5 mls/hr Q24H IV 11/05/24 11:45 11/05/24 11:55 2.5 MLS/HR Examination Gen - no pallor, no icterus, no cyanosis, no clubbing, no LAD, no edema in the left lower extremity . Skin - Patients skin is warm and dry. HEENT - normocephalic, atraumatic, moist mucous membranes. Neck - full ROM, no LAD, no JVD Pulmonary - B/L equal breath sounds with mild rales, no wheezing, no stridor. cardiovascular - regular S1,S2 heard, no added sounds, no murmurs heard. peripheral pulses normal radial 2+, poor pedal pulses in the left side. capillary refill normal <2 secs in upper extremities GI - soft, abdomen. Bowel sounds normoactive Neurological - patient is off sedation and on mechanical ventilation. Responds to painful physical stimulation but does not track and does not follow commands laboratory and microbiology Laboratory Tests 11/05/24 02:25 Test 11/05/24 02:25 Range/Units Serum Glucose 134 H 74-106 mg/dL Microbiology Date/Time Source Procedure Growth Status 11/02/24 20:00 Knee Fluid Gram Stain - Final Resulted 11/02/24 20:00 Knee Fluid Body Fluid Culture - Preliminary Resulted 10/29/24 11:50 Urine - Andre [place] Urine Culture - Final Complete 10/29/24 05:39 Nose MRSA Screen - Final Complete 10/28/24 12:00 Sputum Expectorated Sputum Gram Stain - Final Complete 10/28/24 12:00 Respiratory Culture - Final Serratia marcescens Proteus mirabilis Staphylococcus aureus Complete 10/28/24 12:00 Blood Blood Culture - Final NO GROWTH AFTER 5 DAYS OF INCUBATION. Complete Problem List/Assessment/Plan Problem List/Assessment/Plan Neurology Acute metabolic encephalopathy s/p cardiopulmonary arrest - head CT shows no acute intracranial abnormality, mild right ethmoid and sphenoid sinus disease - on mechanical ventilation - EEG report pending - MRI brain pending, as the patient does not have stimulator compliance with the MRI to be checked - started on low-dose fentanyl drip as the patient was agitated Cardiovascular S/p cardiopulmonary arrest with ROSC Cardiogenic shock NSTEMI likely type 1 H/o coronary artery disease without any intervention Sinus bradycardia, resolving Probable underlying heart failure, systolic versus diastolic - initial ECG showed sinus bradycardia with a PVCs and T-wave inversions in lead V3 V4, troponins elevated - weaned off norepinephrine on 10/31, early in the morning - on heparin drip as per ACS protocol - stable hemodynamics - started on aspirin 81 mg daily Respiratory Status post cardiopulmonary arrest on mechanical ventilation pulmonary vascular congestion likely due to cardiogenic shock Probable COPD Aspiration pneumonia - chest x-ray shows improved congestion bilaterally - FiO2 30%, peep of 5, Vt 500ml - sputum cultures growing Serratia, Proteus mirabilis, MSSA, patient on ceftriaxone and doxycycline Nephrology/metabolic WILMER on CKD likely due to acute tubular necrosis from shock Probable underlying CKD Anion gap metabolic acidosis is likely from lactic acidosis from shock - urine output improving - underwent hemodialysis on 11/03 GI Shock liver Possible infectious/inflammatory colitis Possible cholecystitis Mild colonic diverticulosis - transaminases trending down - abdominal ultrasound showed distended gallbladder with wall thickening and edema, mild dilatation of the CBD, increased echogenicity of bilateral kidneys - CT abdomen pelvis without contrast showed mild wall thickening throughout the large bowel, bladder wall thickening, distended gallbladder Infectious disease Sepsis likely from pneumonia - sputum cultures showing growth of Serratia, Proteus mirabilis, MSSA - blood cultures after 5 days of incubation showing no growth - urine culture showed no growth - patient on ceftriaxone and doxycycline Hematology Microcytic hypochromic anemia likely from iron-deficiency Possible anemia from CKD - monitor H&H DVT prophylaxis: On heparin drip PUD prophylaxis: On Protonix Right upper arm midline inserted on 11/02 Intubated on 10/28 Andre's catheter on 10/28 tube feedings Right IJ temporary dialysis catheter inserted on 11/02 Left IJ CVC inserted on 11/03 Goals of care discussed with the and the son at bedside. Code status: Full code Critical care time spent excluding procedures: 76 minutes Plan discussed with Dr. Nascimento Plan discussed with: Spouse, Son, Other (SHRAVAN Minor) My Orders My Orders Orders - BLANCA FRIEDMAN Procedure Category Date Status Time Abg W/ Co-Ox RT 11/05/24 Logged 04:00 Fentanyl Drip PHA 11/05/24 In Process 2500mcg/250mlns 11:45 Basic Metabolic Panel LAB 11/06/24 Verified 04:00 Chest Xray 1 View XY 11/06/24 Logged 04:00 Abg W/ Co-Ox RT 11/06/24 Logged 04:00 Ventilator Orders RT 11/05/24 Transmitted 15:16 Dietary Evaluation Review Comments: 1. consider TF Nepro @30ml/hr providing 58g Protein, 1274kcal 523ml free water, supporting 89% protein needs and 78% energy needs 2. Low ju score, reassess for wound healing when pt is nutritionally stablized Expected Outcomes/Goals: lessons uremic syndrome, gradual wt loss Date of Service: Nov 05, 2024 Billing Provider: JOSE A NASCIMENTO MD Common Visit Codes: 63976-[id number] CARE 30-74 MIN BLANCA FRIEDMAN RESIDENT Nov 05, 2024 18:18 JOSE A NASCIMENTO MD Nov 08, 2024 15:32
--- NOTE | 2024-11-05 23:01 | DVHEEG2 ---
Neurology EEG Procedural Note Procedural Note EXAM DATE: 11/03/2024 REFERRING DOCTOR: Dr. Funk TECHNIQUE: Eighteen channels of EEG, 2 channels of EOG, and 1 channel of EKG were recorded using the International 10/20 system. CLINICAL DATA: The patient was referred for an EEG evaluation for the evidence of seizure disorder. MEDICATIONS: See the chart BACKGROUND ACTIVITY: The record showed mostly low amplitude diffuse theta activity over both hemispheres that was reactive to external stimuli ACTIVATION: Hyperventilation: Not done Photic Stimulation: Not done Sleep: Nonresponsiveness IMPRESSION: This is a moderately abnormal EEG, this EEG is seen in moderate cerebral dysfunction due to metabolic/hypoxic encephalopathy or medication effects, please correlate clinically The EKG channel showed a regular heart rate of 78/minute [place] [address] TRACEY FUNK MD Nov 05, 2024 23:01
[2024-11-06] VITALS (96 sets, daily range): BP systolic 65–134; BP diastolic 43–91; PULSE 30–145; RESP 0–40; TEMP 69.3–99.7; O2SAT 56–100
[2024-11-06 00:23] LABS: INR 1.18 (0.9-1.15); Prothrombin Time 12.3 sec (9.3-11.8)
[2024-11-06 00:27] LABS: Partial Thromboplastin Time 70.9 SEC (24.5-34.5)
[2024-11-06 04:28] LABS: Hematocrit 26.2 % (41.0-53.0); Hemoglobin 8.2 g/dL (13.5-17.5); Mean Corpuscular Hemoglobin 22.5 pg (28.0-32.0); Mean Corpuscular Volume 71.8 fL (80.0-100.0)
[2024-11-06 04:38] LABS: Chloride 106 mmol/L (98-107); Potassium 4.1 mmol/L (3.5-5.1)
[2024-11-06 04:39] LABS: Anion Gap 13 (5-15); Carbon Dioxide 26 mmol/L (20-31)
[2024-11-06 04:40] LABS: Calcium 9.2 mg/dL (8.7-10.4)
[2024-11-06 04:42] LABS: Sodium 145 mmol/L (136-145)
[2024-11-06 04:44] LABS: BUN/Creatinine Ratio 14.6 (10.0-20.0)
[2024-11-06 04:45] LABS: Blood Urea Nitrogen 78 mg/dL (9-23); Glucose 144 mg/dL (74-106)
[2024-11-06 04:55] LABS: INR 1.19 (0.9-1.15); Prothrombin Time 12.4 sec (9.3-11.8)
[2024-11-06 05:00] LABS: Partial Thromboplastin Time 99.2 SEC (24.5-34.5)
[2024-11-06 05:06] LABS: Ovalocytes FEW; Total Cells Counted 100.0 (100)
--- NOTE | 2024-11-06 05:46 | DVH ---
CHEST RADIOGRAPH Indication: on vent Technique: 1 view Comparison: XY CHEST PORTABLE on DOS: 11/05/24, XY CHEST XRAY 1 VIEW on DOS: 11/04/24, XY CHEST PORTABLE on DOS: 11/03/24, XY CHEST XRAY 1 VIEW on DOS: 11/03/24, XY CHEST PORTABLE on DOS: 11/02/24 FINDINGS: Lines and Tubes: Unchanged endotracheal tube, enteric tube, right and left IJ catheters. Lungs: Mild retrocardiac atelectasis. Pleura: No effusion or pneumothorax. The right costophrenic angle is excluded. Cardiomediastinal contours: Unremarkable. Other: No acute osseous abnormality. IMPRESSION: 1. No significant change from the previous study. Stable support devices.
[2024-11-06] MEDS: HEPARIN DRIP/D5W 100UNITS/ML 250 ML IV SCH (06:00)
[2024-11-06] MEDS: SODIUM CHL 0.9% 1000 ML BAG XX ONE (07:00)
[2024-11-06 07:02] LABS: Base Excess -1.2 mmol/L (-2.0-3.0)
[2024-11-06] MEDS ORDERED: VANCOMYCIN PER PHARMACY 0 MG IV SCH (08:00)
[2024-11-06] MEDS: SODIUM CHLORIDE 0.9% 1,000 ML IV ONE (08:00)
[2024-11-06] MEDS: LEVALBUTEROL HCL 1.25 MG/3 ML NEB ONE (08:49)
[2024-11-06] MEDS ORDERED: LEVALBUTEROL HCL 1.25 MG/3 ML NEB NEB SCH ×3 (09:30→12:00)
--- NOTE | 2024-11-06 09:47 | DVH ---
CHEST RADIOGRAPH Indication: Increased WOB Technique: Single frontal view of the chest was obtained COMPARISON: XY CHEST XRAY 1 VIEW on DOS: 11/06/24, XY CHEST PORTABLE on DOS: 11/05/24, XY CHEST XRAY 1 EW on DOS: 11/04/24, XY CHEST PORTABLE on DOS: 11/03/24, XY CHEST XRAY 1 VIEW on DOS: 11/03/24 FINDINGS: Lines and Tubes: Endotracheal tube and right and left central venous catheter in satisfactory positio n Lungs: Clear Pleura: No effusion. No pneumothorax. Cardiomediastinal contours: Unremarkable Bones: Unremarkable IMPRESSION: Lines and tubes in satisfactory position. No significant interval change.
[2024-11-06 10:30] LABS: Lactic Acid w/Reflex 5.7 mmol/L (0.4-2.0)
[2024-11-06] MEDS: VANCOMYCIN 1GM/200ML PM 200 ML IV ONE (10:51)
[2024-11-06] MEDS ORDERED: MEROPENEM 1GM IVPB 50 ML IV ONE (12:00)
--- NOTE | 2024-11-06 12:04 | DVHPN2 ---
Progress Note Date Seen: Nov 06, 2024 Medical Necessity Reason Pt with a Central, PICC or Fol: Yes The following are medically ne: Central Line, Andre Catheter Reason for andre catheter: Strict I&O Subjective Review of Systems: Deferred Objective vital signs Vital Sign Date Time Temp Pulse Resp B/P (MAP) Pulse Ox O2 Delivery O2 Flow Rate FiO2 11/06/24 09:39 115 30 97/71 (80) 100 100 11/06/24 06:45 99.3 210.7 11/05/24 20:30 Mechanical Ventilator+ 11/04/24 10:00 30.0 Total Intake and Output 11/05/24 11/05/24 11/06/24 15:00 23:00 07:00 Intake Total 143.5 ml 642.327 ml 580.975 ml Output Total 1225 ml 500 ml Balance 143.5 ml -582.673 ml 80.975 ml medications Current Medications Medications Dose Ordered Sig/Sarita Route Start Time Stop Time Status Last Admin Dose Admin Norepinephrine Bitartrate 250 ml @ 3.75 mls/hr Q24H IV 10/28/24 15:00 11/06/24 06:16 3.75 MLS/HR Sodium Chloride 10 ml Q8HR IV 10/28/24 22:00 11/06/24 06:05 10 ML Pantoprazole Sodium 40 mg DAILY IV 10/29/24 10:00 11/06/24 10:50 40 MG Dopamine HCl/ Dextrose 250 ml @ 15.375 mls/ hr [id number] IV 10/29/24 13:15 10/29/24 14:00 15.375 MLS/HR Ipratropium [place] 0.5 mg Q6HR NEB 10/30/24 06:00 11/06/24 06:18 0.5 MG Enteral Nutritional Formula 1,000 ml 30ML/HR GT 10/30/24 13:15 11/05/24 15:57 1,000 ML Dextrose 50 ml PRN PRN IV 10/30/24 23:00 Propofol 100 ml @ 2.109 mls/ hr Q24H IV 11/03/24 17:15 11/05/24 21:48 2.109 MLS/HR Diagnostic Test (Pha) 1 strip Q6H 11/04/24 18:00 11/05/24 23:38 1 STRIP Artificial Tears 1 drop Q6HP PRN EACHEYE 11/04/24 18:00 Aspirin 81 mg DAILY GT 11/06/24 10:00 11/06/24 10:50 81 MG Fentanyl Citrate 250 ml @ 2.5 mls/hr Q24H IV 11/05/24 11:45 11/05/24 11:55 2.5 MLS/HR Heparin Sodium/ Dextrose 250 ml @ 12 mls/hr [id number] IV 11/06/24 06:00 11/06/24 06:00 12 MLS/HR Vancomycin HCl 0 ml @ 0 mls/hr UD IV 11/06/24 08:00 Meropenem 50 ml @ 17 mls/hr DAILY IV 11/07/24 10:00 Levalbuterol HCl 1.25 mg Q6H NEB 11/06/24 12:00 Examination: GENERAL:Abnormal, LUNGS:Abnormal, CVS:Abnormal, ABDOMEN:Normal laboratory and microbiology Laboratory Tests 11/06/24 04:00 Test 11/06/24 04:00 Range/Units Serum Glucose 144 H 74-106 mg/dL Microbiology Date/Time Source Procedure Growth Status 11/02/24 20:00 Knee Fluid Gram Stain - Final Resulted 11/02/24 20:00 Knee Fluid Body Fluid Culture - Preliminary Resulted 10/29/24 11:50 Urine - Andre [place] Urine Culture - Final Complete 10/29/24 05:39 Nose MRSA Screen - Final Complete 10/28/24 12:00 Sputum Expectorated Sputum Gram Stain - Final Complete 10/28/24 12:00 Respiratory Culture - Final Serratia marcescens Proteus mirabilis Staphylococcus aureus Complete 10/28/24 12:00 Blood Blood Culture - Final NO GROWTH AFTER 5 DAYS OF INCUBATION. Complete Problem List/Assessment/Plan Problem List/Assessment/Plan 74-year-old male past medical history of peripheral vascular disease and history of bilateral knee replacements and right BKA presents to the hospital with unresponsiveness in the setting of cardiac arrest. Acute kidney injury with acute tubular necrosis kidney Chronic disease unspecified no Hyperkalemia Acute respiratory failure Altered mental status Cardiac arrest HD today unsuccessful due to immediate instability, desaturation. now max pressors and max vent settings Neurology Avoid hypotension Neuro checks grim prognosis, family is discussion compassionate extubation Plan discussed with: Spouse My Orders My Orders Orders - ANNY JOINER MD Procedure Category Date Status Time Hemodialysis Orders ORDERS 11/06/24 Transmitted 07:00 Dialysis Nursing GRANT 11/06/24 In Process Message 07:00 Document Fluid Input GRANT 11/06/24 In Process And Outpu 07:00 Dietary Evaluation Review Comments: 1. consider TF Nepro @30ml/hr providing 58g Protein, 1274kcal 523ml free water, supporting 89% protein needs and 78% energy needs 2. Low ju score, reassess for wound healing when pt is nutritionally stablized Expected Outcomes/Goals: lessons uremic syndrome, gradual wt loss Critical Care Time (mins): 33 ANNY JOINER MD Nov 06, 2024 12:04
[2024-11-06] MEDS: LORazepam 2MG/ML-1ML VIAL IV PRN (12:40)
[2024-11-06] MEDS: MORPHINE SULFATE 4 MG/ML SYR/VIAL IV PRN (12:42)
--- NOTE | 2024-11-06 14:08 | ECG ---
[facility] Test Date: 2024-11-06 Test Time: 08:47:08 Pat Name: ARJUN NYE Department: icu Room: [address] [place] [address] A Gender: M [employer]: tank : 1950 Requested By: BLANCA FRIEDMAN Order Number: [id number] Reading MD: Jay Landeros Measurements Intervals [place] Rate: 122 P: 85 IA: 129 QRS: 80 QRSD: 88 T: 66 QT: 287 QTc: 409 Interpretive Statements Sinus tachycardia Ventricular premature complex Aberrant conduction of SV complex(es) Borderline low voltage, extremity leads Electronically Signed On 11-09-2024 18:42:38 PDT by Jay Landeros Please click the below link to view image of tracing.
--- NOTE | 2024-11-06 19:19 | DVHDS2 ---
Summary Date of Admission Oct 28, 2024 at 17:40 Date and Time of Expiration: Nov 06, 2024 13:06 Reason for Admission: Cardiopulmonary arrest Wounds: None Labs/Diagnostic Data: Laboratory Results Test 11/06/24 09:50 11/06/24 06:50 11/06/24 04:00 11/05/24 23:37 Lactic Acid Level 5.7 mmol/L (0.4-2.0) Blood Gas Specimen Type Arterial Blood Gas Sample Site Right brachial Blood Gas Patient Temperature 37.0 Arterial Blood Date Drawn [id number] Arterial Blood pH 7.502 (7.350-7.450) Arterial Blood Partial Pressure CO2 28.0 mmHg (35.0-48.0) Arterial Blood Partial Pressure O2 86.9 mmHg (83.0-108.0) Arterial Blood HCO3 21.4 mmol/L (21.0-28.0) Arterial Blood Oxygen Saturation 95.9 % (94.0-98.0) Arterial Blood Base Excess -1.2 mmol/L (-2.0-3.0) Arterial Blood Oxyhemoglobin 94.8 % (94.0-98.0) Arterial Blood Carboxyhemoglobin 0.9 % (0.5-1.5) Arterial Blood Methemoglobin 0.2 % (0.0-1.5) Cristhian Test N/a Blood Gas Total Hemoglobin 8.60 g/dL (13.5-17.5) Blood Gas Set Respiration Rate 20.0 Blood Gas Modality Vent - ac FiO2 % 30.0 Blood Gas Tidal Volume 500.0 Blood Gas PEEP or CPAP 5.0 White Blood Count 25.3 10^3/uL (4.4-10.8) Red Blood Count 3.65 10^6/uL (4.5-5.90) Hemoglobin 8.2 g/dL (13.5-17.5) Hematocrit 26.2 % (41.0-53.0) Mean Corpuscular Volume 71.8 fL (80.0-100.0) Mean Corpuscular Hemoglobin 22.5 pg (28.0-32.0) Mean Corpuscular Hemoglobin Concent 31.3 g/dL (32.0-36.0) Red Cell Distribution Width 20.0 % (11.8-14.3) Platelet Count 234 10^3/uL (140-450) Mean Platelet Volume 8.6 fL (6.9-10.8) Neutrophils (%) (Auto) % (37.0-80.0) Lymphocytes (%) (Auto) % (10.0-50.0) Monocytes (%) (Auto) % (0.0-12.0) Basophils (%) (Auto) % (0.0-2.0) Neutrophils # (Auto) 10 ^3/uL (1.6-8.6) Lymphocytes # (Auto) 10 ^3/uL (0.4-5.4) Monocytes # (Auto) 10 ^3/uL (0-1.3) Differential Total Cells Counted 100.0 (100) Neutrophils % (Manual) 88 (37.0-80.0) Band Neutrophils % (Manual) 0 Lymphocytes % (Manual) 6 (10.0-50.0) Monocytes % (Manual) 6 (0-12) Eosinophils % (Manual) 0 (0-7) Basophils % (Manual) 0 (0.0-2.0) Metamyelocytes % (manual) 0 Myelocytes % (Manual) 0 Promyelocytes % (Manual) 0 Blast Cells % (Manual) 0 Reactive Lymphocytes 0 Platelet Estimate Adequate Large Platelets Few Hypochromasia (manual) Slight Microcytosis Moderate Ovalocytes Few Prothrombin Time 12.4 sec (9.3-11.8) Prothrombin Time INR 1.19 (0.9-1.15) Activated Partial Thromboplast Time 99.2 SEC (24.5-34.5) Sodium Level 145 mmol/L (136-145) Potassium Level 4.1 mmol/L (3.5-5.1) Chloride Level 106 mmol/L (98-107) Carbon Dioxide Level 26 mmol/L (20-31) Anion Gap 13 (5-15) Blood Urea Nitrogen 78 mg/dL (9-23) Creatinine 5.34 mg/dL (0.700-1.30) Glomerular Filtration Rate Calc 11 mL/min (>90) BUN/Creatinine Ratio 14.6 (10.0-20.0) Serum Glucose 144 mg/dL (74-106) Calcium Level 9.2 mg/dL (8.7-10.4) POC Glucose 149 mg/dl (70-106) Test 11/05/24 02:25 11/04/24 02:37 11/03/24 17:50 11/02/24 20:00 Eosinophils (%) (Auto) 0.6 % (0.0-7.0) Eosinophils # (Auto) 0.1 10 ^3/uL (0-0.8) Basophils # (Auto) 0.1 10 ^3/uL (0-0.2) Nucleated Red Blood Cells 0.0 % Magnesium Level 2.0 mg/dL (1.6-2.6) Hepatitis B Surface Antigen Negative (Negative) Urine Color Yellow (Yellow) Urine Clarity Turbid (Clear) Urine pH 5.5 (5.0-9.0) Urine Specific [place] 1.016 (1.001-1.035) Urine Protein 1+ (Negative) Urine Ketones Negative (Negative) Urine Blood 2+ /uL (Negative) Urine Nitrite Negative (Negative) Urine Bilirubin Negative (Negative) Urine Urobilinogen Normal mg/dL (Negative) Urine Leukocyte Esterase Negative /uL (Negative) Urine RBC 10 /hpf (0 - 3) Urine Microscopic WBC 6 /HPF (0-3) Urine Squamous Epithelial Cells None seen /hpf (<5) Urine Amorphous Crystals Few /hpf (None Seen) Urine Bacteria Few /hpf (None Seen) Urine Glucose Normal mg/dL (Normal) Body Fluid Source Knee fluid Body Fluid WBC (Manual) 58 CUMM (0-200) Body Fluid RBC (Manual) 1933 CUMM (0-2000) Body Fluid Mononuclear Cells 97 % Body Fluid Polymorphonuclear Cells 3 % (0-25) Test 11/02/24 03:04 10/29/24 14:30 10/29/24 11:30 10/29/24 04:43 Total Bilirubin 0.2 mg/dL (0.2-1.0) Aspartate Amino Transferase (AST) 87 U/L (13-40) Alanine Aminotransferase (ALT) 472 U/L (7-40) Alkaline Phosphatase 52 U/L (46-116) Total Protein 5.0 g/dL (5.7-8.2) Albumin 3.1 g/dL (3.2-4.8) Random Vancomycin Level 13.6 ug/mL (5-10) Blood Gas Spontaneous Rate 22 Urine Creatinine 55.93 mg/dL (30.0-125.0) Urine Protein/Creatinine Ratio 1.64 Urine Sodium 51 mmol/L (40-220) Urine Total Protein 91.5 mg/dL (1-14) Triglycerides Level 88 mg/dL (< 150) Cholesterol Level 78 mg/dL (< 200) LDL Cholesterol 43 mg/dL (< 100) HDL Cholesterol 23 mg/dL (40-59) Test 10/28/24 21:35 10/28/24 19:30 10/28/24 17:32 10/28/24 13:48 Troponin I High Sensitivity 408 ng/L (</=54) D-Dimer, Quantitative 9.19 mg/L FEU (0.0-0.49) Direct Bilirubin 0.3 mg/dL (<0.3) Blood Gas Critical Value Read Back Yes Blood Gas Notified Whom Blood Gas Notified Time [id number] Blood Gas Notified By Nakita ernandez rt Test 10/28/24 13:46 10/28/24 12:10 B-Type Natriuretic Peptide 661.66 pg/mL (0-100) Phosphorus Level 11.7 mg/dL (2.4-5.1) Lipase 155 U/L (12-53) Other Laboratory Tests 11/06/24 04:00 Brief Hx & Hospital Course: HPI Patient is a 74-year-old male hyperlipidemia, 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 As per the patient was going out in his car and when the stopped to give him a message, he rolled down the window and when she started speaking to him she noticed that he was staring blankly and was not responding. Emergency services were called and CPR was initiated. Patient was defibrillated 4 times as per the . According to the report from the emergency physician bystander CPR was commenced for a total of 5 minutes still EMS arrived on the scene and patient was down for approximately 20 minutes before achieving ROSC in the field. Patient was given 3 rounds of epinephrine, 1 sodium bicarb, 1 calcium. Prior to the event patient was apparently normal, no recent surgery, no history of immobilization, no recent cancer diagnosis and the did not report of patient complaining of any chest pain, shortness of breath, fever, cough, abdominal pain, dysuria. She reported that yesterday patient did say he was not feeling well and was feeling achy. On arrival to the ED patient was bradycardic with the ECG showing sinus bradycardia, T-wave inversions in the lead V3-V4 and troponin levels were elevated. He had low blood pressure and was started on vasopressors. Brief hospital course During the hospital stay patient was started on vasopressor support and eventually as his hemodynamic stabilized was weaned off vasopressor support on 10/31. Sedation was also weaned off on 11/01. Patient had minimal ventilator requirements throughout the hospital stay. Patient did not have any meaningful responses to voice commands and suspecting anoxic brain injury neurology were consulted who performed EEG which reported moderately abnormal EEG which is seen in moderate cerebral dysfunction due to metabolic/hypoxic encephalopathy or medication effects. Patient was scheduled for an MRI on 11/06. Over the night of 0 7/0 8 patient's blood pressure started to go down and had to be put on back on vasopressor support and early in the morning of 0 8/0 8 patient started to desaturate and had to be put on 100% FiO2. Vasopressor requirements increased. the patient has started to have respiratory distress while being on maximum ventilator settings and family decided to terminally wean the patient and put him on comfort measures. Patient was terminally weaned at 12:00 p.m. on 11/06 and was pronounced at 1306hrs on 11/06. Consults/Reason for consult Nephrology consultation for WILMER Neurology consultation for anoxic brain injury Final Diagnosis/Problems List Acute metabolic/hypoxic encephalopathy s/p cardiopulmonary arrest S/p cardiopulmonary arrest with ROSC Cardiogenic shock NSTEMI likely type 1 H/o coronary artery disease without any intervention Sepsis likely from pneumonia Shock liver WILMER on CKD likely due to acute tubular necrosis from shock Probable underlying CKD Aspiration pneumonia Discharge Disposition: at Hospital [facility] RESIDENT Nov 06, 2024 19:19
[2024-11-07] MEDS ORDERED: MEROPENEM 500MG IVPB 50 ML IV SCH (10:00)
== END 2024-11-06 21:05 | DRG 870 ==
LOC: EDBD 11:52 → EDUNIT# 11:52 → ER 11:52 → OVERFLOW 17:40 → ICU WEST 10-30 01:55
PROVIDERS: ADMIT Internal Medicine Pulmonary Disease; ATTEND Internal Medicine Pulmonary Disease
PROC: 5A1955Z Respiratory Ventilation, Greater than 96 Consecutive Hours (ICD-10-PCS; 2024-10-28)
PROC: 0BH17EZ Insertion of Endotracheal Airway into Trachea, Via Natural or Artificial Opening (ICD-10-PCS; 2024-10-28)
PROC: 02HV33Z Insertion of Infusion Device into Superior Vena Cava, Percutaneous Approach (ICD-10-PCS; 2024-10-28)
PROC: B548ZZA Ultrasonography of Superior Vena Cava, Guidance (ICD-10-PCS; 2024-10-28)
PROC: 02HV33Z Insertion of Infusion Device into Superior Vena Cava, Percutaneous Approach (ICD-10-PCS; 2024-11-02)
PROC: 05HB33Z Insertion of Infusion Device into Right Basilic Vein, Percutaneous Approach (ICD-10-PCS; 2024-11-02)
PROC: B54MZZA Ultrasonography of Right Upper Extremity Veins, Guidance (ICD-10-PCS; 2024-11-02)
PROC: 02HV33Z Insertion of Infusion Device into Superior Vena Cava, Percutaneous Approach (ICD-10-PCS; principal; 2024-11-03)
PROC: 5A1D70Z Performance of Urinary Filtration, Intermittent, Less than 6 Hours Per Day (ICD-10-PCS; 2024-11-03)
PROC: 5A1D70Z Performance of Urinary Filtration, Intermittent, Less than 6 Hours Per Day (ICD-10-PCS; 2024-11-06)
DX: A41.9 Sepsis, unspecified organism (principal); I21.4 Non-ST elevation (NSTEMI) myocardial infarction; J96.01 Acute respiratory failure with hypoxia; R65.21 Severe sepsis with septic shock; J18.9 Pneumonia, unspecified organism; N17.0 Acute kidney failure with tubular necrosis; K72.00 Acute and subacute hepatic failure without coma; G92.8 Other toxic encephalopathy; J69.0 Pneumonitis due to inhalation of food and vomit; E87.20 Acidosis, unspecified; G93.1 Anoxic brain damage, not elsewhere classified; Z99.11 Dependence on respirator [ventilator] status; J44.0 Chronic obstructive pulmonary disease with (acute) lower respiratory infection; I46.9 Cardiac arrest, cause unspecified; R57.0 Cardiogenic shock; K74.60 Unspecified cirrhosis of liver; N18.9 Chronic kidney disease, unspecified; E87.5 Hyperkalemia; K81.9 Cholecystitis, unspecified; I25.10 Atherosclerotic heart disease of native coronary artery without angina pectoris; I49.3 Ventricular premature depolarization; E87.6 Hypokalemia; D50.9 Iron deficiency anemia, unspecified; K57.30 Diverticulosis of large intestine without perforation or abscess without bleeding; G93.89 Other specified disorders of brain; K82.8 Other specified diseases of gallbladder; I07.1 Rheumatic tricuspid insufficiency; D69.6 Thrombocytopenia, unspecified; E78.5 Hyperlipidemia, unspecified; I12.9 Hypertensive chronic kidney disease with stage 1 through stage 4 chronic kidney disease, or unspecified chronic kidney disease; Z79.899 Other long term (current) drug therapy; Z96.652 Presence of left artificial knee joint; Z89.511 Acquired absence of right leg below knee; Z87.891 Personal history of nicotine dependence
CPT/HCPCS: 36415; 36556; 36600; 70450; 71045; 73560; 74176; 76700; 80048; 80053; 80061; 80076; 80202; 81001; 82570; 82805; 82962; 83605; 83690; 83735; 83880; 84100; 84156; 84300; 84484; 85007; 85025; 85027; 85379; 85610; 85730; 87040; 87070; 87077; 87081; 87086; 87186; 87205; 87340; 89051; 90935; 93005; 93306; 93971; 94002; 94003; 94640; 95819; 96365; 99291; 99292; G0378; J0636; J0692; J1815; J2470; J2543; J2704; J3480